=== PATIENT | female | born 1975 | race Caucasian/White ===

== ENCOUNTER → 2016-10-05 | Outpatient (CLI) | payer OTHER ==
--- NOTE | 2016-10-06 06:40 | REP ---
MRI LUMBAR SPINE WITHOUT CONTRAST: HISTORY: Back pain. COMPARISON: 10/02/2015. Decreased signal intensity on T2-weighted images is present in the L2-3 through L5-S1 intervertebral discs. The L3-4 and L4-5 intervertebral discs are decreased in height. These findings are consistent with disc degeneration. There is no disc bulge or herniation at the L1-2 and L2-3 levels. The nerves exit the neural foramina without compression. A diffuse disc bulge is present at the L3-4 level. There is minimal compression of the thecal sac. The L3 nerves exit the neural foramina without compression. A diffuse disc bulge is present at the L4-5 level. There is minimal compression of the thecal sac. The L4 nerves exit the neural foramina without compression. A diffuse disc bulge and small right paracentral and intraforaminal disc protrusion are present at the L5-S1 level. There is minimal compression of the thecal sac and right S1 nerve as it exits the thecal sac. The left S1 nerve is normal. The L5 nerves exit the neural foramina without compression. The conus medullaris is normal in appearance terminating at the level of the T12 vertebral body. A hemangioma is present in the L2 vertebral body. Increased signal intensity on T2-weighted images is present in the endplates of the L2, L4 and L5 vertebral bodies. This represents degenerative change. IMPRESSION: 1. Diffuse disc bulges at the L3-4 and L4-5 levels with minimal thecal sac compression. 2. Diffuse disc bulge and small right paracentral and intraforaminal disc protrusion at the L5-S1 level with minimal compression of the thecal sac and right S1 nerve as it exits the thecal sac. There is no significant change compared to the previous study. Signed by Moshe Dean MD 10/06/2016 08:22 A
== END ==
LOC: M RAD 17:48
PROVIDERS: ATTEND Physician Assistant Medical
DX: M51.26 Other intervertebral disc displacement, lumbar region (principal); M51.27 Other intervertebral disc displacement, lumbosacral region

== ENCOUNTER → 2017-03-21 | Outpatient (CLI) | payer OTHER ==
--- NOTE | 2017-03-21 18:41 | REP ---
LEFT FOOT SERIES: AP and lateral views of the left foot are performed. I see no acute fracture or dislocation. There is mild inferior calcaneal spurring. There is a tiny dorsal navicular spur. There is mild spurring of the head of the 3rd metatarsal. There is slight narrowing at the first metatarsal phalangeal joint as well as the interphalangeal joints diffusely. IMPRESSION: Mild degenerative changes as discussed in detail above. Signed by Elver Hernandez MD 03/22/2017 04:37 P
== END ==
LOC: M RAD 15:45
PROVIDERS: ATTEND Physician Assistant Medical
DX: M77.32 Calcaneal spur, left foot (principal)

== ENCOUNTER → 2017-05-16 | Outpatient (REF) | payer OTHER ==
[~2017-05-16] MED LIST: FENO160T10; HYDR-3716; LEVO25TA5; LORA10TA2; MINO100C4; MONT10TA2; PANT40TA2; TIZA4CAP3; VENL150C43; VITA1CAP40; ZOLP5TAB
== END ==
LOC: M SFHCWAGY 13:52
PROVIDERS: ATTEND Nurse Practitioner Family
DX: Z12.4 Encounter for screening for malignant neoplasm of cervix (principal); Z12.31 Encounter for screening mammogram for malignant neoplasm of breast

== ENCOUNTER → 2017-05-16 | Outpatient (CLI) | payer OTHER ==
--- NOTE | 2017-05-16 14:40 | REPMRS ---
Patient History The patient states she had a clinical breast exam in 04/2017. Patient had first child at age 35. Family history of breast cancer in mother at age 64. Digital Woman Screen Mammo: May 16, 2017 - Exam #: [id number] Bilateral CC and MLO view(s) were taken. Technologist: Fouzia Juarez, Technologist FINDINGS: There are scattered fibroglandular densities. There is no evidence of cancer on this mammogram. ASSESSMENT: BI-RADS/ACR category 2 mammogram. Benign finding(s). Recommendation Routine screening mammogram of both breasts in 1 year (for women over age 40). This mammogram was interpreted with the aid of an FDA-approved computer-aided dectection system. Electronically Signed By: Elver Hernandez MD 05/16/17 9750
== END ==
LOC: M WHC 13:21
PROVIDERS: ATTEND Nurse Practitioner Family
DX: Z12.31 Encounter for screening mammogram for malignant neoplasm of breast (principal)

== ENCOUNTER 2017-06-09 17:32 | Emergency (ER) | payer OTHER ==
[~2017-06-09] VITALS: Ht 172.7 cm; Wt 123.6 kg
[2017-06-09] MEDS ORDERED: HYDR-3716 (17:50)
[2017-06-09] MEDS ORDERED: LORA10TA2 (17:50)
[2017-06-09] MEDS ORDERED: MINO100C4 (17:50)
[2017-06-09] MEDS ORDERED: TIZA4CAP3 (17:50)
[2017-06-09] MEDS ORDERED: MONT10TA2 (17:50)
[2017-06-09] MEDS ORDERED: PANT40TA2 (17:50)
[2017-06-09] MEDS ORDERED: ZOLP5TAB (17:50)
[2017-06-09] MEDS ORDERED: FENO160T10 (17:50)
[2017-06-09] MEDS ORDERED: VENL150C43 (17:50)
[2017-06-09] MEDS ORDERED: VITA1CAP40 (17:50)
[2017-06-09] MEDS ORDERED: LEVO25TA5 (17:50)
[2017-06-09] MEDS ORDERED: ASPIRIN 81 MG CHEW TABLET PO ONE (18:15)
[2017-06-09] MEDS ORDERED: ONDANSETRON 4MG/2ML VIAL (J2405) IV ONE (18:15)
[2017-06-09] MEDS ORDERED: MORPHINE 2 MG/ML 1ML SYRINGE IV ONE ×2 (18:15→21:30)
[2017-06-09 18:21] LABS: BASO % 0.4 % (0.0-1.0); IMMATURE GRANULOCYTE % 0.4 % (0-0); LYMPH # 1.9 10^3/uL (1.5-4.5); LYMPH % 35.9 % (24.0-44.0); MEAN CORPUSCULAR HEMOGLOBIN 29.6 pg (27.0-33.0); MEAN CORPUSCULAR HGB CONC 32.9 g/dl (32.0-36.5); MEAN CORPUSCULAR VOLUME 90.1 fl (80.0-96.0); MONO # 0.4 10^3/uL (0.0-0.8); MONO % 8.3 % (0.0-5.0); NEUTROPHILS # 2.9 10^3/uL (1.8-7.7); PLATELET COUNT, AUTOMATED 301 10^3/uL (150-450); RED CELL DISTRIBUTION WIDTH 13.1 % (11.5-14.5); WHITE BLOOD COUNT 5.3 10^3/uL (4.0-10.0)
[2017-06-09 18:25] LABS: CONTROL LINE HCG INT CTR LINE PRESENT
[2017-06-09 18:36] LABS: ALBUMIN 3.6 GM/DL (3.2-5.2); ALBUMIN/GLOBULIN RATIO 1.24 (1.00-1.93); ALKALINE PHOSPHATASE 49 U/L (45-117); ANION GAP 8 MEQ/L (8-16); AST/SGOT 14 U/L (7-37); BILIRUBIN,DIRECT 0.1 MG/DL (0.0-0.2); BILIRUBIN,TOTAL 0.2 MG/DL (0.2-1.0); BLOOD UREA NITROGEN 13 MG/DL (7-18); CALCIUM LEVEL 8.8 MG/DL (8.5-10.1); CARBON DIOXIDE LEVEL 27 MEQ/L (21-32); CHLORIDE LEVEL 108 MEQ/L (98-107); CREATININE FOR GFR 0.87 MG/DL (0.55-1.02); FREE T4 1.13 NG/DL (0.76-1.46); GLOMERULAR FILTRATION RATE > 60.0 (>58); GLUCOSE, FASTING 98 MG/DL (70-105); POTASSIUM SERUM 4.1 MEQ/L (3.5-5.1); SODIUM LEVEL 143 MEQ/L (136-145); TOTAL PROTEIN 6.5 GM/DL (6.4-8.2)
[2017-06-09 18:41] LABS: ALT/SGPT 27 U/L (12-78)
[2017-06-09] MEDS ORDERED: LOSARTAN 50 MG TAB PO ONE (18:45)
[2017-06-09] MEDS ORDERED: CHLORTHALIDONE 25 MG TAB PO ONE (18:45)
[2017-06-09 18:54] VITALS: BP 166/96
[2017-06-09] MEDS ORDERED: GI COCKTAIL 50ML BTL(HYOSCYAMINE/MAALOX/LIDOCAINE VISCOUS)(1:3:1) PO ONE (19:15)
--- NOTE | 2017-06-09 19:15 | REP ---
Chest one-view HISTORY: Chest pain Comparison: 12/24/2015 The lungs are clear. The heart is normal in size. The pulmonary vasculature is normal in appearance. Impression: No acute disease. Signed by Moshe Dean MD 06/09/2017 07:07 P
[2017-06-09] MEDS ORDERED: ISOVUE-370 76% 100ML VIAL (Q9967) As Ordered ONE (19:51)
--- NOTE | 2017-06-09 20:20 | REPUSA ---
Clinical history: Right upper quadrant pain. Findings: The study is severely limited because of the patient's body habitus. The visualized portion s of the liver and gallbladder are within normal limits. The biliary ducts are not well visualized. T he right kidney measures 11 cm in length and is unremarkable. There is no ascites. Impression: No acute findings.
[2017-06-09] MEDS ORDERED: ONDANSETRON 4 MG ORAL DISINTEGRATING TAB (S0181) PO ONE (20:30)
--- NOTE | 2017-06-09 20:30 | REPUSA ---
CT angiogram of the chest Clinical statement: Chest pain and shortness of breath. Technique: Multiple axial CT images were obtained from the thoracic inlet through the upper abdomen a fter a bolus administration of nonionic intravenous contrast. Coronal and sagittal reconstructions we re also obtained. No comparison is available. Findings: The pulmonary arteries are well-opacified with contrast, with no intraluminal filling defec ts to suggest embolism. The thoracic aorta is unremarkable. Thyroid gland is within normal limits. Th ere is no thoracic lymphadenopathy. There are no pericardial or pleural effusions. The lungs are aftab r. Limited imaging of the upper abdomen demonstrates a small gallstone in the next the gallbladder. T here are no suspicious osseous lesions. Impression: 1. No evidence of pulmonary embolism. 2. No acute intrapulmonary disease. 3. Cholelithiasis.
[2017-06-09] MEDS ORDERED: MORPHINE 4 MG/ML 1ML SYRINGE IV ONE (22:45)
[2017-06-09 23:14] VITALS: BP 147/84
[2017-06-09] MEDS ORDERED: NORCO 5/325MG TABLET (BULK FOR ED) PO ONE (23:15)
--- NOTE | 2017-06-10 07:20 | ECGEPIP ---
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
--- NOTE | 2017-06-10 07:21 | ECGEPIP ---
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
--- NOTE | 2017-06-10 07:23 | ECGEPIP ---
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
--- NOTE | 2017-06-10 07:30 | REP ---
Portable chest, two views, end inspiration and and expiration: Comparison is 06/09/2017. Lung yanes are clear. Cardiac size is enlarged, however there has magnification from portable positioning. The catrachita, mediastinum, and bony thorax are unremarkable. There is no pneumothorax. The pleural effusion. Impression: Cardiomegaly. No pneumothorax or pleural effusion. Signed by Elver Vazquez MD 06/10/2017 07:22 A
== END 2017-06-09 23:30 | disposition home or self-care (01) ==
LOC: M ED 17:32
DX: K80.20 Calculus of gallbladder without cholecystitis without obstruction (principal); R94.31 Abnormal electrocardiogram [ECG] [EKG]; E66.9 Obesity, unspecified; G89.29 Other chronic pain; M54.9 Dorsalgia, unspecified; F32.9 Major depressive disorder, single episode, unspecified; Z79.899 Other long term (current) drug therapy
CPT/HCPCS: 71010; 71020; 71275; 76705; 80048; 80076; 82550; 82553; 83690; 84439; 84443; 84703; 85025; 93000; 93041; 94760; 96374; 96375; 96376; 99285; J2405; Q9967

== ENCOUNTER 2017-06-10 17:16 | Emergency (ER) | payer OTHER ==
[~2017-06-10] VITALS: Ht 172.7 cm; Wt 122.7 kg
[2017-06-10] MEDS ORDERED: ONDANSETRON 4MG/2ML VIAL (J2405) IV ONE (17:45)
[2017-06-10] MEDS ORDERED: KETOROLAC 30 MG/ML VIAL (J1885) IV ONE (17:45)
[2017-06-10] MEDS ORDERED: MORPHINE 2 MG/ML 1ML SYRINGE IV PRN (17:45)
[2017-06-10] MEDS ORDERED: NS 1,000 ML IV ONE (17:45)
[2017-06-10 18:01] LABS: BASO % 0.4 % (0.0-1.0); EOS % 0.2 % (0.0-3.0); IMMATURE GRANULOCYTE % 0.2 % (0-0); LYMPH # 1.4 10^3/uL (1.5-4.5); LYMPH % 25.4 % (24.0-44.0); MEAN CORPUSCULAR HEMOGLOBIN 29.2 pg (27.0-33.0); MEAN CORPUSCULAR HGB CONC 32.2 g/dl (32.0-36.5); MEAN CORPUSCULAR VOLUME 90.6 fl (80.0-96.0); MONO # 0.5 10^3/uL (0.0-0.8); MONO % 8.1 % (0.0-5.0); NEUTROPHILS # 3.7 10^3/uL (1.8-7.7); NEUTROPHILS % 65.7 % (36.0-66.0); PLATELET COUNT, AUTOMATED 282 10^3/uL (150-450); RED CELL DISTRIBUTION WIDTH 13.1 % (11.5-14.5); WHITE BLOOD COUNT 5.7 10^3/uL (4.0-10.0)
[2017-06-10 18:16] LABS: INR 0.92
[2017-06-10 18:27] LABS: ALBUMIN 3.4 GM/DL (3.2-5.2); ALBUMIN/GLOBULIN RATIO 1.03 (1.00-1.93); ALKALINE PHOSPHATASE 45 U/L (45-117); ALT/SGPT 26 U/L (12-78); AMYLASE 57 U/L (25-115); ANION GAP 6 MEQ/L (8-16); AST/SGOT 17 U/L (7-37); BILIRUBIN,DIRECT < 0.1 MG/DL (0.0-0.2); BILIRUBIN,TOTAL 0.3 MG/DL (0.2-1.0); BLOOD UREA NITROGEN 13 MG/DL (7-18); CALCIUM LEVEL 8.7 MG/DL (8.5-10.1); CARBON DIOXIDE LEVEL 31 MEQ/L (21-32); CHLORIDE LEVEL 106 MEQ/L (98-107); CREATININE FOR GFR 0.97 MG/DL (0.55-1.02); GLOMERULAR FILTRATION RATE > 60.0 (>58); GLUCOSE, FASTING 94 MG/DL (70-105); POTASSIUM SERUM 4.1 MEQ/L (3.5-5.1); SODIUM LEVEL 143 MEQ/L (136-145); TOTAL PROTEIN 6.7 GM/DL (6.4-8.2)
[2017-06-10 18:56] VITALS: BP 110/56
[2017-06-10] MEDS ORDERED: ONDANSETRON 4 MG ORAL DISINTEGRATING TAB (S0181) PO ONE (19:30)
== END 2017-06-10 19:31 | disposition home or self-care (01) ==
LOC: EDBD 17:16 → M ED 17:16
DX: R10.9 Unspecified abdominal pain (principal); Z79.899 Other long term (current) drug therapy
CPT/HCPCS: 80048; 80076; 82150; 83690; 85025; 85610; 96361; 96374; 96375; 99284; J1885; J2405

== ENCOUNTER → 2017-07-11 | Outpatient (CLI) | payer OTHER ==
[~2017-07-11] MED LIST changes: +ASPI81TA85 PO; -FENO160T10; +FENO160T10 PO; -HYDR-3716; +HYDR-3716 PO; -LEVO25TA5; +LEVO25TA5 PO; -LORA10TA2; +LORA10TA2 PO; -MINO100C4; +MINO100C4 PO; -MONT10TA2; +MONT10TA2 PO; -PANT40TA2; +PANT40TA2 PO; -TIZA4CAP3; +TIZA4CAP3 PO; -VENL150C43; +VENL150C43 PO; -VITA1CAP40; +VITA1CAP40 PO
--- NOTE | 2017-07-11 14:38 | REP ---
Pelvic sonography: History: Left lower quadrant pain. Comparison pelvic sonography March 03, 2015. Findings: Transabdominal and transvaginal scanning are included. Uterine dimensions of 10.0 x 4.0 x 5.8 cm. Endometrial echo is 0.7 cm thick. There is a right posterior fibroid measuring 1.9 x 1.5 x 1.5 cm. Visualized bladder gilbert are smooth. No free fluid is seen. A 1.7 cm follicle is seen in the left ovary. Left ovary measures 2.9 x 2.2 x 3.0 cm. Right ovary dimensions are 1.7 x 1.1 x 2.3 cm. Doppler flow is normal in both ovaries. Resistive indices are recorded at 0.57 on the right and 0.58 on the left. Impression: 1.9 cm right posterior uterine fibroid. Otherwise negative pelvic sonography.
== END ==
LOC: M WHC 08:56
PROVIDERS: ATTEND Nurse Practitioner Family
DX: R10.32 Left lower quadrant pain (principal); D25.9 Leiomyoma of uterus, unspecified

== ENCOUNTER → 2017-07-20 | Day surgery (SDC) | payer OTHER ==
[~2017-07-20] VITALS: Ht 172.7 cm; Wt 123.4 kg
[~2017-07-20] MED LIST changes: +LIDOCAINE 2% INJ 100 MG/5 ML SDV (FOR ANES.) As Ordered ONE; +NS 1,000 ML IV ONE; +PROPOFOL 200 MG/20 ML VIAL As Ordered ONE; +fentaNYL 100 MCG/2 ML INJECTION (J3010) As Ordered ONE
--- NOTE | 2017-07-20 12:05 | ROOR ---
Patient Name: Swati Buckley Procedure Date: 07/20/2017 11:46 AM Date of : 1975 Age: 42 Room: [facility] Gender: Female Note Status: Finalized Procedure: Upper GI endoscopy Indications: Epigastric abdominal pain Providers: Chris Pereyra Jr, MD Referring MD: CARLOS ALBERTO BELLE Requesting Provider: Medicines: Propofol per Anesthesia Complications: No immediate complications. Procedure: Pre-Anesthesia Assessment: - Prior to the procedure, a History and Physical was performed, and patient medications and allergies were reviewed. The patient is competent. The risks and benefits of the procedure and the sedation options and risks were discussed with the patient. All questions were answered and informed consent was obtained. Patient identification and proposed procedure were verified by the physician and the nurse in the pre-procedure area and in the procedure room. Mental Status Examination: alert and oriented. Airway Examination: normal oropharyngeal airway and neck mobility. Respiratory Examination: clear to auscultation. CV Examination: normal. ASA Grade Assessment: II - A patient with mild systemic disease. After reviewing the risks and benefits, the patient was deemed in satisfactory condition to undergo the procedure. The anesthesia plan was to use moderate sedation / analgesia (conscious sedation). Immediately prior to administration of medications, the patient was re-assessed for adequacy to receive sedatives. The heart rate, respiratory rate, oxygen saturations, blood pressure, adequacy of pulmonary ventilation, and response to care were monitored throughout the procedure. The physical status of the patient was re-assessed after the procedure. The Endoscope was introduced through the mouth, and advanced to the second part of duodenum. The upper GI endoscopy was accomplished without difficulty. The patient tolerated the procedure well. Findings: The upper third of the esophagus, middle third of the esophagus and lower third of the esophagus were normal. The cardia, gastric fundus, gastric body, gastric antrum, prepyloric region of the stomach and pylorus were normal. The duodenal bulb, first portion of the duodenum and second portion of the duodenum were normal. Impression: - Normal upper third of esophagus, middle third of esophagus and lower third of esophagus. - Normal cardia, gastric fundus, gastric body, antrum, prepyloric region of the stomach and pylorus. - Normal duodenal bulb, first portion of the duodenum and second portion of the duodenum. - No specimens collected. Recommendation: - Discharge patient to home (ambulatory). - Return to my office in 6 weeks. Chris Pereyra MD Chris Pereyra Jr, MD 07/20/2017 12:04:41 PM This report has been signed electronically. Number of Addenda: 0 Note Initiated On: 07/20/2017 11:46 AM Estimated Blood Loss: Estimated blood loss: none.
[2017-07-20 12:31] VITALS: BP 156/100
== END | disposition home or self-care (01) ==
LOC: M OPP 10:30
PROVIDERS: ATTEND Surgery
DX: R10.13 Epigastric pain (principal); E03.9 Hypothyroidism, unspecified; K21.9 Gastro-esophageal reflux disease without esophagitis; E78.5 Hyperlipidemia, unspecified; F41.9 Anxiety disorder, unspecified; F32.9 Major depressive disorder, single episode, unspecified; R06.83 Snoring; M54.9 Dorsalgia, unspecified; K80.20 Calculus of gallbladder without cholecystitis without obstruction; Z87.891 Personal history of nicotine dependence; Z79.82 Long term (current) use of aspirin; Z79.899 Other long term (current) drug therapy; Z80.9 Family history of malignant neoplasm, unspecified
CPT/HCPCS: 43235; J3010

== ENCOUNTER → 2017-08-25 | Outpatient (CLI) | payer OTHER ==
[2017-08-25 19:26] LABS: APPEARANCE, URINE HAZY (CLEAR); BACTERIA, URINE AUTO NEGATIVE (NEGATIVE); BILIRUBIN, URINE AUTO NEGATIVE (NEGATIVE); BLOOD, URINE BLOOD NEGATIVE (NEGATIVE); COLOR, URINE YELLOW (YELLOW); GLUCOSE, URINE (UA) AUTO NEGATIVE (NEGATIVE); KETONE, URINE AUTO NEGATIVE (NEGATIVE); LEUKOCYTE ESTERASE, URINE AUTO NEGATIVE (NEGATIVE); MUCUS, URINE SMALL (NEGATIVE); NITRITE, URINE AUTO NEGATIVE (NEGATIVE); PROTEIN, URINE AUTO NEGATIVE (NEGATIVE); RBC, URINE AUTO 0 /HPF (0-3); SPECIFIC GRAVITY URINE AUTO 1.017 (1.002-1.035); SQUAMOUS EPITHELIAL CELL UR AU 1 /HPF (0-6); UROBILINOGEN, URINE AUTO 0.2 mg/dL (0.0-2.0); WBC, URINE AUTO 0 /HPF (0-3)
[2017-08-25 19:27] LABS: ALBUMIN/GLOBULIN RATIO 1.18 (1.00-1.93); ALKALINE PHOSPHATASE 56 U/L (45-117); ALT/SGPT 23 U/L (12-78); AST/SGOT 16 U/L (7-37); BASO % 0.4 % (0.0-1.0); BILIRUBIN,DIRECT 0.1 MG/DL (0.0-0.2); BILIRUBIN,TOTAL 0.3 MG/DL (0.2-1.0); EOS % 0.1 % (0.0-3.0); HEMATOCRIT 37.7 % (36.0-47.0); HEMOGLOBIN 12.3 g/dl (12.0-16.0); IMMATURE GRANULOCYTE % 0.3 % (0-0); LYMPH % 28.3 % (24.0-44.0); MEAN CORPUSCULAR HEMOGLOBIN 29.1 pg (27.0-33.0); MEAN CORPUSCULAR HGB CONC 32.6 g/dl (32.0-36.5); MEAN CORPUSCULAR VOLUME 89.1 fl (80.0-96.0); MONO # 0.6 10^3/uL (0.0-0.8); MONO % 8.3 % (0.0-5.0); NEUTROPHILS # 4.4 10^3/uL (1.8-7.7); NEUTROPHILS % 62.6 % (36.0-66.0); PLATELET COUNT, AUTOMATED 348 10^3/uL (150-450); RED BLOOD COUNT 4.23 10^6/uL (4.00-5.40); TOTAL PROTEIN 7.4 GM/DL (6.4-8.2)
== END ==
LOC: M LAB 17:21
DX: R10.11 Right upper quadrant pain (principal); R30.0 Dysuria
CPT/HCPCS: 80076

== ENCOUNTER → 2017-09-08 | Outpatient (CLI) | payer OTHER | LOC: M RAD 08:35 | DX: R10.9 Unspecified abdominal pain (principal) | CPT/HCPCS: J2805 ==

== ENCOUNTER → 2017-09-13 | Outpatient (CLI) | payer OTHER ==
[~2017-09-13] MED LIST changes: -ASPI81TA85 PO; -FENO160T10 PO; +GASTROGRAFIN SOLUTION 30ML (Q9963) As Ordered; -HYDR-3716 PO; +ISOVUE-370 76% 100ML VIAL (Q9967) As Ordered; -LEVO25TA5 PO; -LIDOCAINE 2% INJ 100 MG/5 ML SDV (FOR ANES.) As Ordered ONE; -LORA10TA2 PO; -MINO100C4 PO; -MONT10TA2 PO; -NS 1,000 ML IV ONE; -PANT40TA2 PO; -PROPOFOL 200 MG/20 ML VIAL As Ordered ONE; -TIZA4CAP3 PO; -VENL150C43 PO; -VITA1CAP40 PO; -ZOLP5TAB; -fentaNYL 100 MCG/2 ML INJECTION (J3010) As Ordered ONE
== END ==
LOC: M RAD 11:54
DX: R10.9 Unspecified abdominal pain (principal)
CPT/HCPCS: Q9963

== ENCOUNTER 2017-11-16 09:37 | Day surgery (SDC) | payer OTHER ==
[~2017-11-16 09:37] MED LIST changes: -GASTROGRAFIN SOLUTION 30ML (Q9963) As Ordered; -ISOVUE-370 76% 100ML VIAL (Q9967) As Ordered; +LIDOCAINE 2% MDV 20 ML VIAL As Ordered; +PROPOFOL 200 MG/20 ML VIAL As Ordered
== END 2017-11-16 12:01 | disposition home or self-care (01) ==
LOC: M OPP 09:37
DX: R10.84 Generalized abdominal pain (principal); K59.00 Constipation, unspecified; K62.89 Other specified diseases of anus and rectum; K64.8 Other hemorrhoids; E03.9 Hypothyroidism, unspecified; E78.5 Hyperlipidemia, unspecified; K21.9 Gastro-esophageal reflux disease without esophagitis; D68.9 Coagulation defect, unspecified; F32.9 Major depressive disorder, single episode, unspecified; F41.9 Anxiety disorder, unspecified; R06.83 Snoring; E66.9 Obesity, unspecified; Z87.891 Personal history of nicotine dependence; Z79.82 Long term (current) use of aspirin; Z79.899 Other long term (current) drug therapy
CPT/HCPCS: 45378

== ENCOUNTER → 2018-03-13 | Outpatient (REF) | payer OTHER ==
[2018-03-13 17:23] LABS: INR 0.98; PROTHROMBIN TIME 13.1 SECONDS (12.1-14.4)
== END ==
LOC: M LAB REF 16:42
DX: D68.59 Other primary thrombophilia (principal)

== ENCOUNTER → 2018-05-22 | Outpatient (CLI) | payer OTHER | LOC: M RAD 14:55 | DX: R22.1 Localized swelling, mass and lump, neck (principal); R22.2 Localized swelling, mass and lump, trunk | CPT/HCPCS: 76536 ==

== ENCOUNTER 2018-05-24 20:07 | Emergency (ER) | payer OTHER | END 2018-05-24 21:26 | disposition left against medical advice (07) | LOC: M ED 20:07 | DX: Z53.29 Procedure and treatment not carried out because of patient's decision for other reasons (principal) ==

== ENCOUNTER 2018-06-29 14:16 | Day surgery (SDC) | payer OTHER ==
[2018-06-29] MEDS ORDERED: ROCURONIUM BROMIDE 50 MG/5 ML VIAL As Ordered (14:29)
[2018-06-29] MEDS ORDERED: dexameTHASONE 4 MG/ML 1ML VIAL (J1100) As Ordered (14:29)
[2018-06-29] MEDS ORDERED: ONDANSETRON 4MG/2ML VIAL (J2405) As Ordered (14:29)
[2018-06-29] MEDS ORDERED: LIDOCAINE 2% INJ 100 MG/5 ML SDV (FOR ANES.) As Ordered (14:29)
[2018-06-29] MEDS ORDERED: PROPOFOL 200 MG/20 ML VIAL As Ordered ×2 (14:29→16:22)
[2018-06-29] MEDS: LR 1,000 ML IV (14:30)
[2018-06-29] MEDS ORDERED: fentaNYL 100 MCG/2 ML INJECTION (J3010) As Ordered (14:31)
[2018-06-29] MEDS ORDERED: MIDAZOLAM INJ 2 MG/2 ML VIAL (J2250) As Ordered (14:31)
[2018-06-29 15:03] LABS: CONTROL LINE UCG INT CTR LINE PRESENT; URINE PREG TEST NEGATIVE (NEGATIVE)
[2018-06-29] MEDS ORDERED: BUPIVACAINE/EPIN 0.25% 30 ML VIAL As Ordered (15:40)
[2018-06-29] MEDS: NORCO, ANEXSIA 5/325MG TABLET (HYDROcodone/ACETAMINOPHEN) PO (17:00)
[2018-06-29] MEDS ORDERED: LR 1,000 ML IV (17:00)
== END 2018-06-29 17:20 | disposition home or self-care (01) ==
LOC: M SDC 14:16
DX: D17.1 Benign lipomatous neoplasm of skin and subcutaneous tissue of trunk (principal)
CPT/HCPCS: 11406

== ENCOUNTER → 2018-09-19 | Outpatient (REF) | payer OTHER ==
[~2018-09-19] MED LIST changes: +ABIL1TAB11 PO; +AMLO10TA5 PO; +AMLO2.5T3 PO; +ARIP10TAB PO; +ASPI81TA85 PO; +B121000T SL; +FENO160T10 PO; +FOLI1TAB11 PO; +FOLI800C PO; +FOLTTAB9 PO; +HYDR-3716 PO; +LEVO25TA5 PO; -LIDOCAINE 2% MDV 20 ML VIAL As Ordered; +LINZ290C PO; +LORA-243 PO; +MINO100C4 PO; +MONT10TA2 PO; +PANT40TA3 PO; -PROPOFOL 200 MG/20 ML VIAL As Ordered; +PYRI100T2 PO; +PYRI25TA4 PO; +TIZA4CAP PO; +TRUL3TAB PO; +VENL150C43 PO; +VENL75TA2 PO; +VITA50005 PO; +ZOLP5TAB; +ZYRT10CA PO
[2018-09-19 19:04] LABS: BLOOD UREA NITROGEN 15 MG/DL (7-18); CALCIUM LEVEL 8.6 MG/DL (8.5-10.1); CARBON DIOXIDE LEVEL 26 MEQ/L (21-32); CHLORIDE LEVEL 108 MEQ/L (98-107); CREATININE FOR GFR 0.83 MG/DL (0.55-1.30); GLOMERULAR FILTRATION RATE > 60.0 (>58); GLUCOSE, FASTING 97 MG/DL (70-100); POTASSIUM SERUM 4.2 MEQ/L (3.5-5.1); SODIUM LEVEL 140 MEQ/L (136-145)
== END ==
LOC: M LAB REF 17:11
PROVIDERS: ATTEND Podiatrist Foot & Ankle Surgery
DX: Z01.818 Encounter for other preprocedural examination (principal)

== ENCOUNTER 2018-09-25 12:15 | Day surgery (SDC) | payer OTHER ==
[~2018-09-25] VITALS: Ht 172.7 cm; Wt 124.7 kg
[~2018-09-25 12:15] MED LIST changes: +NS 1,000 ML IV ONE
[2018-09-25] MEDS ORDERED: fentaNYL 100 MCG/2 ML INJECTION (J3010) As Ordered ONE (12:24)
[2018-09-25] MEDS ORDERED: PROPOFOL 200 MG/20 ML VIAL As Ordered ONE ×2 (12:24→13:46)
[2018-09-25] MEDS ORDERED: LIDOCAINE 2% INJ 100 MG/5 ML SDV (FOR ANES.) As Ordered ONE (12:24)
--- NOTE | 2018-09-25 13:40 | ROOR ---
Patient Name: Swati Buckley Procedure Date: 09/25/2018 1:23 PM Date of : 1975 Age: 43 Room: [facility] Gender: Female Note Status: Finalized Procedure: Upper GI endoscopy Indications: Iron deficiency anemia Providers: Timothy LOGAN MD Referring MD: Fabrice HOLLEY MD, Arleen Munson Md Requesting Provider: Medicines: Monitored Anesthesia Care Complications: No immediate complications. Procedure: Pre-Anesthesia Assessment: - The heart rate, respiratory rate, oxygen saturations, blood pressure, adequacy of pulmonary ventilation, and response to care were monitored throughout the procedure. The Endoscope was introduced through the mouth, and advanced to the third part of duodenum. The upper GI endoscopy was accomplished without difficulty. The patient tolerated the procedure well. Findings: The esophagus was normal. The stomach was normal. (large volume, compliant stomach sometimes seen in gastroparesis) The examined duodenum was normal. Biopsies for histology were taken with a cold forceps in the second portion of the duodenum and in the third portion of the duodenum for evaluation of celiac disease. Impression: - Normal esophagus. - Normal stomach. - Normal examined duodenum. - Biopsies were taken with a cold forceps for evaluation of celiac disease. Recommendation: - Telephone endoscopist for pathology results in 2 weeks. Timothy Logan MD Timothy LOGAN MD 09/25/2018 1:39:35 PM This report has been signed electronically. Number of Addenda: 0 Note Initiated On: 09/25/2018 1:23 PM Estimated Blood Loss: Estimated blood loss: none.
--- NOTE | 2018-09-25 14:01 | ROOR ---
Patient Name: Swati Buckley Procedure Date: 09/25/2018 1:25 PM Date of : 1975 Age: 43 Room: OS[facility]02 Gender: Female Note Status: Finalized Procedure: Colonoscopy Indications: Last colonoscopy: October 2017, Iron deficiency anemia Providers: Timothy LOGAN MD Referring MD: Fabrice HOLLEY MD, Arleen Munson Md Requesting Provider: Medicines: Monitored Anesthesia Care Complications: No immediate complications. Procedure: Pre-Anesthesia Assessment: - The heart rate, respiratory rate, oxygen saturations, blood pressure, adequacy of pulmonary ventilation, and response to care were monitored throughout the procedure. The Colonoscope was introduced through the anus and advanced to 6 cm into the ileum. The colonoscopy was performed without difficulty. The patient tolerated the procedure well. The quality of the bowel preparation was adequate and fair. Findings: The perianal and digital rectal examinations were normal. Small Internal Hemorrhoids. The entire examined colon appeared normal on direct and retroflexion views. Impression: - Preparation of the colon was fair/adequate after lavage. - Small Internal Hemorrhoids. - The entire colon is normal on direct and retroflexion views. - No specimens collected. Recommendation: - Continue present medications. Timothy Logan MD Timothy LOGAN MD 09/25/2018 2:00:18 PM This report has been signed electronically. Number of Addenda: 0 Note Initiated On: 09/25/2018 1:25 PM Estimated Blood Loss: Estimated blood loss: none.
[2018-09-25 14:20] VITALS: BP 156/78
== END 2018-09-25 14:40 | disposition home or self-care (01) ==
LOC: M OPP 12:15
PROVIDERS: ATTEND Internal Medicine Gastroenterology
DX: D50.9 Iron deficiency anemia, unspecified (principal); K64.8 Other hemorrhoids; K21.9 Gastro-esophageal reflux disease without esophagitis; D68.2 Hereditary deficiency of other clotting factors; Z79.82 Long term (current) use of aspirin; Z79.899 Other long term (current) drug therapy; Z80.3 Family history of malignant neoplasm of breast
CPT/HCPCS: 43239; 45378; 88305; J3010

== ENCOUNTER → 2018-10-22 | Outpatient (CLI) | payer OTHER ==
[~2018-10-22] MED LIST changes: +IBUP-1114 PO; -NS 1,000 ML IV ONE; +SUCR1TAB56 PO
--- NOTE | 2018-10-22 16:02 | REPMRS ---
Patient History The patient states she had a clinical breast exam in 09/2018. Patient had first child at age 35. Family history of breast cancer at age 64 in mother. No Hormone Replacement Therapy 3D TOMOSYNTHESIS WAS PERFORMED. Digital Woman Screen Mammo: October 22, 2018 - Exam #: [id number] Bilateral CC and MLO view(s) were taken. Technologist: Fouzia Juarez, Technologist Prior study comparison: May 16, 2017, digital woman screen mammo performed at [facility]. FINDINGS: The breast tissue is heterogeneously dense. This may lower the sensitivity of mammography. There has been no change in the appearance of the mammogram from the prior studies. There is a moderate amount of residual fibroglandular tissue which is fairly symmetric. There is no interval development of dominant mass, areas of architectural distortion, or clustered microcalcification typical of malignancy. Assessment: BI-RADS/ACR category 1 mammogram. Negative Mammogram. Recommendation Routine screening mammogram in 1 year (for women over age 40). This mammogram was interpreted with the aid of an FDA-approved computer-aided dectection system. THE LIFETIME RISK OF BREAST CANCER IS 26%, THEREFORE SUPPLEMENTAL SCREENING MRI OF THE BREASTS IS RECOMMENDED. Electronically Signed By: Elver Hernandez MD 10/22/18 1621
== END ==
LOC: M WHC 14:32
PROVIDERS: ATTEND Nurse Practitioner Family
DX: Z12.31 Encounter for screening mammogram for malignant neoplasm of breast (principal); Z80.3 Family history of malignant neoplasm of breast

== ENCOUNTER → 2018-10-22 | Outpatient (REF) | payer OTHER ==
[~2018-10-22] MED LIST changes: -IBUP-1114 PO; -SUCR1TAB56 PO
[2018-10-24 14:12] LABS: HPV HYBRID CAPTURE II Negative (Negative)
== END ==
LOC: M SFHCWAGY 15:04
PROVIDERS: ATTEND Nurse Practitioner Family
DX: Z12.4 Encounter for screening for malignant neoplasm of cervix (principal)

== ENCOUNTER 2018-10-29 11:23 | Emergency (ER) | payer OTHER ==
[~2018-10-29] VITALS: Ht 172.7 cm; Wt 125.0 kg
[~2018-10-29 11:23] MED LIST changes: -ARIP10TAB PO; +ARIP1TAB PO; -IBUP-1114 PO; -SUCR1TAB56 PO
[2018-10-29 12:20] LABS: BASO % 0.4 % (0.0-1.0); EOS # 0.1 10^3/uL (0.0-0.50); EOS % 1.9 % (0.0-3.0); HEMATOCRIT 35.6 % (36.0-47.0); HEMOGLOBIN 11.9 g/dl (12.0-15.5); LYMPH # 1.2 10^3/uL (1.5-4.5); LYMPH % 22.4 % (24.0-44.0); MEAN CORPUSCULAR HEMOGLOBIN 31.1 pg (27.0-33.0); MEAN CORPUSCULAR HGB CONC 33.4 g/dl (32.0-36.5); MONO # 0.4 10^3/uL (0.0-0.8); MONO % 7.8 % (0.0-5.0); NEUTROPHILS # 3.5 10^3/uL (1.8-7.7); NEUTROPHILS % 67.1 % (36.0-66.0); PLATELET COUNT, AUTOMATED 317 10^3/uL (150-450); RED BLOOD COUNT 3.83 10^6/uL (4.00-5.40); WHITE BLOOD COUNT 5.3 10^3/uL (4.0-10.0)
--- NOTE | 2018-10-29 12:35 | REP ---
CHEST, SINGLE VIEW: There is no evidence of acute infiltrate. No pleural effusion is seen. The heart is normal in size. The mediastinal silhouette is unremarkable. The visualized osseous structures are intact. IMPRESSION: No acute pulmonary disease. Electronically Signed by Elver Hernandez MD 10/29/2018 12:48 P
[2018-10-29] MEDS ORDERED: GI COCKTAIL 50ML BTL(HYOSCYAMINE/MAALOX/LIDOCAINE VISCOUS)(1:3:1) PO ONE (12:45)
[2018-10-29 12:52] LABS: ALBUMIN 3.7 GM/DL (3.2-5.2); ALT/SGPT 40 U/L (12-78); BILIRUBIN,DIRECT < 0.1 MG/DL (0.0-0.2); BILIRUBIN,TOTAL 0.2 MG/DL (0.2-1.0); BLOOD UREA NITROGEN 8 MG/DL (7-18); CALCIUM LEVEL 8.1 MG/DL (8.5-10.1); CARBON DIOXIDE LEVEL 22 MEQ/L (21-32); CHLORIDE LEVEL 112 MEQ/L (98-107); CPK CREATINE PHOSPHOKINASE 78 U/L (26-192); CREATININE FOR GFR 0.72 MG/DL (0.55-1.30); GLOMERULAR FILTRATION RATE > 60.0 (>58); GLUCOSE, FASTING 106 MG/DL (70-100); MB/CK RELATIVE INDEX 1.54 (< OR =4); NT-PRO BNP 40 PG/ML (<125); POTASSIUM SERUM 3.8 MEQ/L (3.5-5.1); SODIUM LEVEL 141 MEQ/L (136-145); TOTAL PROTEIN 7.1 GM/DL (6.4-8.2); TROPONIN I < 0.02 NG/ML (< 0.10)
[2018-10-29] MEDS ORDERED: KETOROLAC 30 MG/ML VIAL (J1885) IV ONE (14:30)
[2018-10-29 14:46] LABS: INFLUENZA A AMPLIFICATION NEGATIVE (NEGATIVE); INFLUENZA B AMPLIFICATION NEGATIVE (NEGATIVE)
[2018-10-29] MEDS ORDERED: ISOVUE-370 76% 100ML VIAL (Q9967) As Ordered ONE (16:11)
[2018-10-29] MEDS ORDERED: MORPHINE 2 MG/ML 1ML SYRINGE (J2270) IV ONE (16:15)
--- NOTE | 2018-10-29 16:52 | REP ---
Clinical: Acute chest pain. Comparison: 06/09/2017 Technique: Axial contrast enhanced images from the thoracic inlet to the upper abdomen using 100 ml Isovue 370 intravenous contrast material with coronal and sagittal re-formations. Findings: Satisfactory enhancement of the pulmonary vasculature is achieved and no filling defects are identified to suggest pulmonary embolus. Thoracic aorta is normal caliber without aneurysm or dissection. Heart and pericardium are normal. Bilateral lung yanes are well aerated and clear without acute pulmonary parenchymal consolidation or atelectasis. No nodule or mass lesion. No pleural effusion/reaction. No pneumothorax. No adenopathy. Impression: No evidence for pulmonary embolus. No acute pleuroparenchymal or mediastinal process. Electronically Signed by iJm Dumont MD 10/29/2018 04:43 P
[2018-10-29 18:34] LABS: CK-MB VALUE MASS < 1.0 NG/ML (<3.6); CPK CREATINE PHOSPHOKINASE 64 U/L (26-192); MB/CK RELATIVE INDEX 1.56 (< OR =4); TROPONIN I < 0.02 NG/ML (< 0.10)
[2018-10-29] MEDS ORDERED: IBUP-1114 PO (19:12)
[2018-10-29] MEDS ORDERED: SUCR1TAB56 PO (19:12)
[2018-10-29 19:46] VITALS: BP 124/73
--- NOTE | 2018-10-30 21:46 | ECGEPIP ---
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
--- NOTE | 2018-10-30 21:57 | ECGEPIP ---
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
== END 2018-10-29 19:50 | disposition home or self-care (01) ==
LOC: M ED 11:23
DX: R07.89 Other chest pain (principal); R94.31 Abnormal electrocardiogram [ECG] [EKG]; E61.1 Iron deficiency; I10 Essential (primary) hypertension; E78.00 Pure hypercholesterolemia, unspecified; F33.9 Major depressive disorder, recurrent, unspecified; Z79.899 Other long term (current) drug therapy; Z87.891 Personal history of nicotine dependence; Z82.0 Family history of epilepsy and other diseases of the nervous system
CPT/HCPCS: 71045; 71275; 80048; 80076; 82550; 82553; 83880; 84443; 85025; 87502; 93005; 93041; 94760; 96374; 96375; 99285; J1885; J2270; Q9967

== ENCOUNTER → 2018-10-29 | Outpatient (REF) | payer OTHER ==
[~2018-10-29] MED LIST changes: +IBUP-1114 PO; +SUCR1TAB56 PO
[2018-10-31 16:09] LABS: PERCENT SATURATION 11.1 % (13.2-45.0)
== END ==
LOC: M LAB REF 15:36
PROVIDERS: ATTEND Internal Medicine Hematology & Oncology
DX: D50.9 Iron deficiency anemia, unspecified (principal)

== ENCOUNTER → 2018-11-23 | Outpatient (CLI) | payer OTHER ==
[~2018-11-23] MED LIST changes: +IBUP-1114 PO; +SUCR1TAB56 PO
--- NOTE | 2018-11-23 12:49 | REP ---
PELVIC ULTRASOUND: Real-time sonographic evaluation of the pelvis performed utilizing transabdominal and endovaginal technique. The bladder measures 7.9 x 6.0 x 8.3 cm. The uterus measures 11.2 x 4.3 x 5.5 cm. Endometrial thickness is 10 mm. No endometrial fluid collection is seen. Right ovary measures 2.5 x 2.0 x 2.1 cm. There is a dominant follicle in the right ovary 1.3 cm in diameter. Left ovary could not be visualized. No definite adnexal mass or free fluid is seen. The study is limited due to patient body habitus. IMPRESSION: Limited exam due to patient body habitus. Endometrial thickness is 10 mm with no endometrial fluid collection. Dominant follicle right ovary. Left ovary could not be visualized. No adnexal mass or free fluid. Electronically Signed by Elver Hernandez MD 11/26/2018 01:34 P
== END ==
LOC: M RAD 11:32
PROVIDERS: ATTEND Obstetrics & Gynecology
DX: N92.0 Excessive and frequent menstruation with regular cycle (principal)

== ENCOUNTER → 2018-11-27 | Outpatient (REF) | payer OTHER | LOC: M LAB REF 18:42 | PROVIDERS: ATTEND Obstetrics & Gynecology | DX: N93.9 Abnormal uterine and vaginal bleeding, unspecified (principal) ==

== ENCOUNTER 2018-12-21 05:43 | Day surgery (SDC) | payer OTHER ==
[~2018-12-21] VITALS: Ht 172.7 cm; Wt 127.8 kg
[~2018-12-21 05:43] MED LIST changes: +OXYC1TAB23 PO; +ZYRTTAB8 PO
[2018-12-21] MEDS ORDERED: LR 1,000 ML IV ONE (06:00)
[2018-12-21 06:19] LABS: HEMATOCRIT 37.8 % (36.0-47.0); HEMOGLOBIN 12.4 g/dl (12.0-15.5); MEAN CORPUSCULAR HEMOGLOBIN 29.5 pg (27.0-33.0); MEAN CORPUSCULAR HGB CONC 32.8 g/dl (32.0-36.5); PLATELET COUNT, AUTOMATED 321 10^3/uL (150-450); WHITE BLOOD COUNT 5.6 10^3/uL (4.0-10.0)
[2018-12-21] MEDS ORDERED: MAGN1.743 (06:39)
[2018-12-21 07:04] LABS: URINE PREG TEST NEGATIVE (NEGATIVE)
[2018-12-21] MEDS ORDERED: BUPIVACAINE HCL 0.25% 30 ML VIAL As Ordered ONE (07:17)
[2018-12-21] MEDS ORDERED: METHYLENE BLUE 0.5% (5MG/ML) 10 ML AMP (PROVAYBLUE)(Q9968 PER 1MG) As Ordered ONE (07:17)
[2018-12-21] MEDS ORDERED: ROCURONIUM BROMIDE 50 MG/5 ML VIAL As Ordered ONE ×2 (07:58→08:15)
[2018-12-21] MEDS ORDERED: SUGAMMADEX SODIUM 500 MG/5 ML VIAL (BRIDION) As Ordered ONE (07:58)
[2018-12-21] MEDS ORDERED: LIDOCAINE 2% INJ 100 MG/5 ML SDV (FOR ANES.) As Ordered ONE (07:58)
[2018-12-21] MEDS ORDERED: MIDAZOLAM INJ 2 MG/2 ML VIAL (J2250) As Ordered ONE (07:58)
[2018-12-21] MEDS ORDERED: PROPOFOL 200 MG/20 ML VIAL As Ordered ONE (07:58)
[2018-12-21] MEDS ORDERED: METOCLOPRAMIDE INJ 10MG/2ML VIAL (J2765) As Ordered ONE (07:58)
[2018-12-21] MEDS ORDERED: ONDANSETRON 4MG/2ML VIAL (J2405) As Ordered ONE (07:58)
[2018-12-21] MEDS ORDERED: KETOROLAC 60 MG/2 ML VIAL (J1885) As Ordered ONE (07:58)
[2018-12-21] MEDS ORDERED: dexameTHASONE 4 MG/ML 1ML VIAL (J1100) As Ordered ONE (07:58)
[2018-12-21] MEDS ORDERED: fentaNYL 250 MCG/5 ML INJECTION (J3010) As Ordered ONE (07:58)
[2018-12-21] MEDS ORDERED: ACETAMINOPHEN 1000MG 100ML IV BTL (OFIRMEV) (J0131 PER 10MG) As Ordered ONE (08:16)
[2018-12-21] MEDS ORDERED: HYDROmorphone HCL 2 MG/ML 1ML VIAL (J1170) As Ordered ONE (08:31)
[2018-12-21] MEDS ORDERED: DESFLURANE 240 ML INHALANT As Ordered ONE (09:33)
[2018-12-21] MEDS ORDERED: PERCOCET 5MG/325MG TAB As Ordered ONE (10:39)
[2018-12-21] MEDS ORDERED: PERCOCET 5MG/325MG TAB PO PRN ×2 (10:45→13:45)
[2018-12-21] MEDS ORDERED: ONDANSETRON 4MG/2ML VIAL (J2405) IV PRN (10:45)
[2018-12-21] MEDS ORDERED: MEPERIDINE INJ 25 MG/ML VIAL (J2175) IV PRN (10:45)
[2018-12-21] MEDS ORDERED: LR 1,000 ML IV SCH (10:45)
[2018-12-21] MEDS ORDERED: KETOROLAC 30 MG/ML VIAL (J1885) IV PRN (10:45)
[2018-12-21] MEDS ORDERED: fentaNYL 100 MCG/2 ML INJECTION (J3010) IV PRN (10:45)
[2018-12-21] MEDS ORDERED: PROMETHAZINE INJ 25 MG/ML VIAL (J2550) IV PRN (11:00)
[2018-12-21 11:25] VITALS: BP 133/81
[2018-12-21 11:55] VITALS: BP 130/85
--- NOTE | 2018-12-21 12:46 | RO ---
DATE OF PROCEDURE: 12/21/2018 PREOPERATIVE DIAGNOSIS: 1. Abnormal uterine bleeding. POSTOPERATIVE DIAGNOSIS: 1. Abnormal uterine bleeding. 2. Ventral hernia. PROCEDURES PERFORMED: 1. Robotic-assisted laparoscopic hysterectomy. 2. Bilateral salpingectomy. 3. Lysis of adhesions. 4. Cystoscopy. SURGEON: Tessa Reynoso MD ORAL SURGERY ASSISTANT: Natty Willingham NP ANESTHESIA: General endotracheal anesthesia. ESTIMATED BLOOD LOSS: 100 mL. IV FLUIDS: 1200 mL of lactated Ringer's solution. URINE OUTPUT: 250 mL. PREOPERATIVE ANTIBIOTICS: 2 grams of Ancef. SPECIMENS: Cervix, uterus, bilateral fallopian tube. OPERATIVE FINDINGS: Omental adhesions to anterior abdominal wall as well as to the lower uterine segment. There is approximately a 5 cm ventral hernia along her previous . Normal appearing uterus and bilateral adnexa. DESCRIPTION OF OPERATION: After informed consent was obtained and written consent was reviewed, the patient was brought to the operating room where she was placed under general endotracheal anesthesia. She was then placed in lithotomy position, was prepped and draped in normal sterile fashion. A time out in the operating room was then performed identifying the patient, procedure to be performed as well as drug allergies. Speculum was placed revealing the cervix, the anterior lip of the cervix as well as posterior aspects were stitched with #0 Vicryl. A small VCare uterine manipulator was then advanced through the cervical os for means to manipulate the uterus and was insufflated with 7 mL of air. Cervical cap as well as vaginal sleeve was applied down to the vagina. Armando catheter was placed set to gravity. Gloves were changed. Attention was then turned to the patient's abdomen where Veress needle was placed in the umbilicus and pneumoperitoneum was obtained with CO2 gas. Supraumbilical area was then infused with 0.25% Marcaine. An incision was made in this area and an 8 mm trocar sleeve was then advanced through this incision. A laparoscope was then replaced revealing intra-abdominal placement. Additional three ports were placed, one was to the patient's right side parallel to the umbilicus. The other two were placed to the left side, one was parallel to the umbilicus, the other slightly above. Each one of these areas were infused with 0.25% Marcaine. An incision was made in each one of these areas. An 8 mm trocar with sleeve was advanced through each one of these incisions under direct visualization. Next da Moraima was then docked utilizing the camera arm, two operative arms. Using a vessel sealer, lysis of adhesions was then performed releasing the omentum from the anterior abdominal wall as well as adhesions from the anterior abdominal wall to the lower uterine segment. Hemostasis noted along the surgical sites. Attention was then turned towards the hysterectomy. The mesosalpinx bilaterally were dissected along the fallopian tube using a vessel sealer. The utero-ovarian ligaments bilaterally were then cauterized and ligated with good hemostasis noted. The round ligaments were then cauterized and ligated with good hemostasis noted. The broad ligaments were then into the anterior posterior leaf. The anterior leaf of the broad ligament was then dissected along the bladder creating a bladder flap. The remainder of the broad cardinal ligaments were cauterized and ligated with good hemostasis noted. The uterine vessels were then skeletonized bilaterally and were cauterized and ligated with good hemostasis noted. Using monopolar scissors, anterior and posterior colpotomies were made and the uterus was removed vaginally. Surgical sites were inspected and noted to be hemostatic. The vaginal cuff was then closed using #0 V-Loc in a running nonlocking fashion. Surgical sites were then irrigated and then suctioned. Jessica was applied over the surgical yanes. The surgical sites once again noted to be hemostatic. Instruments were then removed from the patient's abdomen and pneumoperitoneum was then released. Attention was then turned to the patient for cystoscopy. Armando catheter was removed. The cystoscope was then inserted transurethrally through the urethra and the bladder was inspected showing normal bladder mucosa. No foreign objects. Bilateral uterine jets were observed. The cystoscope was then removed. The bladder was drained. Gloves changed and attention was turned to the patient's abdomen where all four port sites were closed with #4-0 Monocryl and was dressed with Dermabond. The patient was then taken out of lithotomy position and was awakened from general anesthesia and taken to recovery in stable condition. Natty Willingham, my surgical supplies sterilizer played an essential role during surgery. She assisted with port placement, tissue identification, retraction, as well as removal of the specimen and port closure.
[2018-12-21] MEDS ORDERED: KETOROLAC 30 MG/ML VIAL (J1885) IV SCH (16:00)
== END 2018-12-21 14:08 | disposition home or self-care (01) ==
LOC: M SDC 05:43 → M PED 11:50 → M SDC 14:08
PROVIDERS: ATTEND Obstetrics & Gynecology
DX: N92.6 Irregular menstruation, unspecified (principal); N73.6 Female pelvic peritoneal adhesions (postinfective); D25.1 Intramural leiomyoma of uterus; I10 Essential (primary) hypertension; E78.5 Hyperlipidemia, unspecified; E03.9 Hypothyroidism, unspecified; F41.9 Anxiety disorder, unspecified; D64.9 Anemia, unspecified; Z79.82 Long term (current) use of aspirin; Z79.899 Other long term (current) drug therapy
CPT/HCPCS: 36415; 58571; 84703; 85027; 86850; 86900; 86901; 88307; J0131; J0690; J1100; J1170; J1885; J2250; J2405; J2765; J3010

== ENCOUNTER 2019-08-26 10:49 | Inpatient (IN) | payer OTHER ==
[~2019-08-26] VITALS: Ht 172.7 cm; Wt 125.0 kg
[~2019-08-26 10:49] MED LIST changes: +MAGN1.743; -PYRI100T2 PO; +VITA100T82 PO
[2019-08-26 11:33] LABS: BASO % 0.6 % (0.0-1.0); EOS # 0.2 10^3/uL (0.0-0.5); EOS % 3.3 % (0.0-3.0); HEMATOCRIT 39.2 % (36.0-47.0); HEMOGLOBIN 12.7 g/dl (12.0-15.5); LYMPH # 1.5 10^3/uL (1.5-5.0); LYMPH % 29.6 % (24.0-44.0); MEAN CORPUSCULAR HEMOGLOBIN 29.6 pg (27.0-33.0); MEAN CORPUSCULAR HGB CONC 32.4 g/dl (32.0-36.5); MEAN CORPUSCULAR VOLUME 91.4 fl (80.0-96.0); MONO # 0.4 10^3/uL (0.0-0.8); MONO % 7.2 % (0.0-5.0); NEUTROPHILS % 59.1 % (36.0-66.0); PLATELET COUNT, AUTOMATED 294 10^3/uL (150-450); RED BLOOD COUNT 4.29 10^6/uL (4.00-5.40); WHITE BLOOD COUNT 5.1 10^3/uL (4.0-10.0)
--- NOTE | 2019-08-26 11:33 | REP ---
CHEST, SINGLE VIEW: There is no evidence of acute infiltrate. No pleural effusion is seen. The heart is normal in size. The mediastinal silhouette is unremarkable. The visualized osseous structures are intact. IMPRESSION: No acute pulmonary disease. Electronically Signed by Elver Hernandez MD 08/28/2019 11:40 A
[2019-08-26] MEDS ORDERED: ESCI20TA PO (11:46)
[2019-08-26] MEDS ORDERED: HYDR-3719 PO (11:48)
[2019-08-26] MEDS ORDERED: NS 1,000 ML IV ONE (12:00)
[2019-08-26] MEDS ORDERED: GI COCKTAIL 50ML BTL(HYOSCYAMINE/MAALOX/LIDOCAINE VISCOUS)(1:3:1) PO ONE (12:00)
[2019-08-26] MEDS ORDERED: KETOROLAC 30 MG/ML VIAL (J1885) IV ONE (12:00)
[2019-08-26 12:06] LABS: BLOOD UREA NITROGEN 9 MG/DL (7-18); CARBON DIOXIDE LEVEL 24 MEQ/L (21-32); CHLORIDE LEVEL 109 MEQ/L (98-107); CK-MB VALUE MASS 1.4 NG/ML (<3.6); CPK CREATINE PHOSPHOKINASE 93 U/L (26-192); CREATININE FOR GFR 0.96 MG/DL (0.55-1.30); GLOMERULAR FILTRATION RATE > 60.0 (>58); GLUCOSE, FASTING 133 MG/DL (70-100); MB/CK RELATIVE INDEX 1.51 (< OR =4); POTASSIUM SERUM 3.6 MEQ/L (3.5-5.1); SODIUM LEVEL 140 MEQ/L (136-145); TROPONIN I < 0.02 NG/ML (< 0.10)
[2019-08-26 12:30] LABS: C REACTIVE PROTEIN QUANTITATIV 0.48 MG/DL (0.00-0.30)
[2019-08-26 12:39] LABS: INR 1.08; PARTIAL THROMBOPLASTIN TIME 26.9 SECONDS (25.0-38.4); PROTHROMBIN TIME 13.7 SECONDS (11.8-14.0)
[2019-08-26 13:01] LABS: ERYTHROCYTE SEDIMENTATION RATE 25 mm/hr (0-20)
[2019-08-26] MEDS ORDERED: ONDANSETRON 4MG/2ML VIAL (J2405) IV ONE (13:30)
[2019-08-26] MEDS ORDERED: ISOVUE-370 76% 100ML VIAL (Q9967) As Ordered ONE (13:38)
[2019-08-26] MEDS: MORPHINE 2 MG/ML 1ML VIAL (J2270) IV PRN ×2 (13:50→16:15)
--- NOTE | 2019-08-26 14:30 | REP ---
CT of the abdomen and pelvis with IV contrast, without bowel contrast: There is a calculus in the gallbladder near the neck, similar to the prior study. There is no biliary duct dilatation. There is no gallbladder distension. The pancreas and spleen are normal size and unremarkable. The adrenals are unremarkable. The kidneys are unremarkable. The abdominal aorta is unremarkable. There is no periaortic adenopathy or mass. There is no bowel distension or obstruction. The mesentery is unremarkable. There is wall thickening of the descending colon and sigmoid colon, nonspecific, but could represent colitis in the appropriate clinical setting. Pelvis: The appendix is unremarkable. There is an enlarged right femoral node measuring 1.7 cm transversely by 1.8 cm AP by 5.0 cm craniocaudad. Previously this node measured 2.1 cm transversely by 2.2 cm AP by 5.5 centimeters cranial caudad. Impression: Gallbladder calculus without evidence of gallbladder distension, gallbladder wall thickening or biliary duct dilatation. This is a change. Wall thickening of the descending colon and sigmoid colon compatible with colitis as an interval change. Enlarged right femoral node that has decreased in size. There is a small fat-containing umbilical hernia, unchanged. Electronically Signed by Elver Vazquez MD 08/26/2019 02:20 P
[2019-08-26 14:56] LABS: ALBUMIN 3.7 GM/DL (3.2-5.2); ALT/SGPT 30 U/L (12-78); BILIRUBIN,DIRECT 0.1 MG/DL (0.0-0.2); BILIRUBIN,TOTAL 0.4 MG/DL (0.2-1.0); LIPASE 114 U/L (73-393)
--- NOTE | 2019-08-26 15:54 | REP ---
CT of the chest with IV contrast, CT pulmonary angiography: Comparison is 10/29/2018. The there are no emboli in the pulmonary trunk or central pulmonary arteries. There are no emboli in the pulmonary lobe or segment branches. There are no infiltrates or pleural effusions. There are no masses or nodules. There is no mediastinal, hilar or axillary lymphadenopathy. The thoracic aorta is unremarkable. Cardiac size is normal. There is no pericardial effusion. The visualized upper abdomen there is a 1.5 cm calculus in the gallbladder near the neck. There is no biliary duct dilatation. Impression: Gallbladder calculus. No pulmonary emboli. No infiltrates, effusions, masses, or adenopathy. Electronically Signed by Elver Vazquez MD 08/26/2019 02:08 P
[2019-08-26] MEDS ORDERED: ONDANSETRON 4 MG ORAL DISINTEGRATING TAB (Q0162 PER 1MG) PO ONE (16:15)
[2019-08-26] MEDS ORDERED: CIPROFLOXACIN 500 MG TAB PO ONE (16:15)
[2019-08-26] MEDS ORDERED: metroNIDAZOLE (FLAGYL) 500 MG TAB PO ONE (16:15)
[2019-08-26 16:53] LABS: CK-MB VALUE MASS 1.4 NG/ML (<3.6); CPK CREATINE PHOSPHOKINASE 89 U/L (26-192); MB/CK RELATIVE INDEX 1.57 (< OR =4); TROPONIN I < 0.02 NG/ML (< 0.10)
[2019-08-26] MEDS ORDERED: TRUL3TAB PO (17:35)
[2019-08-26] MEDS ORDERED: TIZA4TAB4 PO ×2 (17:35)
[2019-08-26] MEDS ORDERED: CETI-14 PO (17:35)
[2019-08-26] MEDS ORDERED: BENA25CA4 PO (17:35)
[2019-08-26] MEDS ORDERED: ACETAMINOPHEN TAB 650MG DOSE (2X325MG) PO PRN (17:45)
[2019-08-26] MEDS: NS 1,000 ML IV SCH (17:45)
--- NOTE | 2019-08-26 17:56 | HPEPDOC ---
General Date of Admission 08/26/19 Date of Service: Aug 26, 2019 Chief Complaint The patient is a 44-year-old female admitted with a reason for visit of Chest Tightness. Source: Patient Exam Limitations: No limitations Timing/Duration: Other (since this morning) Severity: Moderate Associated Symptoms: Chest Pain, Nausea, Vomiting, Other (, abdominal pain) History of Present Illness This is a 44 years old, obese, white female with past medical history of hypertension, hysterectomy secondary to abnormal uterine bleed, hypothyroidism, GERD, hyperlipidemia, depression, presented with chief complaints of left-sided chest pain which is sharp in nature, persistent, radiating to her left arm and back associated with nausea, vomiting and abdominal pain and headache. Patient not resolving with any medication and not exacerbated by any position are our intake of food . According to patient. Epigastric pain. This also sharp but localized, nonradiating, associated with nausea, vomiting, not associated with food, not relieved with any medication and also complaining of a left lower laron drant pain on palpation. The diarrhea, fever, shortness of breath or syncope. Home Medications Scheduled Amlodipine Besylate (Amlodipine Besylate) 10 Mg Tab, 10 MG PO DAILY, (Reported) Aspirin (Aspir 81) 81 Mg Tab, 81 MG PO DAILY, (Reported) Cetirizine HCl (Cetirizine HCl) 10 Mg Tablet, 10 MG PO DAILY, (Reported) Cyanocobalamin (Vitamin B-12) (Vitamin B-12) 1,000 Mcg Tab, 500 MCG SL DAILY Diphenhydramine HCl (Benadryl) 25 Mg Capsule, 25 MG PO QHS, (Reported) Escitalopram Oxalate (Escitalopram Oxalate) 20 Mg Tablet, 20 MG PO DAILY, (Reported) Fenofibrate (Fenofibrate) 160 Mg Tab, 160 MG PO DAILY, (Reported) Folic Acid (Folic Acid) 1 Mg Tab, 1 MG PO DAILY, (Reported) Levothyroxine Sodium (Levothyroxine Sodium) 25 Mcg Tab, 25 MG PO DAILY, (Reported) Pantoprazole Sodium (Pantoprazole Sodium) 40 Mg Tab, 40 MG PO DAILY, (Reported) Pyridoxine HCl (Vitamin B6) (Vitamin B-6) 100 Mg Tab, 500 MG PO DAILY, (Reported) Tizanidine HCl (Tizanidine HCl) 4 Mg Tablet, 4 MG PO QHS, (Reported) Venlafaxine HCl (Venlafaxine HCl ER) 150 Mg Cap, 150 MG PO DAILY, (Reported) Scheduled PRN Hydrocodone/Acetaminophen (Hydrocodone-Acetamin 10-325 mg) 1 Each Tablet, 1 TAB PO BID PRN for PAIN, (Reported) Plecanatide (Trulance) 3 Mg Tablet, 3 MG PO DAILY PRN for CONSTIPATION, (Reported) Tizanidine HCl (Tizanidine HCl) 4 Mg Tablet, 4 MG PO BID PRN for MUSCLE SPASMS, (Reported) Allergies Coded Allergies: No Known Allergies (Unverified , 07/11/17) Past Medical History Medical History hypertension, hysterectomy secondary to abnormal uterine bleed, hypothyroidism, GERD, hyperlipidemia, depression, Surgical History Hysterectomy,c_section,left foot sx Family History Significant Family History: No pertinent family hx Social History * Smoker: Denies Alcohol: Denies Drugs: denies A-FIB/CHADSVASC A-FIB History Current/History of A-Fib/PAF?: No Review of Systems Constitutional: Denies: Chills, Fever, Malaise, Night Sweats, Weakness, Fatigue, Weight Loss, Lethargy, Other Eyes: Denies: Pain, Vision change, Conjunctivae inflammation, Eyelid inflammation, Redness, Other ENT: Denies: Head Aches, Ear Pain, Dysphagia, Sinus Congestion, Post Nasal Drip, Sore Throat, Epistaxis, Other Symptoms Skin: Denies: Rash, Lesions, Jaundice, Bruising, Itching, Dry, Breakdown, Nail Changes, Other Cardiovascular: Reports: Chest Pain Gastrointestinal: Reports: Nausea, Vomiting, Abdominal Pain Hematologic: Denies: Bruising, Bleeding Excessively, Petecchia, Purpura, E nlarged Lymph Nodes, Other Hematologic Endocrine: Denies: Polydipsia, Polyphagia, Polyuria, Heat Intolerance, Cold Intolerance, Other Endocrine Sx Musculoskeletal: Denies: Neck Pain, Back Pain, Shoulder Pain, Arm Pain, Hand Pain, Leg Pain, Foot Pain, Joint Pain, Muscle Pain, Spasms, Other Symptoms Neurological: Denies: Weakness, Numbness, Incoordination, Change in speech, Confusion, Seizures, Other Symptoms Physical Examination General Exam: Positive: Alert, Cooperative Eye Exam: Positive: PERRLA, Conjunctiva & lids normal ENT Exam: Positive: Atraumatic, Mucous membr. moist/pink Neck Exam: Positive: Supple Chest Exam: Positive: Clear to auscultation, Normal air movement Heart Exam: Positive: Rate Normal, Normal S1, Normal S2 Abdomen Exam: Positive: Normal bowel sounds, Tenderness (. Positive tenderness at the epigastric area on deep palpation. No rebound tenderness. Also tenderness positive in left lower quadrant on deep palpation. Again, no rebound tenderness, no organomegaly) Extremity Exam: Positive: Normal pulses Skin Exam: Positive: Nl turgor and temperature Neuro Exam: Positive: Sensation Intact, Cranial Nerves 3-12 NL Psych Exam: Positive: Mental status NL, Mood NL, Oriented x 3 Vital Signs Vital Signs Date Time Temp Pulse Resp B/P (MAP) Pulse Ox O2 Delivery O2 Flow Rate FiO2 08/26/19 16:15 18 08/26/19 14:49 73 97 08/26/19 13:32 139/92 (108) 08/26/19 11:45 Room Air 08/26/19 10:50 98.5 Laboratory Data Labs 24H Laboratory Tests 2 08/26/19 11:10: Prothrombin Time 13.7, Prothromb Time International Ratio 1.08, Activated Partial Thromboplast Time 26.9 08/26/19 11:20: Immature Granulocyte % (Auto) 0.2, Neutrophils (%) (Auto) 59.1, Lymphocytes (%) (Auto) 29.6, Monocytes (%) (Auto) 7.2H, Eosinophils (%) (Auto) 3.3H, Basophils (%) (Auto) 0.6, Neutrophils # (Auto) 3.0, Lymphocytes # (Auto) 1.5, Monocytes # (Auto) 0.4, Eosinophils # (Auto) 0.2, Basophils # (Auto) 0.0, Nucleated Red Bloo d Cells % (auto) 0.0, Erythrocyte Sedimentation Rate 25H, Anion Gap 7L, Glomerular Filtration Rate > 60.0, Calcium Level 9.0, Total Bilirubin 0.4, Direct Bilirubin 0.1, Aspartate Amino Transf (AST/SGOT) 19, Alanine Aminotransferase (ALT/SGPT) 30, Alkaline Phosphatase 54, Total Creatine Kinase 93, Creatine Kinase MB 1.4, Creatine Kinase MB Relative Index 1.51, Troponin I < 0.02, C-Reactive Protein, Quantitative 0.48H, Total Protein 7.0, Albumin 3.7, Albumin/Globulin Ratio 1.12, Lipase 114 08/26/19 16:02: Total Creatine Kinase 89, Creatine Kinase MB 1.4, Creatine Kinase MB Relative Index 1.57, Troponin I < 0.02 CBC/BMP Laboratory Tests 08/26/19 11:20 Problems (1) Atypical chest pain Status: Acute Problem Text: Patient chest pain, most likely is atypical in nature. EKG shows no acute ST-T elevations first 2 troponins are negative and chest x-rays in ED Patient also had a previous multiple at ER visit for atypical chest pain in the past but will repeat one more troponin to complete the series. Continue all home medications Admit to medical floor with telemetry Activity as tolerated Diet clear liquid diet Continue home meds No further cardiac workup is needed at this point (2) Intractable vomiting Status: Acute Problem Text: Intractable nausea, vomiting, etiology unknown but patient does have a history in the past , Most likely could be secondary to acute gastritis as patient doesn't have a tenderness on epigastric area on palpation Patient had seen Dr. Jean Baptiste in the past and had a colonoscopy. The knee EGD done and both were essentially normal Will request a consult with again for his recommendations Zofran 4 mg IV every 4 hours when necessary IV fluids normal saline 100cc/hr A.m. labs (3) Acute gastritis Status: Acute Problem Text: Possible acute gastritis on the basis of clinical exam Patient does take aspirin along with her other home meds Will start Protonix 40 mg IV every 12 hours Zofran and 4 mg IV every 4 hours when necessary Morphine sulfate 4 mg IV every 4 hours when necessary Clear liquid diet A.m. labs (4) Colitis Status: Acute Problem Text: Patient does have a tenderness in left lower quadrant. CT of the abdomen and pelvis consistent with possible colitis of the ascending and sigmoid colon but patient is afebrile. CBC count is within normal range, most likely inflammatory in nature, not infectious. clinically monitor patient and call GI consult for further recommendations. (5) HTN (hypertension) Status: Chronic Problem Text: Continue home meds Plan / VTE VTE Prophylaxis Ordered?: Yes LISSETH SOTO MD Aug 26, 2019 17:55
--- NOTE | 2019-08-26 18:53 | ECGEPIP ---
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
[2019-08-26] MEDS: MORPHINE 4 MG/ML 1ML VIAL/SYRINGE (J2270) IV PRN ×2 (19:00→23:12)
[2019-08-26] MEDS: ONDANSETRON 4MG/2ML VIAL (J2405) IV PRN ×2 (19:05→23:12)
[2019-08-26 19:19] LABS: APPEARANCE, URINE HAZY (CLEAR); BACTERIA, URINE AUTO NEGATIVE (NEGATIVE); BILIRUBIN, URINE AUTO NEGATIVE (NEGATIVE); BLOOD, URINE BLOOD NEGATIVE (NEGATIVE); COLOR, URINE YELLOW (YELLOW); GLUCOSE, URINE (UA) AUTO NEGATIVE (NEGATIVE); KETONE, URINE AUTO NEGATIVE (NEGATIVE); LEUKOCYTE ESTERASE, URINE AUTO NEGATIVE (NEGATIVE); NITRITE, URINE AUTO NEGATIVE (NEGATIVE); PROTEIN, URINE AUTO NEGATIVE (NEGATIVE); RBC, URINE AUTO 0 /HPF (0-3); SPECIFIC GRAVITY URINE AUTO 1.005 (1.002-1.035); SQUAMOUS EPITHELIAL CELL UR AU 1 /HPF (0-6); UROBILINOGEN, URINE AUTO 0.2 mg/dL (0.0-2.0); WBC, URINE AUTO 0 /HPF (0-3)
[2019-08-26 19:38] LABS: AMPHETAMINES LEVEL URINE NEGATIVE (NEGATIVE); BARBITURATES URINE NEGATIVE (NEGATIVE); BENZODIAZEPINES URINE NEGATIVE (NEGATIVE); CANNABINOIDS URINE POSITIVE (NEGATIVE); COCAINE METABOLITE URINE NEGATIVE (NEGATIVE); METHADONE URINE NEGATIVE (NEGATIVE); OPIATES URINE NEGATIVE (NEGATIVE); PHENCYCLIDINE URINE NEGATIVE (NEGATIVE)
[2019-08-26 22:06] VITALS: BP 131/73
[2019-08-26] MEDS: HEPARIN SOD (PORCINE) 5000 UNITS/ML VIAL (J1644 PER 1000UNITS) SC SCH (22:56)
[2019-08-26] MEDS: PANTOPRAZOLE 40MG INJ (PROTONIX) (C9113) IV SCH (22:57)
[2019-08-27] MEDS ORDERED: diphenhydrAMINE 25 MG CAP PO ONE (02:00)
[2019-08-27] MEDS: MORPHINE 4 MG/ML 1ML VIAL/SYRINGE (J2270) IV PRN ×2 (03:23→10:00)
[2019-08-27] MEDS: ONDANSETRON 4MG/2ML VIAL (J2405) IV PRN ×4 (03:23→22:54)
[2019-08-27] MEDS: NS 1,000 ML IV SCH ×3 (05:20→17:15)
[2019-08-27 06:00] VITALS: BP 119/64
[2019-08-27 06:06] LABS: HEMATOCRIT 40.2 % (36.0-47.0); HEMOGLOBIN 12.4 g/dl (12.0-15.5); MEAN CORPUSCULAR HEMOGLOBIN 29.2 pg (27.0-33.0); MEAN CORPUSCULAR HGB CONC 30.8 g/dl (32.0-36.5); MEAN CORPUSCULAR VOLUME 94.8 fl (80.0-96.0); PLATELET COUNT, AUTOMATED 318 10^3/uL (150-450); RED BLOOD COUNT 4.24 10^6/uL (4.00-5.40); WHITE BLOOD COUNT 7.9 10^3/uL (4.0-10.0)
[2019-08-27 06:27] LABS: ALBUMIN 3.7 GM/DL (3.2-5.2); ALT/SGPT 29 U/L (12-78); BILIRUBIN,TOTAL 0.4 MG/DL (0.2-1.0); BLOOD UREA NITROGEN 5 MG/DL (7-18); CALCIUM LEVEL 7.7 MG/DL (8.5-10.1); CARBON DIOXIDE LEVEL 32 MEQ/L (21-32); CHLORIDE LEVEL 107 MEQ/L (98-107); GLOMERULAR FILTRATION RATE > 60.0 (>58); GLUCOSE, FASTING 99 MG/DL (70-100); POTASSIUM SERUM 3.3 MEQ/L (3.5-5.1); SODIUM LEVEL 141 MEQ/L (136-145); TOTAL PROTEIN 7.2 GM/DL (6.4-8.2)
--- NOTE | 2019-08-27 07:50 | ECGEPIP ---
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
[2019-08-27] MEDS ORDERED: POTASSIUM CHLORIDE 10 MEQ SR TABLET PO ONE (08:00)
[2019-08-27] MEDS: PANTOPRAZOLE 40MG INJ (PROTONIX) (C9113) IV SCH ×2 (08:32→22:54)
[2019-08-27] MEDS: KCL 10MEQ/100ML SWI (KRUN) 10 MEQ in IV 1 EA IV SCH ×2 (08:32→09:58)
[2019-08-27] MEDS: HEPARIN SOD (PORCINE) 5000 UNITS/ML VIAL (J1644 PER 1000UNITS) SC SCH ×2 (08:32→22:54)
[2019-08-27] MEDS ORDERED: PERCOCET 5MG/325MG TAB PO PRN (11:30)
--- NOTE | 2019-08-27 11:35 | IPNPDOC ---
Subjective Date Seen The patient was seen on 08/27/19. Subjective Chief Complaint/HPI Meggan is still complaining of abdominal pain. Tylenol does not help and she is still has a persistent nausea even though vomiting has somewhat resolved General: Denies: ROS Unobtainable, Chills, Night Sweats, Fatigue, Malaise, Normal Appetite, Other Symptoms Constitutional: Denies: Chills, Fever, Malaise, Night Sweats, Weakness, Fatigue, Weight Loss, Lethargy, Other Pulmonary: Denies: Dyspnea, Cough, Pleuritic Chest Pain, Other Symptoms Cardiovascular: Denies: Chest Pain, Palpitations, Orthopnea, Paroxysmal Noc. Dyspnea, Edema, Lt Headedness, Other Symptoms Gastrointestinal: Denies: Nausea, Vomiting, Abdominal Pain, Diarrhea, Constipation, Melena, Hematochezia, Other Symptoms Endocrine: Denies: Polydipsia, Polyphagia, Polyuria, Heat Intolerance, Cold Intolerance, Other Endocrine Sx Musculoskeletal: Denies: Neck Pain, Back Pain, Shoulder Pain, Arm Pain, Hand Pain, Leg Pain, Foot Pain, Joint Pain, Muscle Pain, Spasms, Other Symptoms Neurological: Denies: Weakness, Numbness, Incoordination, Change in speech, Confusion, Seizures, Other Symptoms Objective Physical Examination ENT Exam: Positive: Atraumatic, Mucous membr. moist/pink Neck Exam: Positive: Supple Chest Exam: Positive: Clear to auscultation, Normal air movement Heart Exam: Positive: Rate Normal, Normal S1, Normal S2 Abdomen Exam: Positive: Normal bowel sounds, Tenderness (. Positive tenderness at the epigastric area on deep palpation. No rebound tenderness. Also tenderness positive in left lower quadrant on deep palpation. Again, no rebound tenderness, no organomegaly) Extremity Exam: Positive: Normal pulses Skin Exam: Positive: Nl turgor and temperature Neuro Exam: Positive: Sensation Intact, Cranial Nerves 3-12 NL Assessment /Plan Problems (1) Intractable vomiting Status: Acute Problem Text: Intractable nausea, vomiting Vomiting is improved with Zofran but patient is still complaining of severe nausea and unable to tolerate oral feeding Dr. Pitts's office called and message left with denies for consultation Continue Protonix 40 mg IV every 12 hours Continue Zofran 4 mg IV every 4 hours when necessary Continue morphine sulfate 4 mg IV every 4 hours when necessary Percocet one tablet by mouth every 4 hours when necessary for [id number] pain Percocet 2 tablets by mouth every 4 hours when necessary for severe pain Patient is on clear liquid diet Will await input from a GI for further recommendations (2) Acute gastritis Status: Acute Problem Text: As above (3) HTN (hypertension) Status: Chronic Problem Text: Continue present meds (4) Acute colitis Status: Acute Problem Text: Acute colitis as per CT of the abdomen and pelvis , Most likely inflammatory in nature as there is no evidence of any infection. Patient is afebrile and WBC count is only 7.9 Further recommendations as per GI (5) Hypokalemia Status: Acute Problem Text: Potassium supplement has been added Repeat potassium in a.m. Plan/VTE VTE Prophylaxis Ordered?: Yes VS, I&O, 24H, Fishbone Vital Signs/I&O Vital Signs Date Time Temp Pulse Resp B/P (MAP) Pulse Ox O2 Delivery O2 Flow Rate FiO2 08/27/19 10:10 98.5 81 17 119/64 98 Room Air I&O- Last 24 Hours up to 6 AM 08/27/19 06:00 Intake Total 655 ml Balance 655 ml Laboratory Data 24H LABS Laboratory Tests 2 08/26/19 16:02: Total Creatine Kinase 89, Creatine Kinase MB 1.4, Creatine Kinase MB Relative Index 1.57, Troponin I < 0.02 08/26/19 18:59: Urine Color YELLOW, Urine Appearance HAZY, Urine pH 8.0, Urine Specific [place] 1.005, Urine Protein NEGATIVE, Urine Glucose (Auto)(UA) NEGATIVE, Urine Ketones (Auto) NEGATIVE, Urine Blood NEGATIVE, Urine Nitrite NEGATIVE, Urine Bilirubin NEGATIVE, Urine Urobilinogen 0.2, Urine Leukocyte Esterase (Auto) NEGATIVE, Urine WBC (Auto) 0, Urine RBC (Auto) 0, Urine Hyaline Casts (Auto) 0, Urine Bacteria (Auto) NEGATIVE, Urine Squamous Epithelial Cells 1, Urine Sperm (Auto) , Urine Opiates Screen NEGATIVE, Urine Methadone Screen NEGATIVE, Urine Barbiturates Screen NEGATIVE, Urine Phencyclidine Screen NEGATIVE, Urine Amphetamines Screen NEGATIVE, Urine Benzodiazepines Screen NEGATIVE, Urine Cocaine Metabolite Screen NEGATIVE, Urine Cannabinoids Screen POSITIVEH 08/26/19 22:17: Troponin I < 0.02 08/27/19 05:37: Nucleated Red Blood Cells % (auto) 0.0, Anion Gap 2L, Glomerular Filtration Rate > 60.0, Calcium Level 7.7L, Total Bilirubin 0.4, Aspartate Amino Transf (A ST/SGOT) 16, Alanine Aminotransferase (ALT/SGPT) 29, Alkaline Phosphatase 51, Total Protein 7.2, Albumin 3.7, Albumin/Globulin Ratio 1.06 CBC/BMP Laboratory Tests 08/27/19 05:37 LISSETH SOTO MD Aug 27, 2019 11:35
[2019-08-27 14:00] VITALS: BP 112/60
[2019-08-27] MEDS: PERCOCET 5MG/325MG TAB PO PRN ×2 (14:40→22:56)
--- NOTE | 2019-08-27 16:20 | CR ---
DATE OF CONSULTATION: 08/27/2019 STATUS OF PATIENT: Inpatient. REQUESTING PHYSICIAN: Hospitalist service. REASON FOR CONSULTATION: Intractable nausea, vomiting and chest wall pain. HISTORY OF PRESENT ILLNESS: Mrs. Buckley is a patient known to me. She is a 44-year-old female with a past medical history significant for chronic back pain, history of hypothyroidism, gastroesophageal reflux who presents to the emergency room yesterday with intractable nausea and at least 2-3 retching episodes. She has left-sided chest pain, which radiates to her axilla and her upper left side of the chest. On examination, she was tender diffusely including the upper abdomen and had CT abdomen and pelvis as well as chest CT performed. Her CT chest reveals gallstones. It was negative for pulmonary embolism. There were no infiltrates and no effusions, masses or adenopathy. Her CT abdomen and pelvis revealed gallbladder calculus without any evidence of gallbladder distension, gallbladder wall thickening or biliary ductal dilatation. The descending colon and sigmoid colon were possibly suggestive of a colitis but no other significant abnormalities were seen on the CT scans. Her lab work is unrevealing except for a sedimentation (sed) rate of 25 and a toxicology screen positive for cannabinoids. Since admission to the hospital, the patient received several doses of Zofran which appears to have improved her nausea, although not resolved. She continues to complain of left-sided chest wall and upper abdomen on the left side discomfort. She denies any diarrhea. No loose stools. No bloody stools. She does give a history of loose stools approximately 2-3 weeks ago when she mainly was complaining of loose bowel movement after meals; however, this has resolved since that time. MEDICATIONS AT HOME: Amlodipine, aspirin, vitamin B12, diphenhydramine, Lexapro, fenofibrate, folic acid, levothyroxine, Protonix with as needed dosing of hydrocodone, Trulance. ALLERGIES: No known drug allergies. PAST MEDICAL HISTORY: Hypertension. Hypothyroidism. Gastroesophageal reflux disease. Hyperlipidemia. Depression. SURGICAL HISTORY: (C) section. Esophagogastroduodenoscopy (EGD) and colonoscopy done approximately 1 year ago, unremarkable. SOCIAL HISTORY: Negative for tobacco. Negative for alcohol. Positive for cannabis on an as needed basis. REVIEW OF SYSTEMS: General: Negative for night sweats, weight loss, fevers or chills. Head, eyes, ears, nose and throat: Negative for double vision or vision changes. No sore throat, epistaxis or cough. Heart: Negative for orthopnea, paroxysmal nocturnal dyspnea (PND). Pulmonary: Negative for pleuritic-type chest pain, hemoptysis. Gastrointestinal (GI): As per history of the present illness. Genitourinary (): Negative for hematuria, dysuria. Musculoskeletal: Positive for back pain and neck pain. Temperature 98.5, pulse 81, respiratory rate 17, blood pressure 119/64, pulse oximetry (ox) 98% on room air. General: She is awake, alert, oriented times three, in no acute distress. She is nontoxic in appearance, comfortably in bed. Head, eyes, ears, nose and throat: Is grossly without abnormality. There is no oral thrush. Neck is negative for lymphadenopathy or thyromegaly. Chest is clear to auscultation bilaterally. No rhonchi or wheezes or crackles. Chest wall is tender to palpation over the sternum and chest wall bilaterally. Abdomen is soft, positive bowel sounds. Tender in the upper abdomen to light palpation. No rebound tenderness or masses. Extremities: Negative for edema. Rectal Examination: Deferred as per patient. Neurological Examination: The patient moves all extremities equally and bilaterally. No focal numbness or weakness. Able to ambulate without assistance. LABORATORY: WBC 7.9, hemoglobin 12.4, hematocrit 40.2, platelet count is 318. Sedimentation rate is 25, sodium 141, potassium 3.3, chloride 107, BUN 5, creatinine 0.8, AST 16, ALT 29, alkaline phosphatase 51, albumin 3.7, lipase 114. Toxicology screen is positive for cannabinoids. IMAGING: CT abdomen and pelvis and CT angiogram of chest as stated in history of the present illness. IMPRESSION: 1. Nausea, vomiting, epigastric pain. 2. Chest wall pain/costochondritis. 3. History of gallstones - likely asymptomatic. 4. Abnormal CT scan of abdomen and pelvis showing possible colitis versus spasm. RECOMMENDATIONS: 1. Continue [id number] anti nausea medication. 2. Plan EGD tomorrow, approximately noontime 3. At some point, colonoscopy should probably be entertained as well. However, we will likely set her up as an outpatient (the patient does not have any diarrhea symptoms, and I suspect the finding on the abnormal CT is most likely related to spasm rather than true colitis). 4. Further recommendations depending on finding and progress over the next 24 hours. MTDD
[2019-08-27 22:00] VITALS: BP 114/61
[2019-08-27] MEDS: diphenhydrAMINE 25 MG CAP PO SCH (22:54)
[2019-08-27] MEDS: tiZANidine 4 MG TAB PO SCH (22:54)
[2019-08-27 23:00] VITALS: BP 134/91
[2019-08-28] MEDS: NS 1,000 ML IV SCH ×2 (02:31→10:08)
[2019-08-28 06:00] VITALS: BP 138/87
[2019-08-28] MEDS: LEVOTHYROXINE 25MCG TABLET (0.025MG) PO SCH (06:28)
[2019-08-28 06:30] LABS: BASO % 0.4 % (0.0-1.0); EOS # 0.1 10^3/uL (0.0-0.5); EOS % 3.1 % (0.0-3.0); HEMATOCRIT 35.3 % (36.0-47.0); HEMOGLOBIN 11.3 g/dl (12.0-15.5); LYMPH # 1.7 10^3/uL (1.5-5.0); LYMPH % 37.7 % (24.0-44.0); MEAN CORPUSCULAR HEMOGLOBIN 29.8 pg (27.0-33.0); MEAN CORPUSCULAR VOLUME 93.1 fl (80.0-96.0); MONO # 0.4 10^3/uL (0.0-0.8); MONO % 8.7 % (0.0-5.0); NEUTROPHILS # 2.2 10^3/uL (1.5-8.5); NEUTROPHILS % 49.9 % (36.0-66.0); PLATELET COUNT, AUTOMATED 257 10^3/uL (150-450); RED BLOOD COUNT 3.79 10^6/uL (4.00-5.40); WHITE BLOOD COUNT 4.5 10^3/uL (4.0-10.0)
[2019-08-28 07:02] LABS: ALBUMIN 3.1 GM/DL (3.2-5.2); ALT/SGPT 25 U/L (12-78); BILIRUBIN,TOTAL 0.3 MG/DL (0.2-1.0); BLOOD UREA NITROGEN 3 MG/DL (7-18); CALCIUM LEVEL 7.8 MG/DL (8.5-10.1); CARBON DIOXIDE LEVEL 30 MEQ/L (21-32); CHLORIDE LEVEL 109 MEQ/L (98-107); CREATININE FOR GFR 0.76 MG/DL (0.55-1.30); GLOMERULAR FILTRATION RATE > 60.0 (>58); GLUCOSE, FASTING 95 MG/DL (70-100); POTASSIUM SERUM 3.4 MEQ/L (3.5-5.1); SODIUM LEVEL 140 MEQ/L (136-145); TOTAL PROTEIN 6.2 GM/DL (6.4-8.2)
[2019-08-28] MEDS: HEPARIN SOD (PORCINE) 5000 UNITS/ML VIAL (J1644 PER 1000UNITS) SC SCH ×2 (09:00→21:33)
[2019-08-28] MEDS ORDERED: POTASSIUM CHLORIDE 10 MEQ SR TABLET PO ONE (09:15)
[2019-08-28 09:30] VITALS: BP 138/87
[2019-08-28] MEDS: ONDANSETRON 4MG/2ML VIAL (J2405) IV PRN (09:48)
[2019-08-28] MEDS: PANTOPRAZOLE 40MG INJ (PROTONIX) (C9113) IV SCH ×2 (09:56→21:33)
[2019-08-28] MEDS: PERCOCET 5MG/325MG TAB PO PRN (10:00)
[2019-08-28] MEDS: ESCITALOPRAM OXALATE 10 MG TAB (LEXAPRO) PO SCH (10:01)
[2019-08-28] MEDS: ASPIRIN 81 MG ENTERIC TAB PO SCH (10:01)
[2019-08-28] MEDS: FOLIC ACID 1 MG TAB PO SCH (10:01)
[2019-08-28] MEDS: CETIRIZINE (ZyrTEC) 10 MG TAB PO SCH (10:04)
[2019-08-28] MEDS: amLODIPine 10 MG TAB PO SCH (10:04)
[2019-08-28] MEDS: VENLAFAXINE **XR** 75MG CAPSULE PO SCH (10:05)
--- NOTE | 2019-08-28 11:11 | IPNPDOC ---
Date Seen The patient was seen on 08/28/19. Progress Note SUBJECTIVE: 44-year-old female with past medical history hypertension, gastritis, chronic abdominal pain status post multiple EGDs/colonoscopies was admitted for acute colitis and vomiting. Patient reports that multiple colonoscopies have been negative and she has not been able to establish a di agnosis over the past 20 years, CT abdomen and pelvis during this admission showed acute colitis in the descending and sigmoid colon. Patient does report slight improvement in her symptoms, not having diarrhea at this time, no longer vomiting but having persistent nausea. She has been evaluated by [facility] and scheduled for EGD later today. She denies any shortness of breath, chest pain, does report abdominal pain. 10 point review of system is negative except for above PHYSICAL EXAMINATION: VITAL SIGNS: Please see below. GENERAL: No distress HEENT: Normocephalic, atraumatic, moist mucous membranes NECK: Supple CARDIOVASCULAR EXAMINATION: S1, S2, no murmurs RESPIRATORY EXAMINATION: Clear to auscultation, no wheezing ABDOMINAL EXAMINATION: Soft, mild diffuse tenderness, nondistended, positive bowel sounds EXTREMITIES: Range of motion intact SKIN: No rash NEUROLOGICAL EXAMINATION: Alert and oriented 3, no focal deficits PSYCHIATRIC EXAMINATION: Calm and cooperative LABORATORY DATA, IMAGING STUDIES, MICROBIOLOGY: Please see below. ASSESSMENT AND PLAN: 44-year-old female with past medical history of hypertension, gastritis, chronic abdominal pain status post multiple endoscopies is admitted for acute colitis and vomiting. PROBLEMS: 1. Acute colitis: Unclear etiology, possibly inflammatory, as had multiple colonoscopies in the past, no diagnosis so for, evaluated by gastroenterology, scheduled for EGD later today.. 2. Vomiting: Her history of gastritis, has had EGD in the past, U tox positive for marijuana, patient reports occasional use, no prior history of cyclical vomiting, scheduled for EGD later today. Continue PPI, pain control. 3. Hypertension: Continue Norvasc. 4. Hypothyroidism: Continue levothyroxine DVT prophylaxis: Heparin subcutaneous GI prophylaxis: Protonix VS, I&O, 24H, Fishbone Vital Signs/I&O Vital Signs Date Time Temp Pulse Resp B/P (MAP) Pulse Ox O2 Delivery O2 Flow Rate FiO2 08/28/19 10:04 83 133/90 08/28/19 10:00 15 Room Air 08/28/19 06:00 96.7 93 I&O- Last 24 Hours up to 6 AM 08/28/19 06:00 Intake Total 3650 ml Output Total 800 ml Balance 2850 ml Laboratory Data 24H LABS Laboratory Tests 2 08/28/19 06:17: Immature Granulocyte % (Auto) 0.2, Neutrophils (%) (Auto) 49.9, Lymphocytes (%) (Auto) 37.7, Monocytes (%) (Auto) 8.7H, Eosinophils (%) (Auto) 3.1H, Basophils (%) (Auto) 0.4, Neutrophils # (Auto) 2.2, Lymphocytes # (Auto) 1.7, Monocytes # (Auto) 0.4, Eosinophils # (Auto) 0.1, Basophils # (Auto) 0.0, Nucleated Red Blood Cells % (auto) 0.0, Anion Gap 1L, Glomerular Filtration Rate > 60.0, Calcium Level 7.8L, Total Bilirubin 0.3, Aspartate Amino Transf (AST/SGOT) 16, Alanine Aminotransferase (ALT/SGPT) 25, Alkaline Phosphatase 44L, Total Protein 6.2L, Albumin 3.1L, Albumin/Globulin Ratio 1.00 CBC/BMP Laboratory Tests 08/28/19 06:17 JERROD ANDREA MD Aug 28, 2019 11:11
[2019-08-28] MEDS ORDERED: ONDANSETRON 4MG/2ML VIAL (J2405) IV PRN (11:15)
[2019-08-28 11:30] VITALS: BP 125/72
[2019-08-28] MEDS ORDERED: fentaNYL 100 MCG/2 ML INJECTION (J3010) As Ordered ONE (12:26)
[2019-08-28] MEDS ORDERED: propofoL 500 MG/50 ML VIAL As Ordered ONE (12:26)
[2019-08-28] MEDS ORDERED: LIDOCAINE 2% INJ 100 MG/5 ML SDV (FOR ANES.) As Ordered ONE (12:26)
--- NOTE | 2019-08-28 12:46 | ROOR ---
Patient Name: Swati Buckley Procedure Date: 08/28/2019 12:12 PM Date of : 1975 Age: 44 Room: [facility] Gender: Female Note Status: Finalized Procedure: Upper GI endoscopy Indications: Epigastric abdominal pain, Unexplained chest pain/costochondritis/left chest wall pain. Providers: Timothy LOGAN MD Referring MD: 2. Inpatient 2. Inpatient Requesting Provider: Medicines: Monitored Anesthesia Care Complications: No immediate complications. Procedure: Pre-Anesthesia Assessment: - The heart rate, respiratory rate, oxygen saturations, blood pressure, adequacy of pulmonary ventilation, and response to care were monitored throughout the procedure. The Endoscope was introduced through the mouth, and advanced to the second part of duodenum. The upper GI endoscopy was accomplished without difficulty. The patient tolerated the procedure well. Findings: A few 5 mm sessile polyps were found in the gastric body. The polyp was removed with a cold snare. Resection and retrieval were complete. The exam of the stomach was otherwise normal. The examined esophagus was normal. The examined duodenum was normal. Cause for epigastric pain is not identified on this exam. Impression: - A few gastric polyps. Resected and retrieved. - Normal esophagus. - Normal examined duodenum. - Cause for epigastric pain is not identified on this exam. Recommendation: - Observe patient's clinical course. - Low fat diet. - [facility]. Timothy Logan MD Timothy LOGAN MD 08/28/2019 12:46:09 PM Electronically signed by Timothy LOGAN MD Number of Addenda: 0 Note Initiated On: 08/28/2019 12:12 PM Estimated Blood Loss: Estimated blood loss: none.
[2019-08-28 14:00] VITALS: BP 123/71
[2019-08-28] MEDS: PYRIDOXINE 50 MG TAB PO SCH (15:25)
[2019-08-28] MEDS ORDERED: MIRALAX *UNIT DOSE* 17GM PACKET PO PRN (18:30)
[2019-08-28] MEDS: diphenhydrAMINE 25 MG CAP PO SCH (21:33)
[2019-08-28] MEDS: tiZANidine 4 MG TAB PO SCH (21:33)
[2019-08-28 22:00] VITALS: BP 150/84
[2019-08-29 06:00] VITALS: BP 131/74
[2019-08-29 06:14] LABS: HEMATOCRIT 36.1 % (36.0-47.0); HEMOGLOBIN 11.9 g/dl (12.0-15.5); MEAN CORPUSCULAR HEMOGLOBIN 30.5 pg (27.0-33.0); MEAN CORPUSCULAR VOLUME 92.6 fl (80.0-96.0); PLATELET COUNT, AUTOMATED 290 10^3/uL (150-450); WHITE BLOOD COUNT 5.1 10^3/uL (4.0-10.0)
[2019-08-29] MEDS: LEVOTHYROXINE 25MCG TABLET (0.025MG) PO SCH (06:36)
[2019-08-29 06:44] LABS: ALBUMIN 3.3 GM/DL (3.2-5.2); ALT/SGPT 26 U/L (12-78); BILIRUBIN,TOTAL 0.2 MG/DL (0.2-1.0); BLOOD UREA NITROGEN 8 MG/DL (7-18); CALCIUM LEVEL 8.4 MG/DL (8.5-10.1); CARBON DIOXIDE LEVEL 30 MEQ/L (21-32); CHLORIDE LEVEL 108 MEQ/L (98-107); CREATININE FOR GFR 0.85 MG/DL (0.55-1.30); GLOMERULAR FILTRATION RATE > 60.0 (>58); GLUCOSE, FASTING 106 MG/DL (70-100); MAGNESIUM LEVEL 2.1 MG/DL (1.8-2.4); POTASSIUM SERUM 3.6 MEQ/L (3.5-5.1); SODIUM LEVEL 141 MEQ/L (136-145); TOTAL PROTEIN 6.6 GM/DL (6.4-8.2)
[2019-08-29] MEDS ORDERED: POTASSIUM CHLORIDE 10 MEQ SR TABLET PO ONE (09:00)
[2019-08-29] MEDS: PYRIDOXINE 50 MG TAB PO SCH (09:52)
[2019-08-29] MEDS: PANTOPRAZOLE 40MG INJ (PROTONIX) (C9113) IV SCH (09:52)
[2019-08-29] MEDS: HEPARIN SOD (PORCINE) 5000 UNITS/ML VIAL (J1644 PER 1000UNITS) SC SCH (09:52)
[2019-08-29] MEDS: CETIRIZINE (ZyrTEC) 10 MG TAB PO SCH (09:53)
[2019-08-29] MEDS: ESCITALOPRAM OXALATE 10 MG TAB (LEXAPRO) PO SCH (09:53)
[2019-08-29] MEDS: ASPIRIN 81 MG ENTERIC TAB PO SCH (09:53)
[2019-08-29] MEDS: VENLAFAXINE **XR** 75MG CAPSULE PO SCH (09:53)
[2019-08-29 09:55] VITALS: BP 142/83
[2019-08-29] MEDS: amLODIPine 10 MG TAB PO SCH (09:55)
[2019-08-29] MEDS: FOLIC ACID 1 MG TAB PO SCH (09:55)
--- NOTE | 2019-08-29 10:52 | DS.PDOC ---
Discharge Summary General Date of Admission Aug 27, 2019 at 11:18 Date of Discharge 08/29/19 Discharge Summary PROCEDURES PERFORMED DURING STAY: None. ADMITTING DIAGNOSES: 1. Colitis. DISCHARGE DIAGNOSES: 1. Colitis. COMPLICATIONS/CHIEF COMPLAINT: Atypical Chest Pain Intractable Vomiting. HISTORY OF PRESENT ILLNESS: 44-year-old female with past medical history of hypertension, gastritis, chronic abdominal pain, was admitted for colitis. Patient was evaluated by gastroenterology and underwent EGD yesterday which showed a 5 mm polyp which was removed, otherwise unremarkable and unable to determine the etiology for patient's symptoms. Patient presented with vomiting and diarrhea, resolved upon presentation, has not had any episodes since admission. GI plans on doing colonoscopy in the outpatient setting once colitis improves, patient is aware and agrees with this plan. Patient seen in the [facility], at [facility], without any complaints at this time, clinically and hemodynamically stable for discharge and outpatient follow-up. HOSPITAL COURSE: As above. DISCHARGE MEDICATIONS: Please see below. ALLERGIES: Please see below. PHYSICAL EXAMINATION: VITAL SIGNS: Please see below. GENERAL: No distress HEENT: Normocephalic, atraumatic, moist mucous membranes NECK: Supple CARDIOVASCULAR EXAMINATION: S1, S2, no murmurs RESPIRATORY EXAMINATION: Clear to auscultation, no wheezing ABDOMINAL EXAMINATION: Soft, nontender, nondistended, positive bowel sounds EXTREMITIES: Range of motion intact SKIN: No rash NEUROLOGICAL EXAMINATION: Alert and oriented 3, no focal deficits PSYCHIATRIC EXAMINATION: Calm and cooperative LABORATORY DATA: Please see below. IMAGING: CT abdomen and pelvis showing colitis PROGNOSIS: Fair ACTIVITY: As tolerated. DIET: Regular DISCHARGE PLAN: Follow up with gastroneurology and PCP 1-2 weeks DISPOSITION: Home. DISCHARGE INSTRUCTIONS: 1. As above. DISCHARGE CONDITION: Stable. TIME SPENT ON DISCHARGE: Greater than 34 minutes. Vital Signs/I&Os Vital Signs Date Time Temp Pulse Resp B/P (MAP) Pulse Ox O2 Delivery O2 Flow Rate FiO2 08/29/19 09:55 85 142/83 08/29/19 06:00 96.7 16 96 Room Air I&O- Last 24 Hours up to 6 AM 08/29/19 06:00 Intake Total 3000 ml Output Total 3825 ml Balance -825 ml Laboratory Data Labs 24H Laboratory Tests 2 08/29/19 05:48: Nucleated Red Blood Cells % (auto) 0.0, Anion Gap 3L, Glomerular Filtration Rate > 60.0, Calcium Level 8.4L, Phosphorus Level 3.0, Magnesium Level 2.1, Total Bilirubin 0.2, Aspartate Amino Transf (AST/SGOT) 14, Alanine Aminotransferase (ALT/SGPT) 26, Alkaline Phosphatase 49, Total Protein 6.6, Albumin 3.3, Albumin/Globulin Ratio 1.00 CBC/BMP Laboratory Tests 08/29/19 05:48 Discharge Medications Scheduled Amlodipine Besylate (Amlodipine Besylate) 10 Mg Tab, 10 MG PO DAILY, (Reported) Aspirin (Aspir 81) 81 Mg Tab, 81 MG PO DAILY, (Reported) Cetirizine HCl (Cetirizine HCl) 10 Mg Tablet, 10 MG PO DAILY, (Reported) Cyanocobalamin (Vitamin B-12) (Vitamin B-12) 1,000 Mcg Tab, 500 MCG SL DAILY Diphenhydramine HCl (Benadryl) 25 Mg Capsule, 25 MG PO QHS, (Reported) Escitalopram Oxalate (Escitalopram Oxalate) 20 Mg Tablet, 20 MG PO DAILY, (Reported) Fenofibrate (Fenofibrate) 160 Mg Tab, 160 MG PO DAILY, (Reported) Folic Acid (Folic Acid) 1 Mg Tab, 1 MG PO DAILY, (Reported) Levothyroxine Sodium (Levothyroxine Sodium) 25 Mcg Tab, 25 MCG PO DAILY, (Reported) Pantoprazole Sodium (Pantoprazole Sodium) 40 Mg Tab, 40 MG PO DAILY, (Reported) Pyridoxine HCl (Vitamin B6) (Vitamin B-6) 100 Mg Tab, 500 MG PO DAILY, (Reported) Tizanidine HCl (Tizanidine HCl) 4 Mg Tablet, 4 MG PO QHS, (Reported) Venlafaxine HCl (Venlafaxine HCl ER) 150 Mg Cap, 150 MG PO DAILY, (Reported) Scheduled PRN Hydrocodone/Acetaminophen (Hydrocodone-Acetamin 10-325 mg) 1 Each Tablet, 1 TAB PO BID PRN for PAIN, (Reported) Plecanatide (Trulance) 3 Mg Tablet, 3 MG PO DAILY PRN for CONSTIPATION, (Reported) Tizanidine HCl (Tizanidine HCl) 4 Mg Tablet, 4 MG PO BID PRN for MUSCLE SPASMS, (Reported) Allergies Coded Allergies: No Known Allergies (Unverified , 07/11/17) JERROD ANDREA MD Aug 29, 2019 10:52
== END 2019-08-29 11:47 | disposition home or self-care (01) | DRG 241 ==
LOC: M ED 10:49 → M ED INP 10:50 → ENRESERVTM 21:02 → ENRESERVDT 21:02 → M MSPAV 22:06 → OBSVTOIN 08-27 11:18
PROVIDERS: ADMIT Internal Medicine; ATTEND Internal Medicine
PROC: 0DB68ZX Excision of Stomach, Via Natural or Artificial Opening Endoscopic, Diagnostic (ICD-10-PCS; principal; 2019-08-28 12:00)
DX: K29.00 Acute gastritis without bleeding (principal); I10 Essential (primary) hypertension; K52.9 Noninfective gastroenteritis and colitis, unspecified; K80.20 Calculus of gallbladder without cholecystitis without obstruction; Z79.899 Other long term (current) drug therapy; Z79.82 Long term (current) use of aspirin; E87.6 Hypokalemia; K21.9 Gastro-esophageal reflux disease without esophagitis; E03.9 Hypothyroidism, unspecified; M54.5 Low back pain; E78.5 Hyperlipidemia, unspecified; K31.7 Polyp of stomach and duodenum

== ENCOUNTER → 2019-10-29 | Outpatient (REF) | payer OTHER ==
[~2019-10-29] MED LIST changes: +BENA25CA4 PO; +CETI-14 PO; +ESCI20TA PO; +HYDR-3719 PO; -MONT10TA2 PO; +MONT10TA4 PO; +TIZA4TAB4 PO
[2019-10-29 13:00] LABS: BASO % 0.5 % (0.0-1.0); EOS # 0.1 10^3/uL (0.0-0.5); EOS % 2.1 % (0.0-3.0); HEMATOCRIT 40.2 % (36.0-47.0); LYMPH # 1.7 10^3/uL (1.5-5.0); LYMPH % 26.9 % (24.0-44.0); MEAN CORPUSCULAR HEMOGLOBIN 29.6 pg (27.0-33.0); MEAN CORPUSCULAR HGB CONC 32.3 g/dl (32.0-36.5); MEAN CORPUSCULAR VOLUME 91.6 fl (80.0-96.0); MONO # 0.4 10^3/uL (0.0-0.8); MONO % 6.7 % (0.0-5.0); NEUTROPHILS % 63.6 % (36.0-66.0); PLATELET COUNT, AUTOMATED 329 10^3/uL (150-450); RED BLOOD COUNT 4.39 10^6/uL (4.00-5.40); WHITE BLOOD COUNT 6.3 10^3/uL (4.0-10.0)
[2019-10-29 13:10] LABS: ALBUMIN 3.7 GM/DL (3.2-5.2); ALT/SGPT 25 U/L (12-78); BILIRUBIN,TOTAL 0.6 MG/DL (0.2-1.0); BLOOD UREA NITROGEN 12 MG/DL (7-18); CARBON DIOXIDE LEVEL 24 MEQ/L (21-32); CHLORIDE LEVEL 108 MEQ/L (98-107); CHOLESTEROL LEVEL 211 MG/DL (<200); CHOLESTEROL RISK RATIO 4.395 (<5); CREATININE FOR GFR 0.98 MG/DL (0.55-1.30); GLOMERULAR FILTRATION RATE > 60.0 (>58); GLUCOSE, FASTING 119 MG/DL (70-100); HDL CHOLESTEROL 48 MG/DL (>40); LDL CHOLESTEROL 140 MG/DL (<100); NON-HDL-C 163 MG/DL; POTASSIUM SERUM 3.8 MEQ/L (3.5-5.1); SODIUM LEVEL 141 MEQ/L (136-145); TOTAL PROTEIN 7.5 GM/DL (6.4-8.2); TRIGLYCERIDES LEVEL 117 MG/DL (<150)
[2019-10-29 13:11] LABS: TOTAL 25(OH) VITAMIN D 25.7 NG/ML (30.0-100.0)
[2019-10-29 13:19] LABS: HEMOGLOBIN A1c 5.8 %
== END ==
LOC: M LAB REF 12:19
PROVIDERS: ATTEND Nurse Practitioner Family
DX: I10 Essential (primary) hypertension (principal); Z13.9 Encounter for screening, unspecified; E55.9 Vitamin D deficiency, unspecified; E03.9 Hypothyroidism, unspecified; E78.5 Hyperlipidemia, unspecified

== ENCOUNTER → 2019-11-06 | Outpatient (REF) | payer OTHER | LOC: M LAB REF 18:19 | PROVIDERS: ATTEND Physician Assistant | DX: R35.0 Frequency of micturition (principal); M54.6 Pain in thoracic spine ==

== ENCOUNTER 2019-11-07 00:52 | Emergency (ER) | payer OTHER ==
[~2019-11-07] VITALS: Ht 172.7 cm; Wt 125.9 kg
[2019-11-07] MEDS ORDERED: ONDANSETRON 4MG/2ML VIAL (J2405) IV ONE (01:15)
[2019-11-07] MEDS ORDERED: KETOROLAC 30 MG/ML VIAL (J1885) IV ONE (01:15)
[2019-11-07] MEDS ORDERED: IBUPROFEN 600 MG TAB PO ONE (01:15)
[2019-11-07] MEDS ORDERED: NS 1,000 ML IV ONE (01:15)
[2019-11-07 01:51] LABS: BASO % 0.3 % (0.0-1.0); EOS # 0.2 10^3/uL (0.0-0.5); EOS % 2.6 % (0.0-3.0); HEMATOCRIT 38.4 % (36.0-47.0); HEMOGLOBIN 12.5 g/dl (12.0-15.5); LYMPH # 2.3 10^3/uL (1.5-5.0); MEAN CORPUSCULAR HEMOGLOBIN 30.3 pg (27.0-33.0); MEAN CORPUSCULAR HGB CONC 32.6 g/dl (32.0-36.5); MONO # 0.4 10^3/uL (0.0-0.8); MONO % 6.3 % (0.0-5.0); NEUTROPHILS # 3.7 10^3/uL (1.5-8.5); NEUTROPHILS % 55.5 % (36.0-66.0); PLATELET COUNT, AUTOMATED 336 10^3/uL (150-450); RED BLOOD COUNT 4.13 10^6/uL (4.00-5.40); WHITE BLOOD COUNT 6.7 10^3/uL (4.0-10.0)
[2019-11-07] MEDS ORDERED: ISOVUE-370 76% 100ML VIAL (Q9967) As Ordered ONE (02:06)
--- NOTE | 2019-11-07 02:14 | REPVR ---
PROCEDURE INFORMATION: Exam: US Retroperitoneal Complete, Kidneys and Bladder. Exam date and time: 11/07/2019 2:06 AM Age: 44 years old Clinical indication: Abdominal pain; Flank; Other: Bilateral; Additional info: Bilat CVA tenderness with urinary frequency R/O kidney stone TECHNIQUE: Imaging protocol: Real-time ultrasound of the retroperitoneum with image documentation. Complete exam focused on the kidneys and bladder. COMPARISON: 1. GALLBLADDER US 06/09/2017 7:39 PM 2. Fatty infiltration of the liver. FINDINGS: Liver: Fatty infiltration of the liver. Liver is not fully imaged on this study. Right kidney: Right kidney measures 10.5 cm in length. No right hydronephrosis. No masses. Left kidney: Left kidney measures 10.5 cm in length. No left hydronephrosis. No masses. Bladder: Bladder is partially decompressed. Postvoid volume was not performed. IMPRESSION: 1. Unremarkable kidneys. 2. Fatty infiltration of the liver. Electronically signed by: Alfred Choudhary On 11/07/2019 02:13:44 AM
[2019-11-07 02:24] LABS: ALBUMIN 3.7 GM/DL (3.2-5.2); ALT/SGPT 29 U/L (12-78); BILIRUBIN,DIRECT < 0.1 MG/DL (0.0-0.2); BILIRUBIN,TOTAL 0.3 MG/DL (0.2-1.0); LIPASE 167 U/L (73-393); TOTAL PROTEIN 7.2 GM/DL (6.4-8.2)
[2019-11-07] MEDS ORDERED: POTASSIUM CHLORIDE 10 MEQ SR TABLET PO ONE (02:30)
--- NOTE | 2019-11-07 02:40 | REPVR ---
PROCEDURE INFORMATION: Exam: CT Abdomen And Pelvis With Contrast Exam date and time: 11/07/2019 1:59 AM Age: 44 years old Clinical indication: Abdominal pain; Generalized; Additional info: Abd pain w/ n/v R/O infectious process TECHNIQUE: Imaging protocol: Computed tomography of the abdomen and pelvis with intravenous contrast. Radiation optimization: All CT scans at this facility use at least one of these dose optimization techniques: automated exposure control; mA and/or kV adjustment per patient size (includes targeted exams where dose is matched to clinical indication); or iterative reconstruction. Contrast material: ISO; Contrast volume: 100 ml; Contrast route: AC; COMPARISON: CT ABD/PEL W/IV CONTRAST ONLY 08/26/2019 1:48 PM FINDINGS: Liver: Normal. No mass. Gallbladder and bile ducts: Calcified gallstone in the neck of the gallbladder measuring 13 mm in diameter. No gallbladder wall thickening. No biliary ductal dilatation. Pancreas: Normal. No ductal dilation. Spleen: Normal. No splenomegaly. Adrenals: Normal. No mass. Kidneys and ureters: Normal. No hydronephrosis. Stomach and bowel: Unremarkable. No obstruction. No mucosal thickening. Negative for colonic diverticulitis. Appendix: Appendix is normal. Intraperitoneal space: Unremarkable. No free air. No significant fluid collection. Vasculature: Unremarkable. No abdominal aortic aneurysm. Lymph nodes: Unremarkable. No enlarged lymph nodes. Bladder: Unremarkable as visualized. Reproductive: Status post hysterectomy. Bones/joints: Unremarkable. No acute fracture. Soft tissues: Unremarkable. IMPRESSION: Cholelithiasis. Correlate clinically for possible symptomatic gallstones. Electronically signed by: Alfred Choudhary On 11/07/2019 02:39:59 AM
[2019-11-07] MEDS ORDERED: MORPHINE 4 MG/ML 1ML VIAL/SYRINGE (J2270) IV ONE (03:00)
[2019-11-07 04:30] VITALS: BP 126/88
== END 2019-11-07 04:32 | disposition home or self-care (01) ==
LOC: M ED 00:52
DX: K80.20 Calculus of gallbladder without cholecystitis without obstruction (principal); K76.0 Fatty (change of) liver, not elsewhere classified; R35.0 Frequency of micturition; I10 Essential (primary) hypertension; F12.10 Cannabis abuse, uncomplicated; Z79.82 Long term (current) use of aspirin; Z79.899 Other long term (current) drug therapy
CPT/HCPCS: 74177; 76775; 80047; 80076; 81001; 83690; 85025; 96361; 96374; 96375; 99284; J1885; J2270; J2405; Q9967

== ENCOUNTER 2019-11-30 18:33 | Emergency (ER) | payer OTHER ==
[~2019-11-30] VITALS: Ht 172.7 cm; Wt 124.0 kg
[2019-11-30] MEDS ORDERED: methylPREDNISolone INJ 125 MG/2 ML VIAL (J2930) IM ONE (19:00)
[2019-11-30] MEDS ORDERED: LIDOCAINE 5% (LIDODERM) PATCH TD ONE (19:00)
[2019-11-30] MEDS ORDERED: KETOROLAC 60 MG/2 ML VIAL IM ONE (19:00)
[2019-11-30] MEDS ORDERED: **NOTE PATIENT COMMENT** MISC XX SCH (21:00)
--- NOTE | 2019-11-30 21:30 | REPVR ---
PROCEDURE INFORMATION: Exam: MR Lumbar Spine Without Contrast. Exam date and time: 11/30/2019 8:55 PM Age: 44 years old Clinical indication: Lumbago; Low back pain; Patient HX: PT states HX of herniated bulging discs and recently has been lifting mother in the last 24 hrs and had instant increase pain and changes in bladder control; Additional info: Low back pain with loss of bladder control R/O cauda equina TECHNIQUE: Imaging protocol: Multiplanar magnetic resonance images of the lumbar spine without intravenous contrast. COMPARISON: MRI-Spine, L.S. without con 05/20/2017 12:07 PM FINDINGS: Trace retrolisthesis of L3 on L4 and L4 on L5. Vertebral body heights are preserved. Multilevel disc desiccation. Mild disc space narrowing at L4-L5. There is degenerative endplate signal. No evidence of discitis/osteomyelitis. Conus medullaris terminates at T12. No epidural fluid collection. L1-L2: No significant central or foraminal stenosis. L2-L3: Mild disc bulge and mild bilateral facet joint arthropathy. No significant central or foraminal stenosis. L3-L4: Mild disc bulge and mild bilateral facet joint arthropathy. No significant central or foraminal stenosis. L4-L5: Mild disc bulge eccentric towards the left side with mild bilateral facet joint arthropathy and small right-sided facet joint effusion. No significant central canal stenosis. [id number] left foraminal stenosis. L5-S1: Mild disc bulge with posterior annular tear. Mild bilateral facet joint arthropathy. No significant central or foraminal stenosis. IMPRESSION: 1. No acute abnormality. 2. No significant central canal compromise. 3. [id number] left foraminal stenosis at L4-L5. Electronically signed by: Gray Choudhary On 11/30/2019 21:29:41 PM
[2019-11-30] MEDS ORDERED: MEDR4PAK PO (21:48)
[2019-11-30 21:59] VITALS: BP 129/72
--- NOTE | 2019-12-01 14:59 | ED PDOC ---
Post-Departure Follow-Up chau nixon faxed formal report of mri ls spine for Juan Luis Molina MD December 01, 2019 14:59
[2019-12-09] MEDS ORDERED: LEVO50TA5 PO (08:04)
[2019-12-09] MEDS ORDERED: EQL50TAB2 PO (08:04)
== END 2019-11-30 21:57 | disposition home or self-care (01) ==
LOC: M ED 18:33
DX: M54.5 Low back pain (principal); G89.29 Other chronic pain; M48.061 Spinal stenosis, lumbar region without neurogenic claudication; R32 Unspecified urinary incontinence; I10 Essential (primary) hypertension; E03.9 Hypothyroidism, unspecified; E78.5 Hyperlipidemia, unspecified; K21.9 Gastro-esophageal reflux disease without esophagitis; D68.59 Other primary thrombophilia; F12.10 Cannabis abuse, uncomplicated; Z79.899 Other long term (current) drug therapy; Z79.82 Long term (current) use of aspirin; Z79.891 Long term (current) use of opiate analgesic
CPT/HCPCS: 72148; 96372; 99283; J1885; J2930

== ENCOUNTER → 2019-12-09 | Outpatient (REF) | payer OTHER, MEDICAID ==
[~2019-12-09] MED LIST changes: +EQL50TAB2 PO; +LEVO50TA5 PO; +MEDR4PAK PO
[2019-12-09 17:55] LABS: ALBUMIN 3.6 GM/DL (3.2-5.2); ALT/SGPT 28 U/L (12-78); BILIRUBIN,TOTAL 0.3 MG/DL (0.2-1.0); BLOOD UREA NITROGEN 13 MG/DL (7-18); CALCIUM LEVEL 8.7 MG/DL (8.5-10.1); CARBON DIOXIDE LEVEL 25 MEQ/L (21-32); CHLORIDE LEVEL 110 MEQ/L (98-107); CREATININE FOR GFR 0.98 MG/DL (0.55-1.30); GLOMERULAR FILTRATION RATE > 60.0 (>58); GLUCOSE, FASTING 103 MG/DL (70-100); POTASSIUM SERUM 3.8 MEQ/L (3.5-5.1); SODIUM LEVEL 141 MEQ/L (136-145); TOTAL PROTEIN 6.9 GM/DL (6.4-8.2)
[2019-12-09 17:56] LABS: BASO % 0.5 % (0.0-1.0); EOS # 0.1 10^3/uL (0.0-0.5); EOS % 2.4 % (0.0-3.0); HEMATOCRIT 38.3 % (36.0-47.0); HEMOGLOBIN 12.8 g/dl (12.0-15.5); LYMPH # 2.1 10^3/uL (1.5-5.0); MEAN CORPUSCULAR HEMOGLOBIN 30.7 pg (27.0-33.0); MEAN CORPUSCULAR HGB CONC 33.4 g/dl (32.0-36.5); MEAN CORPUSCULAR VOLUME 91.8 fl (80.0-96.0); MONO # 0.4 10^3/uL (0.0-0.8); MONO % 7.5 % (0.0-5.0); NEUTROPHILS # 2.8 10^3/uL (1.5-8.5); NEUTROPHILS % 50.4 % (36.0-66.0); PLATELET COUNT, AUTOMATED 322 10^3/uL (150-450); RED BLOOD COUNT 4.17 10^6/uL (4.00-5.40); WHITE BLOOD COUNT 5.5 10^3/uL (4.0-10.0)
== END ==
LOC: M LAB REF 16:56
PROVIDERS: ATTEND Physician Assistant
DX: Z01.818 Encounter for other preprocedural examination (principal); K80.20 Calculus of gallbladder without cholecystitis without obstruction

== ENCOUNTER → 2019-12-13 | Outpatient (CLI) | payer OTHER | LOC: M LABSMTC 10:17 | PROVIDERS: ATTEND Anesthesiology | DX: Z01.818 Encounter for other preprocedural examination (principal); Z11.59 Encounter for screening for other viral diseases | CPT/HCPCS: C8903; U0003 ==

== ENCOUNTER 2019-12-16 10:37 | Day surgery (SDC) | payer OTHER ==
[~2019-12-16] VITALS: Ht 172.7 cm; Wt 56.7 kg
[~2019-12-16 10:37] MED LIST changes: +AMPICILLIN SOD/SULBACTAM SOD 3 GM in D5W MINI-BAG PLUS 100 ML IV ONE; +LIDOCAINE 1% MDV 20ML VIAL SQ PRN; +LR 1,000 ML IV ONE
[2019-12-16] MEDS ORDERED: MIDAZOLAM INJ 2MG/2ML VIAL (J2250 PER 1MG) As Ordered ONE (13:11)
[2019-12-16] MEDS ORDERED: SUGAMMADEX SODIUM 500 MG/5 ML VIAL (BRIDION) As Ordered ONE (13:11)
[2019-12-16] MEDS ORDERED: dexameTHASONE 4 MG/ML 1ML VIAL (J1100 PER 1MG) As Ordered ONE (13:11)
[2019-12-16] MEDS ORDERED: ROCURONIUM BROMIDE 50 MG/5 ML VIAL As Ordered ONE (13:11)
[2019-12-16] MEDS ORDERED: propofoL 200 MG/20 ML VIAL As Ordered ONE ×2 (13:11→13:54)
[2019-12-16] MEDS ORDERED: fentaNYL 250 MCG/5 ML INJECTION (J3010) As Ordered ONE (13:11)
[2019-12-16] MEDS ORDERED: LIDOCAINE 2% 100MG/5ML SDV (FOR ANES.) As Ordered ONE (13:11)
[2019-12-16] MEDS ORDERED: BUPIVACAINE HCL 0.25% 30ML VIAL As Ordered ONE (13:22)
[2019-12-16] MEDS ORDERED: LIDOCAINE 1% SDV 30ML VIAL As Ordered ONE (13:22)
[2019-12-16] MEDS ORDERED: ONDANSETRON 4MG/2ML VIAL As Ordered ONE (14:07)
[2019-12-16] MEDS ORDERED: ACETAMINOPHEN 1000MG 100ML IV BTL (OFIRMEV) (J0131 PER 10MG) As Ordered ONE (14:08)
[2019-12-16] MEDS ORDERED: HYDROmorphone HCL 2 MG/ML 1ML VIAL (J1170) As Ordered ONE (14:20)
[2019-12-16] MEDS ORDERED: LABETALOL 100MG/20ML VIAL As Ordered ONE (14:27)
[2019-12-16] MEDS ORDERED: PHENYLephrine HCL 500 MCG/5 ML (100MCG/ML) SYRINGE (J2370) As Ordered ONE (14:44)
[2019-12-16] MEDS ORDERED: LR 1,000 ML IV SCH (15:45)
[2019-12-16] MEDS ORDERED: fentaNYL 100 MCG/2 ML INJECTION (J3010) IV PRN (15:45)
[2019-12-16] MEDS ORDERED: ONDANSETRON 4MG/2ML VIAL IV PRN ×2 (15:45)
[2019-12-16] MEDS ORDERED: HYDROMORPHONE HCL 0.5 MG/ 0.5 ML SYRINGE (J1170 PER 1) IV PRN (15:45)
[2019-12-16] MEDS ORDERED: KETOROLAC 30 MG/ML 1ML VIAL IV PRN (15:45)
[2019-12-16] MEDS ORDERED: PERCOCET 5MG/325MG TAB PO PRN ×2 (15:45)
[2019-12-16] MEDS ORDERED: oxyCODONE 5MG TAB PO PRN (15:45)
[2019-12-16 17:40] VITALS: BP 122/79
--- NOTE | 2019-12-17 05:18 | ROOPDOC ---
[facility] Report Of Operation Report of Operation DATE OF PROCEDURE: 12/16/19 PREPROCEDURE DIAGNOSES: Cholelithiasis, biliary colic. POSTPROCEDURE DIAGNOSES: cholelithiasis. PROCEDURE: Robotic Assisted Laparoscopic Cholecystectomy with use of ICG for cystic duct identification. SURGEON: Sandro Harper MD INTERIOR DESIGN INSTRUCTOR: Vidya Willingham NP ANESTHESIA: General Anesthesia. ESTIMATED BLOOD LOSS: Approximately 10 mL. COMPLICATIONS: none. REMARKS: 44 F with intermittent biliary colic attacks seen at the ER at one time with cholelithiasis. PROCEDURE NOTE: distended but relatively thin walled gb with roughly about 1.5 cm dominant stone free floating. DESCRIPTION OF PROCEDURE: . SANDRO HARPER MD December 17, 2019 05:18
== END 2019-12-16 18:05 | disposition home or self-care (01) ==
LOC: M SDC 10:37
PROVIDERS: ATTEND Surgery
DX: K80.10 Calculus of gallbladder with chronic cholecystitis without obstruction (principal); I10 Essential (primary) hypertension; E78.5 Hyperlipidemia, unspecified; E03.9 Hypothyroidism, unspecified; K21.9 Gastro-esophageal reflux disease without esophagitis; Z87.891 Personal history of nicotine dependence; Z79.899 Other long term (current) drug therapy; Z79.82 Long term (current) use of aspirin; F32.9 Major depressive disorder, single episode, unspecified
CPT/HCPCS: 47563; 88304; J0131; J1100; J1170; J1885; J2250; J2370; J2405; J3010

== ENCOUNTER 2020-01-29 12:19 | Emergency (ER) | payer OTHER ==
[~2020-01-29] VITALS: Ht 172.7 cm; Wt 124.1 kg
[~2020-01-29 12:19] MED LIST changes: -AMPICILLIN SOD/SULBACTAM SOD 3 GM in D5W MINI-BAG PLUS 100 ML IV ONE; -LIDOCAINE 1% MDV 20ML VIAL SQ PRN; -LR 1,000 ML IV ONE
[2020-01-29] MEDS ORDERED: NS 1,000 ML IV ONE (13:00)
[2020-01-29] MEDS ORDERED: ONDANSETRON 4MG/2ML VIAL IV ONE (13:00)
[2020-01-29] MEDS ORDERED: KETOROLAC 30 MG/ML 1ML VIAL As Ordered ONE (13:05)
[2020-01-29] MEDS ORDERED: KETOROLAC 30 MG/ML 1ML VIAL IV ONE (13:15)
[2020-01-29 13:30] LABS: BASO % 0.3 % (0.0-1.0); EOS # 0.2 10^3/uL (0.0-0.5); EOS % 1.7 % (0.0-3.0); HEMATOCRIT 41.2 % (36.0-47.0); HEMOGLOBIN 13.5 g/dl (12.0-15.5); LYMPH % 16.2 % (24.0-44.0); MEAN CORPUSCULAR HEMOGLOBIN 30.8 pg (27.0-33.0); MEAN CORPUSCULAR HGB CONC 32.8 g/dl (32.0-36.5); MEAN CORPUSCULAR VOLUME 93.8 fl (80.0-96.0); MONO # 0.9 10^3/uL (0.0-0.8); MONO % 7.4 % (0.0-5.0); PLATELET COUNT, AUTOMATED 420 10^3/uL (150-450); RED BLOOD COUNT 4.39 10^6/uL (4.00-5.40); WHITE BLOOD COUNT 12.2 10^3/uL (4.0-10.0)
[2020-01-29 13:49] LABS: ALBUMIN 4.1 GM/DL (3.2-5.2); BILIRUBIN,DIRECT 0.1 MG/DL (0.0-0.2); BILIRUBIN,TOTAL 0.8 MG/DL (0.2-1.0); TOTAL PROTEIN 7.9 GM/DL (6.4-8.2)
[2020-01-29] MEDS ORDERED: ISOVUE-370 76% 100ML VIAL As Ordered ONE (14:07)
[2020-01-29] MEDS ORDERED: MORPHINE 4 MG/ML 1ML VIAL/SYRINGE (J2270) IV ONE (14:30)
--- NOTE | 2020-01-29 14:42 | REP ---
CT ABDOMEN PELVIS WITH IV BUT WITHOUT ORAL CONTRAST: HISTORY: Increased pain. Status post cholecystectomy December 16, 2019. CT CONTRAST DOSE: 100 mL of intravenous Isovue 370. CT FINDINGS: Digital preliminary alcoholism worker radiograph demonstrates air and stool in a nondistended colon. There are two loops of air-filled small bowel in the left mid abdomen question ileus. The lung bases are essentially clear on axial CT images. There is moderate diffuse fatty infiltration of the liver. No intrahepatic or extrahepatic biliary ductal dilation is seen. Gallbladder surgically absent. No focal liver lesion is seen. The spleen is unremarkable. Normal adrenal glands are seen. The pancreas shows no abnormality. The kidneys enhance symmetrically and appear morphologically intact. No intrarenal calculus is seen. No hydronephrosis or ureteral calculus is seen. Urinary bladder is unremarkable. The uterus is surgically absent. There are fluid-filled loops of central abdominal small bowel with air-fluid levels question mild ileus. No obstructive lesion is seen. The large bowel is unremarkable. No free air or abnormal fluid collection is seen. The appendix is not well seen. Normal ovaries are apparent. IMPRESSION: Moderate diffuse fatty infiltration of the liver. Post cholecystectomy. Nonspecific fluid filled loops of central abdominal small bowel without obstructive lesion. Otherwise negative. Electronically Signed by Prashant Ely MD 01/29/2020 03:12 P
[2020-01-29 15:58] VITALS: BP 130/81
== END 2020-01-29 16:01 | disposition home or self-care (01) ==
LOC: M ED 12:19
DX: R10.9 Unspecified abdominal pain (principal); K56.7 Ileus, unspecified; K76.0 Fatty (change of) liver, not elsewhere classified; I10 Essential (primary) hypertension; E78.5 Hyperlipidemia, unspecified; E03.9 Hypothyroidism, unspecified; F12.10 Cannabis abuse, uncomplicated; Z79.82 Long term (current) use of aspirin; Z79.899 Other long term (current) drug therapy
CPT/HCPCS: 74177; 80047; 80076; 81001; 83605; 83690; 84702; 85025; 96361; 96374; 96375; 99284; J1885; J2270; J2405; Q9967

== ENCOUNTER 2020-02-24 10:45 | Emergency (ER) | payer OTHER ==
[~2020-02-24 10:45] MED LIST changes: -AMLO10TA5 PO; +AMLO1TAB25 PO; -ASPI81TA85 PO; +ASPI81TA86 PO; +PANT40TA29 PO; -PANT40TA3 PO
[2020-02-24] MEDS ORDERED: ONDANSETRON 4MG/2ML VIAL ONE ×2 (11:22→13:53)
[2020-02-24] MEDS ORDERED: MORPHINE 4 MG/ML 1ML VIAL/SYRINGE (J2270) ONE (11:22)
[2020-02-24] MEDS ORDERED: KETOROLAC 30 MG/ML 1ML VIAL ONE (13:53)
[2020-03-29 13:48] LABS: AMORPHOUS SEDIMENT SMALL (NEGATIVE); APPEARANCE, URINE CLOUDY (CLEAR); BACTERIA, URINE AUTO 1+ (NEGATIVE); BASO % 0.3 % (0.0-1.0); BILIRUBIN, URINE AUTO NEGATIVE (NEGATIVE); BLOOD, URINE BLOOD NEGATIVE (NEGATIVE); COLOR, URINE YELLOW (YELLOW); EOS # 0.1 10^3/uL (0.0-0.5); EOS % 1.8 % (0.0-3.0); GLUCOSE, URINE (UA) AUTO NEGATIVE (NEGATIVE); GRANULAR CAST, URINE AUTO 5 /LPF; HEMOGLOBIN 12.6 g/dl (12.0-15.5); KETONE, URINE AUTO NEGATIVE (NEGATIVE); LEUKOCYTE ESTERASE, URINE AUTO NEGATIVE (NEGATIVE); LYMPH # 1.4 10^3/uL (1.5-5.0); LYMPH % 20.8 % (24.0-44.0); MEAN CORPUSCULAR HEMOGLOBIN 30.6 pg (27.0-33.0); MEAN CORPUSCULAR HGB CONC 33.2 g/dl (32.0-36.5); MEAN CORPUSCULAR VOLUME 92.2 fl (80.0-96.0); MONO # 0.6 10^3/uL (0.0-0.8); MONO % 9.2 % (0.0-5.0); MUCUS, URINE SMALL (NEGATIVE); NEUTROPHILS # 4.5 10^3/uL (1.5-8.5); NEUTROPHILS % 67.7 % (36.0-66.0); NITRITE, URINE AUTO NEGATIVE (NEGATIVE); PLATELET COUNT, AUTOMATED 268 10^3/uL (150-450); PROTEIN, URINE AUTO 2+ mg/dL (NEGATIVE); RBC, URINE AUTO 1 /HPF (0-3); RED BLOOD COUNT 4.12 10^6/uL (4.00-5.40); SQUAMOUS EPITHELIAL CELL UR AU 5 /HPF (0-6); WBC, URINE AUTO 3 /HPF (0-3); WHITE BLOOD COUNT 6.6 10^3/uL (4.0-10.0)
[2020-04-07 15:14] LABS: ALT/SGPT 24 IU/L (0-32); BILIRUBIN,DIRECT 0.2 MG/DL (0.0-0.2); BILIRUBIN,TOTAL 0.7 MG/DL (0.2-1.0); BLOOD UREA NITROGEN 10 MG/DL (7-18); CALCIUM LEVEL 8.8 MG/DL (8.5-10.1); CARBON DIOXIDE LEVEL 28 mmol/L (20-29); CHLORIDE LEVEL 109 MEQ/L (98-107); CREATININE FOR GFR 0.99 MG/DL (0.55-1.30); GLOMERULAR FILTRATION RATE > 60.0 (>58); GLUCOSE, FASTING 102 MG/DL (70-100); POTASSIUM SERUM 3.7 MEQ/L (3.5-5.1); SODIUM LEVEL 144 MEQ/L (136-145); TOTAL PROTEIN 7.1 GM/DL (6.4-8.2)
[2020-04-07 15:15] LABS: ALBUMIN 3.7 GM/DL (3.2-5.2); HCG, SERUM QUALITATIVE NEGATIVE (NEGATIVE)
--- NOTE | 2020-04-17 16:11 | REP ---
CT OF THE ABDOMEN AND PELVIS WITHOUT IV OR ORAL CONTRAST: HISTORY: Abdominal pain and vomiting. COMPARISON: None. FINDINGS: Digital preliminary land surveyor radiograph demonstrates an unremarkable bowel gas pattern. There is diffuse fatty infiltration of the liver. The lung bases are clear on axial CT images. No focal hepatic or splenic lesion is seen. The gallbladder is surgically absent. No abnormality is noted in the pancreas. Normal adrenal glands are seen bilaterally. The spleen is unremarkable in size and homogeneous in texture. The kidneys are morphologically intact. No intrarenal calculus or hydronephrosis is seen. No retroperitoneal mass or adenopathy is seen. A normal appendix is noted. The uterus is surgically absent. No adnexal mass or cyst is observed. The urinary bladder is intact. No abdominal wall defect is seen. No bony destructive lesion is appreciated. IMPRESSION: Diffuse fatty infiltration of the liver. Post cholecystectomy and hysterectomy. Otherwise negative. MTDD
[2020-05-01] MEDS ORDERED: LEXA1TAB PO (13:35)
== END 2020-02-24 15:57 | disposition home or self-care (01) ==
LOC: M ED 10:45
DX: K76.0 Fatty (change of) liver, not elsewhere classified (principal); R10.9 Unspecified abdominal pain; R11.0 Nausea; Z79.899 Other long term (current) drug therapy; Z79.84 Long term (current) use of oral hypoglycemic drugs
CPT/HCPCS: 74176; 80048; 80076; 81001; 84703; 85025; 96361; 96374; 96375; 96376; 99283; J1885; J2270; J2405

== ENCOUNTER → 2020-05-03 | Outpatient (CLI) | payer OTHER ==
[~2020-05-03] MED LIST changes: +LEXA1TAB PO
== END ==
LOC: M LABSMTC 10:09
PROVIDERS: ATTEND Anesthesiology
DX: Z01.812 Encounter for preprocedural laboratory examination (principal); Z20.828 Contact with and (suspected) exposure to other viral communicable diseases
CPT/HCPCS: C9803; U0003

== ENCOUNTER 2020-05-08 08:18 | Day surgery (SDC) | payer OTHER ==
[~2020-05-08] VITALS: Ht 172.7 cm; Wt 120.2 kg
[~2020-05-08 08:18] MED LIST changes: +NS 1,000 ML IV ONE
[2020-05-08] MEDS ORDERED: fentaNYL 100 MCG/2 ML INJECTION (J3010) As Ordered ONE (08:52)
--- NOTE | 2020-05-08 09:41 | ROOR ---
Patient Name: Swati Buckley Procedure Date: 05/08/2020 9:20 AM Date of : 1975 Age: 45 Room: [facility] Gender: Female Note Status: Finalized Procedure: Colonoscopy Indications: Abnormal CT of the GI tract, Constipation Providers: Timothy LOGAN MD Referring MD: CARLOS ALBERTO Clayton Requesting Provider: Medicines: Monitored Anesthesia Care Complications: No immediate complications. Procedure: Pre-Anesthesia Assessment: - The heart rate, respiratory rate, oxygen saturations, blood pressure, adequacy of pulmonary ventilation, and response to care were monitored throughout the procedure. The Colonoscope was introduced through the anus and advanced to 5 cm into the ileum. The colonoscopy was performed without difficulty. The patient tolerated the procedure well. The quality of the bowel preparation was adequate and fair. Findings: The perianal and digital rectal examinations were normal. Retroflexion in the right colon was performed. Internal hemorrhoids were found during retroflexion. The hemorrhoids were moderate. The entire examined colon appeared normal on direct and retroflexion views. The terminal ileum appeared normal. Impression: - Preparation of the colon was fair. - Internal hemorrhoids. - The entire examined colon is normal on direct and retroflexion views. - The examined portion of the ileum was normal. - No specimens collected. Recommendation: - Continue present medications. - Return to referring physician as previously scheduled. Timothy Logan MD Timothy LOGAN MD 05/08/2020 9:41:28 AM Electronically signed by Timothy LOGAN MD Number of Addenda: 0 Note Initiated On: 05/08/2020 9:20 AM Estimated Blood Loss: Estimated blood loss: none.
[2020-05-08] MEDS ORDERED: propofoL 500 MG/50 ML VIAL As Ordered ONE (09:44)
[2020-05-08] MEDS ORDERED: LIDOCAINE 2% 100MG/5ML SDV (FOR ANES.) As Ordered ONE (09:44)
[2020-05-08 10:00] VITALS: BP 141/91
== END 2020-05-08 10:09 | disposition home or self-care (01) ==
LOC: M OPP 08:18
PROVIDERS: ATTEND Internal Medicine Gastroenterology
DX: K59.00 Constipation, unspecified (principal); K64.8 Other hemorrhoids; R93.3 Abnormal findings on diagnostic imaging of other parts of digestive tract; Z79.82 Long term (current) use of aspirin; Z79.899 Other long term (current) drug therapy
CPT/HCPCS: 45378; J3010

== ENCOUNTER → 2020-08-27 | Outpatient (REF) | payer OTHER, MEDICAID ==
[~2020-08-27] MED LIST changes: -ESCI20TA PO; +ESCI20TA16 PO; -MONT10TA4 PO; +MONT5TAB2 PO; -NS 1,000 ML IV ONE; +PLEC3TAB PO; -TRUL3TAB PO
[2020-08-27 17:26] LABS: BASO % 0.5 % (0.0-1.0); EOS # 0.1 10^3/uL (0.0-0.5); HEMATOCRIT 40.8 % (36.0-47.0); HEMOGLOBIN 13.7 g/dl (12.0-15.5); LYMPH # 1.7 10^3/uL (1.5-5.0); MEAN CORPUSCULAR HEMOGLOBIN 31.5 pg (27.0-33.0); MEAN CORPUSCULAR HGB CONC 33.6 g/dl (32.0-36.5); MEAN CORPUSCULAR VOLUME 93.8 fl (80.0-96.0); MONO # 0.4 10^3/uL (0.0-0.8); MONO % 7.2 % (0.0-5.0); NEUTROPHILS # 3.9 10^3/uL (1.5-8.5); PLATELET COUNT, AUTOMATED 362 10^3/uL (150-450); RED BLOOD COUNT 4.35 10^6/uL (4.00-5.40); WHITE BLOOD COUNT 6.1 10^3/uL (4.0-10.0)
[2020-08-27 17:37] LABS: ALBUMIN 4.1 GM/DL (3.2-5.2); ALT/SGPT 25 U/L (12-78); BILIRUBIN,TOTAL 0.5 MG/DL (0.2-1.0); BLOOD UREA NITROGEN 12 MG/DL (7-18); CALCIUM LEVEL 9.5 MG/DL (8.5-10.1); CARBON DIOXIDE LEVEL 26 MEQ/L (21-32); CHLORIDE LEVEL 107 MEQ/L (98-107); CHOLESTEROL LEVEL 222 MG/DL (<200); CHOLESTEROL RISK RATIO 3.639 (<5); CREATININE FOR GFR 0.92 MG/DL (0.55-1.30); FERRITIN 22 NG/ML (8-252); GLOMERULAR FILTRATION RATE > 60.0 (>58); GLUCOSE, FASTING 88 MG/DL (70-100); HDL CHOLESTEROL 61 MG/DL (>40); IRON (FE) 86 UG/DL (50-170); LDL CHOLESTEROL 135 MG/DL (<100); NON-HDL-C 161 MG/DL; PERCENT SATURATION 19.3 % (13.2-45.0); POTASSIUM SERUM 4.1 MEQ/L (3.5-5.1); SODIUM LEVEL 140 MEQ/L (136-145); TOTAL IRON BINDING CAPACITY 446 UG/DL (250-450); TOTAL PROTEIN 7.5 GM/DL (6.4-8.2); TRIGLYCERIDES LEVEL 129 MG/DL (<150)
[2020-08-27 20:03] LABS: HEMOGLOBIN A1c 5.2 %
== END ==
LOC: M LAB REF 15:55
PROVIDERS: ATTEND Physician Assistant
DX: D50.9 Iron deficiency anemia, unspecified (principal); Z13.228 Encounter for screening for other metabolic disorders; E78.5 Hyperlipidemia, unspecified; E03.9 Hypothyroidism, unspecified

== ENCOUNTER 2020-11-16 14:28 | Emergency (ER) | payer MEDICAID, OTHER ==
[~2020-11-16] VITALS: Ht 172.7 cm; Wt 127.1 kg
[~2020-11-16 14:28] MED LIST changes: +MONT10TA10 PO; -MONT5TAB2 PO
[2020-11-16] MEDS ORDERED: LORA1TAB4 (14:36)
[2020-11-16] MEDS ORDERED: HYDR-3719 (14:36)
--- NOTE | 2020-11-16 15:04 | REP ---
INDICATION: TRAUMA/PAIN. COMPARISON: None. TECHNIQUE: Axial CT images with multiplanar reformations. FINDINGS: No acute bleed or acute large vessel territorial infarct. Ventricles, cisterns and sulci are within normal limits. No mass effect or midline shift. No abnormal fluid collections. Paranasal sinuses and mastoid air cells are clear IMPRESSION: No acute findings <Electronically signed by Manjit Soliman > 11/16/20 1500
--- NOTE | 2020-11-16 15:06 | REP ---
INDICATION: TRAUMA/PAIN. COMPARISON: None. TECHNIQUE: Axial CT images with multiplanar reformations. FINDINGS: There is straightening of the cervical spine and mild reversal of normal cervical lordosis. No evidence of fracture or jb malalignment. Craniovertebral junction appears unremarkable. No significant canal stenosis. Disc osteophyte complex formation narrows the neural foramen at the C5-6 level on the left with moderate foraminal narrowing. At the remaining levels, no significant foraminal narrowing. IMPRESSION: No acute findings. Degenerative changes as described. <Electronically signed by Manjit Soliman > 11/16/20 [id number]
[2020-11-16] MEDS ORDERED: ONDANSETRON 4MG/2ML VIAL IV ONE (16:40)
[2020-11-16] MEDS ORDERED: KETOROLAC 30 MG/ML 1ML VIAL IV ONE (16:40)
[2020-11-16] MEDS ORDERED: NS 1,000 ML IV ONE (16:40)
[2020-11-16 17:23] LABS: BASO % 0.2 % (0.0-1.0); EOS # 0.1 10^3/uL (0.0-0.5); EOS % 1.2 % (0.0-3.0); HEMATOCRIT 43.3 % (36.0-47.0); HEMOGLOBIN 14.3 g/dl (12.0-15.5); LYMPH # 2.3 10^3/uL (1.5-5.0); LYMPH % 23.4 % (24.0-44.0); MEAN CORPUSCULAR HEMOGLOBIN 31.2 pg (27.0-33.0); MEAN CORPUSCULAR VOLUME 94.5 fl (80.0-96.0); MONO # 0.6 10^3/uL (0.0-0.8); MONO % 6.4 % (2.0-8.0); NEUTROPHILS # 6.7 10^3/uL (1.5-8.5); NEUTROPHILS % 68.4 % (36.0-66.0); PLATELET COUNT, AUTOMATED 404 10^3/uL (150-450); RED BLOOD COUNT 4.58 10^6/uL (4.00-5.40); WHITE BLOOD COUNT 9.9 10^3/uL (4.0-10.0)
[2020-11-16] MEDS ORDERED: ACETAMINOPHEN 500 MG TAB PO ONE (17:45)
[2020-11-16] MEDS ORDERED: diphenhydrAMINE 50MG/ML VIAL (J1200) IV ONE (17:45)
[2020-11-16 17:46] LABS: ALBUMIN 4.3 GM/DL (3.2-5.2); ALT/SGPT 27 U/L (12-78); BILIRUBIN,DIRECT 0.1 MG/DL (0.0-0.2); BILIRUBIN,TOTAL 0.3 MG/DL (0.2-1.0); LIPASE 154 U/L (73-393); TOTAL PROTEIN 7.9 GM/DL (6.4-8.2)
[2020-11-16] MEDS ORDERED: PANTOPRAZOLE 40MG VIAL (C9113 PER 1) IV ONE (17:55)
[2020-11-16] MEDS ORDERED: GI COCKTAIL 50ML BTL(HYOSCYAMINE/MAALOX/LIDOCAINE VISCOUS)(1:3:1) PO ONE (17:55)
[2020-11-16 18:07] LABS: CK-MB VALUE MASS 1.8 NG/ML (<3.6); CPK CREATINE PHOSPHOKINASE 90 U/L (26-192); TROPONIN I < 0.02 NG/ML (< 0.10)
[2020-11-16 19:19] VITALS: BP 136/77
[2020-11-16] MEDS ORDERED: LORazepam 2 MG/ML VIAL IV STA (19:33)
[2020-11-16] MEDS ORDERED: CARA1TAB6 PO (19:50)
[2020-11-16] MEDS ORDERED: REGL10TA6 PO (19:50)
[2020-11-16] MEDS ORDERED: NAPR-837 PO (19:50)
--- NOTE | 2020-11-16 22:37 | ECGEPIP ---
[facility] - ED Test Date: 2020-11-16 Pat Name: ABRAN RAMIREZ Department: Room: - Gender: Female Electronic Publisher: elmo : 1975 Requested By: JUDITH Smith PA-C Order Number: [id number] Reading MD: Timothy Mcdonnell Measurements Intervals Bostic Rate: 79 P: 46 AL: 164 QRS: 35 QRSD: 80 T: 38 QT: 386 QTc: 442 Interpretive Statements Normal sinus rhythm Nonspecific ST-T wave abnormalities subtly more notable than in tracing done Electronically Signed on 11-16-2020 22:36:58 EDT by Timothy Mcdonnell
== END 2020-11-16 20:18 | disposition home or self-care (01) ==
LOC: M ED 14:28
DX: S06.0X0A Concussion without loss of consciousness, initial encounter (principal); R11.2 Nausea with vomiting, unspecified; R10.13 Epigastric pain; W22.8XXA Striking against or struck by other objects, initial encounter; Y92.009 Unspecified place in unspecified non-institutional (private) residence as the place of occurrence of the external cause; Y93.9 Activity, unspecified; Y99.9 Unspecified external cause status; M25.78 Osteophyte, vertebrae; Z79.899 Other long term (current) drug therapy
CPT/HCPCS: 70450; 72125; 80047; 80076; 81001; 82550; 82553; 83690; 85025; 93005; 96361; 96374; 96375; 99284; C9113; J1200; J1885; J2060; J2405

== ENCOUNTER → 2021-04-26 | Outpatient (CLI) | payer OTHER ==
[~2021-04-26] MED LIST changes: +CARA1TAB6 PO; +HYDR-3719; +LORA1TAB4; +NAPR-837 PO; +REGL10TA6 PO
--- NOTE | 2021-04-26 12:30 | REP ---
INDICATION: BREAST MASS RIGHT, FAM HX, HIGH RISK DENSE BREAST. COMPARISON: Multiple TECHNIQUE: Diagnostic bilateral mammography was carried out in the CC and MLO projections using both 2D and 3D modalities and compared to the prior exam. Patient presents with a clinically palpable mass in the right breast upper outer quadrant near the 10:30 position. In addition to the standard views diagnostic digital magnified spot compression views of the right breast were obtained in the CC and MLO projections along with diagnostic ultrasonography. FINDINGS: The breasts are unchanged in size and shape. There are no masses. There is no internal architectural distortion. There are no suspicious microcalcifications. There is no skin thickening or nipple retraction. Diagnostic digital magnified spot-compression views right breast area of interest show no abnormalities. Diagnostic ultrasonography right breast region of interest shows no cystic or solid masses. The Volpara volumetric breast density pattern is b. IMPRESSION: BIRADS/ACR category 1 negative mammogram. There is no mammographic evidence or ultrasonographic evidence of malignant alteration of either breast. This patient's Tyrer-Cuzick lifetime breast cancer risk assessment score is 25.4%. Due to the patient's Tyrer Cuzick score greater than or equal to 20% bilateral breast MRI is warranted. A negative mammogram and a negative ultrasound examination should never curtail biopsy of a clinically palpable mass or clinically suspicious area the breast. This mammogram was interpreted with the aid of an FDA-approved computer-aided detection system. The patient states she had a clinical breast exam in March 2021. The patient letter being requested is M2. RECOMMENDATION: Repeat screening mammography recommended 1 year (for women over 40). Bilateral breast MRI warranted as described above. <Electronically signed by Ti Lind > 04/26/21 [id number]
== END ==
LOC: M WHC 09:52
PROVIDERS: ATTEND Nurse Practitioner Women's Health
DX: R92.2 Inconclusive mammogram (principal); Z91.89 Other specified personal risk factors, not elsewhere classified; Z80.3 Family history of malignant neoplasm of breast
CPT/HCPCS: 76642; 77066; G0279

== ENCOUNTER → 2021-07-19 | Outpatient (CLI) | payer OTHER ==
[~2021-07-19] MED LIST changes: -MONT10TA10 PO; +MONT10TA97 PO; +TIZA10TA PO; -TIZA4TAB4 PO
== END ==
LOC: M WHC 11:37
PROVIDERS: ATTEND Nurse Practitioner Women's Health
DX: R10.32 Left lower quadrant pain (principal); Z90.710 Acquired absence of both cervix and uterus

== ENCOUNTER → 2021-10-07 | Outpatient (CLI) | payer OTHER ==
[~2021-10-07] MED LIST changes: +GASTROGRAFIN SOLUTION 30ML (Q9963) As Ordered ONE; +ISOVUE-370 76% 100ML VIAL As Ordered ONE
== END ==
LOC: M RAD 15:52
PROVIDERS: ATTEND Physician Assistant
DX: K57.92 Diverticulitis of intestine, part unspecified, without perforation or abscess without bleeding (principal); R16.0 Hepatomegaly, not elsewhere classified; K76.0 Fatty (change of) liver, not elsewhere classified; Z90.49 Acquired absence of other specified parts of digestive tract
CPT/HCPCS: 74177; Q9963; Q9967

== ENCOUNTER → 2021-10-08 | Outpatient (CLI) | payer OTHER ==
[~2021-10-08] MED LIST changes: -GASTROGRAFIN SOLUTION 30ML (Q9963) As Ordered ONE; -ISOVUE-370 76% 100ML VIAL As Ordered ONE
== END ==
LOC: M PLALAB 09:38
PROVIDERS: ATTEND Surgery
DX: Z13.71 Encounter for nonprocreative screening for genetic disease carrier status (principal)

== ENCOUNTER → 2022-03-01 | Outpatient (CLI) | payer OTHER ==
[~2022-03-01] MED LIST changes: +E-Z-GAS II EFFERVESCENT PACKET (SODIUM BICARB./CITRIC ACID/SIMETHICONE) As Ordered ONE; +E-Z-HD 98% w/w 340GM SUSP BTL As Ordered ONE; +E-Z-PAQUE 96% w/w SUSP 176GM BTL As Ordered ONE
== END ==
LOC: M RAD 08:47
PROVIDERS: ATTEND Physician Assistant
DX: K21.9 Gastro-esophageal reflux disease without esophagitis (principal); R10.13 Epigastric pain; Z87.11 Personal history of peptic ulcer disease

== ENCOUNTER → 2022-03-23 | Outpatient (CLI) | payer OTHER ==
[~2022-03-23] MED LIST changes: -E-Z-GAS II EFFERVESCENT PACKET (SODIUM BICARB./CITRIC ACID/SIMETHICONE) As Ordered ONE; -E-Z-HD 98% w/w 340GM SUSP BTL As Ordered ONE; -E-Z-PAQUE 96% w/w SUSP 176GM BTL As Ordered ONE
== END ==
LOC: M RAD 12:38
PROVIDERS: ATTEND Nurse Practitioner Women's Health
DX: R92.2 Inconclusive mammogram (principal); Z53.9 Procedure and treatment not carried out, unspecified reason

== ENCOUNTER 2022-04-15 15:01 | Emergency (ER) | payer OTHER ==
[~2022-04-15] VITALS: Ht 172.7 cm; Wt 131.8 kg
[2022-04-15 16:06] LABS: BASO % 0.4 % (0.0-1.0); EOS # 0.3 10^3/uL (0.0-0.5); EOS % 4.3 % (0.0-3.0); HEMATOCRIT 41.9 % (36.0-47.0); HEMOGLOBIN 13.9 g/dl (12.0-15.5); LYMPH # 1.7 10^3/uL (1.5-5.0); LYMPH % 22.3 % (24.0-44.0); MEAN CORPUSCULAR HEMOGLOBIN 31.9 pg (27.0-33.0); MEAN CORPUSCULAR HGB CONC 33.2 g/dl (32.0-36.5); MEAN CORPUSCULAR VOLUME 96.1 fl (80.0-96.0); MONO # 0.5 10^3/uL (0.0-0.8); MONO % 6.7 % (2.0-8.0); NEUTROPHILS % 65.8 % (36.0-66.0); PLATELET COUNT, AUTOMATED 303 10^3/uL (150-450); RED BLOOD COUNT 4.36 10^6/uL (4.00-5.40); WHITE BLOOD COUNT 7.6 10^3/uL (4.0-10.0)
[2022-04-15 16:19] LABS: CK-MB VALUE MASS 2.1 NG/ML (<3.6); MB/CK RELATIVE INDEX 2.44 (< OR =4)
[2022-04-15 16:30] LABS: ALBUMIN 4.1 GM/DL (3.2-5.2); ALT/SGPT 34 U/L (12-78); BILIRUBIN,DIRECT 0.2 MG/DL (0.0-0.2); BILIRUBIN,TOTAL 0.5 MG/DL (0.2-1.0); BLOOD UREA NITROGEN 15 MG/DL (7-18); CALCIUM LEVEL 8.8 MG/DL (8.5-10.1); CARBON DIOXIDE LEVEL 27 MEQ/L (21-32); CHLORIDE LEVEL 106 MEQ/L (98-107); CREATININE FOR GFR 0.81 MG/DL (0.55-1.30); FREE T4 1.14 NG/DL (0.76-1.46); GLOMERULAR FILTRATION RATE > 60.0 (>58); GLUCOSE, FASTING 86 MG/DL (70-100); LIPASE 156 U/L (73-393); POTASSIUM SERUM 3.9 MEQ/L (3.5-5.1); SODIUM LEVEL 139 MEQ/L (136-145); TOTAL PROTEIN 7.2 GM/DL (6.4-8.2)
[2022-04-15 16:33] LABS: INR 0.93; PROTHROMBIN TIME 12.9 SECONDS (12.7-14.5)
[2022-04-15 17:37] LABS: CK-MB VALUE MASS 1.7 NG/ML (<3.6); MB/CK RELATIVE INDEX 2.05 (< OR =4)
[2022-04-15] MEDS ORDERED: ASPIRIN 81 MG CHEW TABLET PO ONE (19:10)
[2022-04-15] MEDS ORDERED: MORPHINE 4 MG/ML 1ML VIAL/SYRINGE IV ONE (19:10)
[2022-04-15] MEDS ORDERED: ISOVUE-370 76% 100ML VIAL As Ordered ONE ×2 (19:10→19:18)
[2022-04-15 21:01] VITALS: BP 129/58
== END 2022-04-15 21:16 | disposition home or self-care (01) ==
LOC: M ED 15:01
DX: R07.9 Chest pain, unspecified (principal); K21.9 Gastro-esophageal reflux disease without esophagitis; F32.9 Major depressive disorder, single episode, unspecified; F41.9 Anxiety disorder, unspecified; Z87.891 Personal history of nicotine dependence; K76.0 Fatty (change of) liver, not elsewhere classified; R16.0 Hepatomegaly, not elsewhere classified
CPT/HCPCS: 71045; 71275; 74177; 80048; 80076; 82550; 82553; 83690; 84439; 84443; 85025; 85610; 85730; 93005; 93041; 94760; 96374; 99284; J2270; Q9967

== ENCOUNTER → 2022-08-23 | Outpatient (REF) | payer OTHER ==
[~2022-08-23] MED LIST changes: -MAGN1.743; +MAGN296S37
== END ==
LOC: M LAB REF 16:27
PROVIDERS: ATTEND Physician Assistant
DX: J02.9 Acute pharyngitis, unspecified (principal)

== ENCOUNTER → 2022-08-24 | Outpatient (CLI) | payer OTHER | LOC: M RAD 15:16 | PROVIDERS: ATTEND Nurse Practitioner Family | DX: M54.16 Radiculopathy, lumbar region (principal) ==

== ENCOUNTER 2022-09-04 11:54 | Emergency (ER) | payer OTHER ==
[~2022-09-04] VITALS: Ht 172.7 cm; Wt 135.1 kg
[2022-09-04 12:34] LABS: BASO % 0.2 % (0.0-1.0); EOS # 0.1 10^3/uL (0.0-0.5); HEMATOCRIT 40.6 % (36.0-47.0); HEMOGLOBIN 13.3 g/dl (12.0-15.5); LYMPH # 1.1 10^3/uL (1.5-5.0); LYMPH % 18.7 % (24.0-44.0); MEAN CORPUSCULAR HEMOGLOBIN 31.4 pg (27.0-33.0); MEAN CORPUSCULAR HGB CONC 32.8 g/dl (32.0-36.5); MEAN CORPUSCULAR VOLUME 95.8 fl (80.0-96.0); MONO # 0.5 10^3/uL (0.0-0.8); MONO % 7.9 % (2.0-8.0); NEUTROPHILS # 4.3 10^3/uL (1.5-8.5); NEUTROPHILS % 70.9 % (36.0-66.0); PLATELET COUNT, AUTOMATED 331 10^3/uL (150-450); RED BLOOD COUNT 4.24 10^6/uL (4.00-5.40); WHITE BLOOD COUNT 6.1 10^3/uL (4.0-10.0)
[2022-09-04 12:54] LABS: LIPASE 31 U/L (12-53)
[2022-09-04 12:57] LABS: ALBUMIN 3.5 G/DL (3.2-5.2); ALKALINE PHOSPHATASE 52 U/L (46-116); ALT/SGPT 33 U/L (7.0-40); AST/SGOT 32 U/L (<34); BILIRUBIN,DIRECT 0.2 MG/DL (<0.4); BILIRUBIN,TOTAL 0.5 MG/DL (0.3-1.2); BLOOD UREA NITROGEN 10 MG/DL (9-23); CALCIUM LEVEL 8.8 MG/DL (8.5-10.1); CARBON DIOXIDE LEVEL 26 MMOL/L (20-31); CHLORIDE LEVEL 106 MMOL/L (98-107); CREATININE FOR GFR 0.85 MG/DL (0.55-1.30); GLOMERULAR FILTRATION RATE > 60.0 (>58); GLUCOSE, FASTING 103 MG/DL (60-100); POTASSIUM SERUM 3.6 MMOL/L (3.5-5.1); SODIUM LEVEL 140 MMOL/L (136-145); TOTAL PROTEIN 6.7 G/DL (5.7-8.2)
[2022-09-04] MEDS ORDERED: NS 1,000 ML IV ONE (16:15)
[2022-09-04] MEDS ORDERED: GI COCKTAIL 50ML BTL(HYOSCYAMINE/MAALOX/LIDOCAINE VISCOUS)(1:3:1) PO ONE (16:15)
[2022-09-04] MEDS ORDERED: ISOVUE-370 76% 100ML VIAL As Ordered ONE (17:08)
[2022-09-04 17:16] LABS: CK-MB VALUE MASS < 1.0 NG/ML (<3.6)
[2022-09-04 17:18] LABS: CPK CREATINE PHOSPHOKINASE 72 U/L (34-145); MB/CK RELATIVE INDEX 1.38 (< OR =4)
[2022-09-04 18:26] LABS: CK-MB VALUE MASS < 1.0 NG/ML (<3.6)
[2022-09-04 18:29] LABS: CPK CREATINE PHOSPHOKINASE 62 U/L (34-145); MB/CK RELATIVE INDEX 1.61 (< OR =4)
[2022-09-04] MEDS ORDERED: KETOROLAC 30 MG/ML 1ML VIAL IV ONE ×2 (18:35→19:25)
[2022-09-04 19:22] LABS: CK-MB VALUE MASS < 1.0 NG/ML (<3.6)
[2022-09-04 19:30] LABS: CPK CREATINE PHOSPHOKINASE 62 U/L (34-145); MB/CK RELATIVE INDEX 1.61 (< OR =4)
[2022-09-04 20:44] VITALS: BP 135/80
== END 2022-09-04 20:52 | disposition home or self-care (01) ==
LOC: M ED 11:54
DX: S39.011A Strain of muscle, fascia and tendon of abdomen, initial encounter (principal); R11.2 Nausea with vomiting, unspecified; K21.9 Gastro-esophageal reflux disease without esophagitis; K57.92 Diverticulitis of intestine, part unspecified, without perforation or abscess without bleeding; E78.5 Hyperlipidemia, unspecified; M54.50 Low back pain, unspecified; F41.9 Anxiety disorder, unspecified; I10 Essential (primary) hypertension; F10.10 Alcohol abuse, uncomplicated; F12.10 Cannabis abuse, uncomplicated; Z87.442 Personal history of urinary calculi; Z87.891 Personal history of nicotine dependence; Z79.82 Long term (current) use of aspirin; Z79.811 Long term (current) use of aromatase inhibitors; Z79.899 Other long term (current) drug therapy
CPT/HCPCS: 71275; 74177; 80048; 80076; 81000; 81015; 82550; 82553; 83605; 83690; 85025; 87486; 87581; 87633; 87798; 93005; 94760; 96361; 96374; 99284; J1885

== ENCOUNTER → 2022-09-05 | Outpatient (REF) | payer OTHER | LOC: M LAB REF 14:30 | PROVIDERS: ATTEND Physician Assistant | DX: R19.7 Diarrhea, unspecified (principal) ==

== ENCOUNTER → 2022-09-15 | Outpatient (REF) | payer OTHER ==
[2022-09-15 16:56] LABS: HEMATOCRIT 43.6 % (36.0-47.0); HEMOGLOBIN 14.1 g/dl (12.0-15.5); MEAN CORPUSCULAR HEMOGLOBIN 31.3 pg (27.0-33.0); MEAN CORPUSCULAR HGB CONC 32.3 g/dl (32.0-36.5); MEAN CORPUSCULAR VOLUME 96.9 fl (80.0-96.0); PLATELET COUNT, AUTOMATED 328 10^3/uL (150-450); WHITE BLOOD COUNT 6.5 10^3/uL (4.0-10.0)
[2022-09-15 16:58] LABS: ALBUMIN 3.5 G/DL (3.2-5.2); ALKALINE PHOSPHATASE 46 U/L (46-116); ALT/SGPT 29 U/L (7.0-40); AST/SGOT 17 U/L (<34); BILIRUBIN,TOTAL 0.4 MG/DL (0.3-1.2); BLOOD UREA NITROGEN 15 MG/DL (9-23); CALCIUM LEVEL 8.9 MG/DL (8.5-10.1); CARBON DIOXIDE LEVEL 27 MMOL/L (20-31); CHLORIDE LEVEL 107 MMOL/L (98-107); CHOLESTEROL LEVEL 178 MG/DL (<200); CHOLESTEROL RISK RATIO 4.12 (<5); CREATININE FOR GFR 0.75 MG/DL (0.55-1.30); GLOMERULAR FILTRATION RATE > 60.0 (>58); GLUCOSE, FASTING 98 MG/DL (60-100); HDL CHOLESTEROL 43.2 MG/DL (>40); NON-HDL-C 135 MG/DL; POTASSIUM SERUM 4.4 MMOL/L (3.5-5.1); SODIUM LEVEL 141 MMOL/L (136-145); TOTAL PROTEIN 6.5 G/DL (5.7-8.2); TRIGLYCERIDES LEVEL 149 MG/DL (<150)
[2022-09-15 17:03] LABS: THYROID STIMULATING HORMONE 2.579 uIU/ML (0.55-4.78)
[2022-09-15 17:04] LABS: TOTAL 25(OH) VITAMIN D 31.5 NG/ML (20.0-100.0)
[2022-09-15 17:11] LABS: HEMOGLOBIN A1c 5.5 % (4.0-6.0)
== END ==
LOC: M LAB REF 16:06
PROVIDERS: ATTEND Physician Assistant
DX: I10 Essential (primary) hypertension (principal); E55.9 Vitamin D deficiency, unspecified; R73.01 Impaired fasting glucose

== ENCOUNTER → 2022-11-10 | Outpatient (CLI) | payer OTHER ==
[2022-11-10 17:08] LABS: BASO % 0.6 % (0.0-1.0); EOS # 0.1 10^3/uL (0.0-0.5); EOS % 2.1 % (0.0-3.0); LYMPH # 1.7 10^3/uL (1.5-5.0); LYMPH % 25.2 % (24.0-44.0); MEAN CORPUSCULAR HEMOGLOBIN 31.3 pg (27.0-33.0); MEAN CORPUSCULAR HGB CONC 32.5 g/dl (32.0-36.5); MEAN CORPUSCULAR VOLUME 96.2 fl (80.0-96.0); MONO # 0.5 10^3/uL (0.0-0.8); NEUTROPHILS # 4.4 10^3/uL (1.5-8.5); NEUTROPHILS % 64.8 % (36.0-66.0); PLATELET COUNT, AUTOMATED 329 10^3/uL (150-450); RED BLOOD COUNT 4.16 10^6/uL (4.00-5.40); WHITE BLOOD COUNT 6.8 10^3/uL (4.0-10.0)
[2022-11-10 17:37] LABS: BLOOD UREA NITROGEN 14 MG/DL (9-23); CALCIUM LEVEL 8.5 MG/DL (8.5-10.1); CARBON DIOXIDE LEVEL 29 MMOL/L (20-31); CHLORIDE LEVEL 108 MMOL/L (98-107); CREATININE FOR GFR 0.79 MG/DL (0.55-1.30); GLOMERULAR FILTRATION RATE > 60.0 (>58); GLUCOSE, FASTING 88 MG/DL (60-100); POTASSIUM SERUM 4.2 MMOL/L (3.5-5.1); SODIUM LEVEL 141 MMOL/L (136-145)
== END ==
LOC: M WUC 14:45
PROVIDERS: ATTEND Physician Assistant
DX: R60.9 Edema, unspecified (principal); L30.9 Dermatitis, unspecified

== ENCOUNTER → 2022-11-29 | Outpatient (CLI) | payer OTHER ==
[~2022-11-29] MED LIST changes: -HYDR-3719; +LORA1TAB23; -LORA1TAB4; +NAPR-885 PO
== END ==
LOC: M SLEEP HO 11:09
PROVIDERS: ATTEND Internal Medicine Pulmonary Disease
DX: G47.33 Obstructive sleep apnea (adult) (pediatric) (principal)

== ENCOUNTER 2022-12-20 12:26 | Day surgery (SDC) | payer OTHER ==
[~2022-12-20] VITALS: Ht 172.7 cm; Wt 132.9 kg
[~2022-12-20 12:26] MED LIST changes: +NS 1,000 ML IV ONE
[2022-12-20] MEDS ORDERED: LIDOCAINE 2% 100MG/5ML SDV (FOR ANES.) As Ordered ONE (14:22)
[2022-12-20] MEDS ORDERED: fentaNYL 100 MCG/2 ML INJECTION As Ordered ONE (14:25)
[2022-12-20] MEDS ORDERED: propofoL 200 MG/20 ML VIAL As Ordered ONE (15:16)
[2022-12-20] MEDS ORDERED: propofoL 500 MG/50 ML VIAL As Ordered ONE (15:19)
[2022-12-20 15:45] VITALS: BP 132/66
== END 2022-12-20 15:55 | disposition home or self-care (01) ==
LOC: M OPP 12:26
PROVIDERS: ATTEND Internal Medicine Gastroenterology
DX: D12.3 Benign neoplasm of transverse colon (principal); K64.8 Other hemorrhoids; K62.89 Other specified diseases of anus and rectum; K58.0 Irritable bowel syndrome with diarrhea; K31.89 Other diseases of stomach and duodenum; Z79.890 Hormone replacement therapy; Z79.891 Long term (current) use of opiate analgesic; Z79.899 Other long term (current) drug therapy
CPT/HCPCS: 43239; 45380; 45385; 88305; J3010

== ENCOUNTER → 2023-04-17 | Outpatient (CLI) | payer OTHER ==
[~2023-04-17] MED LIST changes: -NS 1,000 ML IV ONE
[2023-04-17 14:10] LABS: ALBUMIN 3.6 G/DL (3.2-5.2); ALKALINE PHOSPHATASE 65 U/L (46-116); ALT/SGPT 23 U/L (7.0-40); AST/SGOT 10 U/L (<34); BILIRUBIN,TOTAL 0.6 MG/DL (0.3-1.2); BLOOD UREA NITROGEN 12 MG/DL (9-23); CALCIUM LEVEL 8.8 MG/DL (8.5-10.1); CARBON DIOXIDE LEVEL 30 MMOL/L (20-31); CHLORIDE LEVEL 106 MMOL/L (98-107); CHOLESTEROL LEVEL 215 MG/DL (<200); CHOLESTEROL RISK RATIO 4.31 (<5); CREATININE FOR GFR 0.71 MG/DL (0.55-1.30); GLOMERULAR FILTRATION RATE > 60.0 (>58); GLUCOSE, FASTING 119 MG/DL (60-100); HDL CHOLESTEROL 49.8 MG/DL (>40); LDL CHOLESTEROL 113.6 MG/DL (<100); NON-HDL-C 165.2 MG/DL; POTASSIUM SERUM 3.9 MMOL/L (3.5-5.1); SODIUM LEVEL 142 MMOL/L (136-145); TOTAL PROTEIN 6.8 G/DL (5.7-8.2); TRIGLYCERIDES LEVEL 258 MG/DL (<150)
[2023-04-17 14:46] LABS: HEPATITIS C VIRUS ABY INDEX 0.13 INDEX (<0.8)
== END ==
LOC: M WUC 10:00
PROVIDERS: ATTEND Physician Assistant
DX: Z11.59 Encounter for screening for other viral diseases (principal); I10 Essential (primary) hypertension; E78.5 Hyperlipidemia, unspecified

== ENCOUNTER 2023-05-07 21:14 | Emergency (ER) | payer OTHER ==
[~2023-05-07] VITALS: Ht 172.7 cm; Wt 132.3 kg
[2023-05-07 21:16] VITALS: BP 159/93; TEMP 98.1; O2SAT 95
[2023-05-07 22:10] LABS: BASO % 0.5 % (0.0-1.0); EOS # 0.3 10^3/uL (0.0-0.5); EOS % 4.4 % (0.0-3.0); HEMATOCRIT 41.1 % (36.0-47.0); HEMOGLOBIN 14.3 g/dl (12.0-15.5); LYMPH # 2.7 10^3/uL (1.5-5.0); LYMPH % 34.6 % (24.0-44.0); MEAN CORPUSCULAR HEMOGLOBIN 31.8 pg (27.0-33.0); MEAN CORPUSCULAR HGB CONC 34.8 g/dl (32.0-36.5); MEAN CORPUSCULAR VOLUME 91.5 fl (80.0-96.0); MONO # 0.7 10^3/uL (0.0-0.8); MONO % 8.4 % (2.0-8.0); NEUTROPHILS % 51.8 % (36.0-66.0); PLATELET COUNT, AUTOMATED 348 10^3/uL (150-450); RED BLOOD COUNT 4.49 10^6/uL (4.00-5.40); WHITE BLOOD COUNT 7.8 10^3/uL (4.0-10.0)
[2023-05-07 22:25] LABS: LIPASE 48 U/L (12-53)
[2023-05-07 22:30] LABS: ALBUMIN 3.9 G/DL (3.2-5.2); ALKALINE PHOSPHATASE 63 U/L (46-116); ALT/SGPT 24 U/L (7.0-40); AST/SGOT 17 U/L (<34); BILIRUBIN,DIRECT 0.2 MG/DL (<0.4); BILIRUBIN,TOTAL 0.5 MG/DL (0.3-1.2); BLOOD UREA NITROGEN 13 MG/DL (9-23); CARBON DIOXIDE LEVEL 24 MMOL/L (20-31); CHLORIDE LEVEL 107 MMOL/L (98-107); CREATININE FOR GFR 0.84 MG/DL (0.55-1.30); GLOMERULAR FILTRATION RATE > 60.0 (>58); GLUCOSE, FASTING 95 MG/DL (60-100); SODIUM LEVEL 139 MMOL/L (136-145); TOTAL PROTEIN 6.9 G/DL (5.7-8.2)
[2023-05-07] MEDS ORDERED: NS 1,000 ML IV ONE (22:40)
[2023-05-07] MEDS ORDERED: ISOVUE-370 76% 100ML VIAL As Ordered ONE (23:00)
[2023-05-07] MEDS ORDERED: ONDANSETRON 4MG 2ML VIAL IV ONE (23:00)
[2023-05-07] MEDS ORDERED: KETOROLAC 30 MG/ML 1ML VIAL IV ONE (23:00)
[2023-05-08] MEDS ORDERED: MORPHINE 4 MG/ML 1ML VIAL IV ONE (00:30)
[2023-05-08] MEDS ORDERED: VALI5TAB PO (01:16)
== END 2023-05-08 01:53 | disposition home or self-care (01) ==
LOC: M ED 21:14
DX: R10.9 Unspecified abdominal pain (principal); I10 Essential (primary) hypertension; E03.9 Hypothyroidism, unspecified; K21.9 Gastro-esophageal reflux disease without esophagitis; E78.5 Hyperlipidemia, unspecified; Z87.891 Personal history of nicotine dependence; Z79.899 Other long term (current) drug therapy
CPT/HCPCS: 74177; 80048; 80076; 81001; 83690; 85025; 96374; 96375; 99283; J1885; J2405; Q9967

== ENCOUNTER 2023-11-10 23:54 | Emergency (ER) | payer OTHER, SELFPAY ==
[~2023-11-10] VITALS: Ht 172.7 cm; Wt 131.4 kg
[~2023-11-10 23:54] MED LIST changes: +VALI5TAB PO
[2023-11-11 00:34] LABS: BASO % 0.6 % (0.0-1.0); EOS # 0.2 10^3/uL (0.0-0.5); EOS % 3.1 % (0.0-3.0); HEMATOCRIT 41.8 % (36.0-47.0); HEMOGLOBIN 13.6 g/dl (12.0-15.5); LYMPH # 2.6 10^3/uL (1.5-5.0); LYMPH % 35.6 % (24.0-44.0); MEAN CORPUSCULAR HEMOGLOBIN 31.3 pg (27.0-33.0); MEAN CORPUSCULAR HGB CONC 32.5 g/dl (32.0-36.5); MEAN CORPUSCULAR VOLUME 96.3 fl (80.0-96.0); MONO # 0.5 10^3/uL (0.0-0.8); MONO % 7.5 % (2.0-8.0); NEUTROPHILS # 3.8 10^3/uL (1.5-8.5); NEUTROPHILS % 52.9 % (36.0-66.0); PLATELET COUNT, AUTOMATED 313 10^3/uL (150-450); RED BLOOD COUNT 4.34 10^6/uL (4.00-5.40); WHITE BLOOD COUNT 7.2 10^3/uL (4.0-10.0)
[2023-11-11 00:45] LABS: INR 0.95; PROTHROMBIN TIME 12.4 SECONDS (12.5-14.5)
[2023-11-11 00:57] LABS: CK-MB VALUE MASS 2.3 NG/ML (<3.6)
[2023-11-11 00:58] LABS: LIPASE 37 U/L (12-53)
[2023-11-11 01:00] LABS: ALBUMIN 3.8 G/DL (3.2-5.2); ALKALINE PHOSPHATASE 62 U/L (46-116); ALT/SGPT 29 U/L (7.0-40); AST/SGOT 14 U/L (<34); BILIRUBIN,DIRECT < 0.1 MG/DL (<0.4); BILIRUBIN,TOTAL 0.3 MG/DL (0.3-1.2); BLOOD UREA NITROGEN 11 MG/DL (9-23); CALCIUM LEVEL 9.2 MG/DL (8.5-10.1); CARBON DIOXIDE LEVEL 24 MMOL/L (20-31); CHLORIDE LEVEL 110 MMOL/L (98-107); CPK CREATINE PHOSPHOKINASE 102 U/L (34-145); CREATININE FOR GFR 0.74 MG/DL (0.55-1.30); GLOMERULAR FILTRATION RATE > 60.0 (>58); GLUCOSE, FASTING 146 MG/DL (60-100); MB/CK RELATIVE INDEX 2.25 (< OR =4); POTASSIUM SERUM 4.6 MMOL/L (3.5-5.1); SODIUM LEVEL 144 MMOL/L (136-145); TOTAL PROTEIN 6.9 G/DL (5.7-8.2)
[2023-11-11 01:47] LABS: ETHYL ALCOHOL (ETHANOL) 0.185 % (0.000-0.010)
[2023-11-11 01:49] LABS: SALICYLATE LEVEL < 3.0 MG/DL (<30)
[2023-11-11 01:51] LABS: THYROID STIMULATING HORMONE 5.101 uIU/ML (0.55-4.78)
[2023-11-11 03:05] LABS: AMPHETAMINES LEVEL URINE NEGATIVE (NEGATIVE)
[2023-11-11 03:06] LABS: BARBITURATES URINE NEGATIVE (NEGATIVE); BENZODIAZEPINES URINE NEGATIVE (NEGATIVE); CANNABINOIDS URINE POSITIVE (NEGATIVE); COCAINE METABOLITE URINE NEGATIVE (NEGATIVE); METHADONE URINE NEGATIVE (NEGATIVE); OPIATES URINE POSITIVE (NEGATIVE); PHENCYCLIDINE URINE NEGATIVE (NEGATIVE)
[2023-11-11] MEDS: LORazepam 0.5 MG TAB PO ONE (03:15)
[2023-11-11] MEDS: ONDANSETRON 4MG ORAL DISINTEGRATING TAB PO ONE (03:15)
[2023-11-11] MEDS ORDERED: LEXA1TAB2 PO (07:54)
[2023-11-11] MEDS ORDERED: D3 S1CAP3 PO (07:57)
[2023-11-11] MEDS ORDERED: CETI-24 PO (07:57)
[2023-11-11] MEDS ORDERED: HYDR-4517 PO (07:57)
[2023-11-11] MEDS ORDERED: HOME MED LIST COMPLETE! XX SCH (08:00)
[2023-11-11] MEDS: LEVOTHYROXINE 25MCG TABLET (0.025MG) PO SCH (09:04)
[2023-11-11] MEDS: VITAMIN D 1,000 INTERNATIONAL UNITS TABLET PO SCH (09:05)
[2023-11-11] MEDS: ESCITALOPRAM OXALATE 10 MG TAB (LEXAPRO) PO SCH (09:05)
[2023-11-11] MEDS: PANTOPRAZOLE 40MG TAB (PROTONIX) PO SCH (09:06)
[2023-11-11] MEDS: CETIRIZINE (ZyrTEC) 10 MG TAB PO SCH (09:06)
[2023-11-11] MEDS: FENOFIBRATE 145MG TABLET (TRICOR) PO SCH (10:08)
[2023-11-11 14:37] VITALS: BP 135/78; TEMP 98.5; O2SAT 95
== END 2023-11-11 14:49 | disposition home or self-care (01) ==
LOC: M ED 23:54
DX: Z04.6 Encounter for general psychiatric examination, requested by authority (principal); F32.9 Major depressive disorder, single episode, unspecified; Z79.899 Other long term (current) drug therapy

== ENCOUNTER 2023-12-07 12:07 | Emergency (ER) | payer OTHER, SELFPAY ==
[~2023-12-07] VITALS: Ht 172.7 cm; Wt 132.0 kg
[~2023-12-07 12:07] MED LIST changes: +CETI-24 PO; +D3 S1CAP3 PO; +HYDR-4517 PO; +LEXA1TAB2 PO
[2023-12-07 13:07] LABS: BASO % 0.4 % (0.0-1.0); EOS # 0.1 10^3/uL (0.0-0.5); EOS % 1.2 % (0.0-3.0); HEMATOCRIT 37.4 % (36.0-47.0); HEMOGLOBIN 13.1 g/dl (12.0-15.5); LYMPH # 1.4 10^3/uL (1.5-5.0); LYMPH % 17.4 % (24.0-44.0); MEAN CORPUSCULAR HEMOGLOBIN 31.9 pg (27.0-33.0); MONO # 0.6 10^3/uL (0.0-0.8); MONO % 7.7 % (2.0-8.0); NEUTROPHILS % 73.2 % (36.0-66.0); PLATELET COUNT, AUTOMATED 338 10^3/uL (150-450); RED BLOOD COUNT 4.11 10^6/uL (4.00-5.40); WHITE BLOOD COUNT 8.2 10^3/uL (4.0-10.0)
[2023-12-07 13:28] LABS: INR 1.01; PARTIAL THROMBOPLASTIN TIME 27.2 SECONDS (24.8-34.2)
[2023-12-07 13:40] LABS: LIPASE 27 U/L (12-53)
[2023-12-07 13:41] LABS: AMYLASE 53 U/L (30-118)
[2023-12-07 13:42] LABS: ALBUMIN 3.8 G/DL (3.2-5.2); ALKALINE PHOSPHATASE 52 U/L (46-116); ALT/SGPT 37 U/L (7.0-40); AST/SGOT 24 U/L (<34); BILIRUBIN,DIRECT 0.3 MG/DL (<0.4); BILIRUBIN,TOTAL 0.7 MG/DL (0.3-1.2); BLOOD UREA NITROGEN 9 MG/DL (9-23); CALCIUM LEVEL 9.6 MG/DL (8.5-10.1); CARBON DIOXIDE LEVEL 25 MMOL/L (20-31); CHLORIDE LEVEL 107 MMOL/L (98-107); CREATININE FOR GFR 0.86 MG/DL (0.55-1.30); GLOMERULAR FILTRATION RATE > 60.0 (>58); GLUCOSE, FASTING 99 MG/DL (60-100); POTASSIUM SERUM 3.8 MMOL/L (3.5-5.1); SODIUM LEVEL 141 MMOL/L (136-145); TOTAL PROTEIN 7.2 G/DL (5.7-8.2)
[2023-12-07 14:56] LABS: CK-MB VALUE MASS 1.1 NG/ML (<3.6)
[2023-12-07 14:58] LABS: CPK CREATINE PHOSPHOKINASE 91 U/L (34-145)
[2023-12-07] MEDS ORDERED: ISOVUE-370 76% 100ML VIAL As Ordered ONE (15:28)
[2023-12-07] MEDS: NS 1,000 ML IV ONE (15:42)
[2023-12-07] MEDS: PANTOPRAZOLE 40MG VIAL IV ONE (15:42)
[2023-12-07] MEDS: METOCLOPRAMIDE INJ 10MG/2ML VIAL IV ONE (15:42)
[2023-12-07] MEDS: SUCRALFATE 1 GM TAB PO ONE (16:18)
[2023-12-07] MEDS ORDERED: SUCR1SS PO (16:38)
[2023-12-07 16:58] VITALS: BP 142/85; TEMP 97.8; O2SAT 96
== END 2023-12-07 16:59 | disposition home or self-care (01) ==
LOC: M ED 12:07
DX: R10.10 Upper abdominal pain, unspecified (principal); K30 Functional dyspepsia; I45.81 Long QT syndrome; I10 Essential (primary) hypertension; K21.9 Gastro-esophageal reflux disease without esophagitis; E78.5 Hyperlipidemia, unspecified; E03.9 Hypothyroidism, unspecified; Z79.1 Long term (current) use of non-steroidal anti-inflammatories (NSAID); Z79.810 Long term (current) use of selective estrogen receptor modulators (SERMs); Z79.899 Other long term (current) drug therapy
CPT/HCPCS: 74177; 80048; 80076; 81001; 82150; 82550; 82553; 83605; 83690; 84484; 85025; 85610; 85730; 87507; 93005; 96361; 96374; 99284; C9113; J2765; Q9967

== ENCOUNTER → 2023-12-21 | Outpatient (REF) | payer OTHER ==
[~2023-12-21] MED LIST changes: +SUCR1SS PO
[2023-12-28 07:08] LABS: CANNABINOID, URINE Positive (Cutoff=20); CARBOXY THC (GC/MS) 171 ng/mL (Cutoff=10); CREATININE, URINE 207.6 mg/dL (20.0-300.0)
== END ==
LOC: M LAB REF 16:23
PROVIDERS: ATTEND Physician Assistant
DX: Z79.899 Other long term (current) drug therapy (principal)

== ENCOUNTER → 2024-03-29 | Outpatient (CLI) | payer OTHER ==
[2024-03-29 13:32] LABS: HEMATOCRIT 37.1 % (36.0-47.0); HEMOGLOBIN 12.2 g/dl (12.0-15.5); MEAN CORPUSCULAR HEMOGLOBIN 31.2 pg (27.0-33.0); MEAN CORPUSCULAR HGB CONC 32.9 g/dl (32.0-36.5); MEAN CORPUSCULAR VOLUME 94.9 fl (80.0-96.0); PLATELET COUNT, AUTOMATED 299 10^3/uL (150-450); RED BLOOD COUNT 3.91 10^6/uL (4.00-5.40); WHITE BLOOD COUNT 5.6 10^3/uL (4.0-10.0)
[2024-03-29 13:54] LABS: HEMOGLOBIN A1c 5.2 % (4.0-6.0)
[2024-03-29 14:00] LABS: ALBUMIN 3.6 G/DL (3.2-5.2); ALKALINE PHOSPHATASE 51 U/L (46-116); ALT/SGPT 27 U/L (7.0-40); AST/SGOT 14 U/L (<34); BILIRUBIN,TOTAL 0.4 MG/DL (0.3-1.2); BLOOD UREA NITROGEN 13 MG/DL (9-23); CALCIUM LEVEL 9.1 MG/DL (8.5-10.1); CARBON DIOXIDE LEVEL 29 MMOL/L (20-31); CHLORIDE LEVEL 108 MMOL/L (98-107); CHOLESTEROL LEVEL 194 MG/DL (<200); CHOLESTEROL RISK RATIO 3.64 (<5); CREATININE FOR GFR 0.77 MG/DL (0.55-1.30); GLOMERULAR FILTRATION RATE > 60.0 (>58); GLUCOSE, FASTING 110 MG/DL (60-100); HDL CHOLESTEROL 53.2 MG/DL (>40); LDL CHOLESTEROL 109.2 MG/DL (<100); NON-HDL-C 140.8 MG/DL; POTASSIUM SERUM 4.2 MMOL/L (3.5-5.1); SODIUM LEVEL 140 MMOL/L (136-145); TOTAL PROTEIN 6.7 G/DL (5.7-8.2); TRIGLYCERIDES LEVEL 158 MG/DL (<150)
[2024-03-29 14:03] LABS: THYROID STIMULATING HORMONE 1.791 uIU/ML (0.55-4.78); TOTAL 25(OH) VITAMIN D 33.5 NG/ML (20.0-100.0)
== END ==
LOC: M WUC 09:24
PROVIDERS: ATTEND Physician Assistant
DX: E03.9 Hypothyroidism, unspecified (principal); E55.9 Vitamin D deficiency, unspecified; R73.01 Impaired fasting glucose; I10 Essential (primary) hypertension

== ENCOUNTER 2024-05-13 15:53 | Emergency (ER) | payer OTHER ==
[~2024-05-13] VITALS: Ht 172.7 cm; Wt 133.4 kg
[2024-05-13] MEDS: ONDANSETRON 4MG 2ML VIAL IV ONE (17:28)
[2024-05-13 17:38] LABS: BASO % 0.4 % (0.0-1.0); EOS # 0.2 10^3/uL (0.0-0.5); EOS % 2.2 % (0.0-3.0); HEMATOCRIT 35.9 % (36.0-47.0); HEMOGLOBIN 12.2 g/dl (12.0-15.5); LYMPH # 1.4 10^3/uL (1.5-5.0); LYMPH % 20.7 % (24.0-44.0); MEAN CORPUSCULAR VOLUME 91.1 fl (80.0-96.0); MONO # 0.5 10^3/uL (0.0-0.8); MONO % 6.7 % (2.0-8.0); NEUTROPHILS # 4.7 10^3/uL (1.5-8.5); NEUTROPHILS % 69.9 % (36.0-66.0); PLATELET COUNT, AUTOMATED 272 10^3/uL (150-450); RED BLOOD COUNT 3.94 10^6/uL (4.00-5.40); WHITE BLOOD COUNT 6.7 10^3/uL (4.0-10.0)
[2024-05-13] MEDS: ACETAMINOPHEN 325 MG TAB PO ONE (17:55)
[2024-05-13 18:00] LABS: ALBUMIN 3.7 G/DL (3.2-5.2); BILIRUBIN,DIRECT 0.1 MG/DL (<0.4); BILIRUBIN,TOTAL 0.4 MG/DL (0.3-1.2); TOTAL PROTEIN 6.8 G/DL (5.7-8.2)
[2024-05-13] MEDS ORDERED: ISOVUE-370 76% 100ML VIAL As Ordered ONE (18:20)
[2024-05-13 18:51] LABS: APPEARANCE, URINE CLOUDY (CLEAR); BACTERIA, URINE AUTO NEGATIVE (NEGATIVE); BILIRUBIN, URINE AUTO 1+ (NEGATIVE); BLOOD, URINE BLOOD NEGATIVE (NEGATIVE); COLOR, URINE AMBER (YELLOW); GLUCOSE, URINE (UA) AUTO NEGATIVE (NEGATIVE); KETONE, URINE AUTO TRACE mg/dL (NEGATIVE); LEUKOCYTE ESTERASE, URINE AUTO NEGATIVE (NEGATIVE); MUCUS, URINE LARGE (NEGATIVE); NITRITE, URINE AUTO NEGATIVE (NEGATIVE); PROTEIN, URINE AUTO 2+ mg/dL (NEGATIVE); RBC, URINE AUTO 3 /HPF (0-3); SPECIFIC GRAVITY URINE AUTO 1.034 (1.002-1.035); SQUAMOUS EPITHELIAL CELL UR AU 12 /HPF (0-6); WBC, URINE AUTO 3 /HPF (0-3)
[2024-05-13] MEDS: MAALOX 30 ML SUSP *UDC PO ONE (19:58)
[2024-05-13] MEDS: LIDOCAINE VISCOUS 2% SOLN 15ML UDC PO ONE (19:58)
[2024-05-13] MEDS ORDERED: SUCR1SS PO (21:17)
[2024-05-13 21:37] VITALS: BP 154/87; TEMP 98.2; O2SAT 95
== END 2024-05-13 21:39 | disposition home or self-care (01) ==
LOC: M ED 15:53
DX: R10.13 Epigastric pain (principal); K76.0 Fatty (change of) liver, not elsewhere classified; K59.00 Constipation, unspecified; K42.9 Umbilical hernia without obstruction or gangrene; F12.10 Cannabis abuse, uncomplicated; F10.10 Alcohol abuse, uncomplicated; Z87.891 Personal history of nicotine dependence; Z90.49 Acquired absence of other specified parts of digestive tract; Z79.899 Other long term (current) drug therapy
CPT/HCPCS: 71045; 74177; 80047; 80076; 81001; 83690; 85025; 96374; 99284; J2405; Q9967

== ENCOUNTER → 2024-06-03 | Outpatient (REF) | payer OTHER, MEDICAID | LOC: M LAB REF 16:23 | PROVIDERS: ATTEND Physician Assistant | DX: J02.9 Acute pharyngitis, unspecified (principal) ==

== ENCOUNTER → 2025-02-24 | Outpatient (CLI) | payer OTHER ==
[~2025-02-24] MED LIST changes: -EQL50TAB2 PO; +VITA1TAB82 PO
== END ==
LOC: M RAD 14:12
PROVIDERS: ATTEND Internal Medicine Gastroenterology
DX: T18.4XXA Foreign body in colon, initial encounter (principal)

== ENCOUNTER → 2025-02-24 | Outpatient (REF) | payer OTHER | LOC: M LAB REF 16:22 | PROVIDERS: ATTEND Surgery | DX: L72.0 Epidermal cyst (principal) ==

== ENCOUNTER 2025-03-04 18:26 | Observation (INO) | payer OTHER ==
[~2025-03-04] VITALS: Ht 172.7 cm; Wt 130.3 kg
[~2025-03-04 18:26] MED LIST changes: -ZOLP5TAB; +ZOLP5TAB9
[2025-03-04 19:41] LABS: KETONE, URINE AUTO RFX NEGATIVE (NEGATIVE); LEUKOCYTE ESTERASE UR AUTO RFX NEGATIVE (NEGATIVE); NITRITE, URINE AUTO RFX NEGATIVE (NEGATIVE); RBC, URINE AUTO RFX 1 /HPF (0-3); SQUAM EPITHELIAL CELL UR AURFX 3 /HPF (0-6); WBC, URINE AUTO RFX 2 /HPF (0-3)
[2025-03-04 19:43] LABS: BASO # 0.0 10^3/uL (0.0-0.2); BASO % 0.3 % (0.0-1.0); EOS # 0.2 10^3/uL (0.0-0.5); EOS % 2.2 % (0.0-3.0); LYMPH # 2.1 10^3/uL (1.5-5.0); LYMPH % 21.9 % (24.0-44.0); MONO # 0.8 10^3/uL (0.0-0.8); MONO % 8.4 % (2.0-8.0); NEUTROPHILS # 6.5 10^3/uL (1.5-8.5); NEUTROPHILS % 66.9 % (36.0-66.0); PLATELET COUNT, AUTOMATED 297 10^3/uL (150-450)
[2025-03-04 20:02] LABS: ALT/SGPT 25.0 U/L (7.0-40); AST/SGOT 26.0 U/L (<34)
[2025-03-04] MEDS: KETOROLAC 30 MG/ML 1 ML VIAL IV ONE (20:22)
[2025-03-04] MEDS ORDERED: ISOVUE-370 76% 100 ML VIAL As Ordered ONE (20:51)
[2025-03-04] MEDS: MORPHINE 4 MG/ML 1 ML VIAL IV ONE (21:06)
[2025-03-04 21:10] LABS: CALCIUM LEVEL 9.1 MG/DL (8.5-10.1); CARBON DIOXIDE LEVEL 28.0 MMOL/L (20-31); CHLORIDE LEVEL 102.0 MMOL/L (98-107); CREATININE FOR GFR 1.6 MG/DL (0.55-1.30); GLOMERULAR FILTRATION RATE 39.8 (>58); POTASSIUM SERUM 3.3 MMOL/L (3.5-5.1); SODIUM LEVEL 141.0 MMOL/L (136-145)
[2025-03-04] MEDS: POTASSIUM CHLORIDE 10MEQ SR TABLET PO ONE (21:21)
[2025-03-04] MEDS: NS (Normal Saline) 0.9% 1,000 ML IV ONE (23:04)
[2025-03-04] MEDS ORDERED: ALBU8.5H INH (23:30)
[2025-03-04] MEDS ORDERED: HOME MED LIST COMPLETE! XX SCH (23:35)
[2025-03-04] MEDS ORDERED: MOM 30 ML SUSPENSION UDC PO PRN (23:35)
[2025-03-04] MEDS ORDERED: MAALOX 30 ML SUSP *UDC PO PRN (23:35)
[2025-03-04] MEDS: LR 1,000 ML IV ONE (23:46)
[2025-03-05 00:36] VITALS: BP 145/74; TEMP 97.6; O2SAT 95
[2025-03-05 00:48] LABS: POTASSIUM RANDOM URINE 11.0 MMOL/L
[2025-03-05 00:59] LABS: SODIUM,RANDOM URINE < 10 MMOL/L
[2025-03-05] MEDS: ACETAMINOPHEN 325 MG TAB PO PRN (01:12)
[2025-03-05] MEDS: PANTOPRAZOLE 40MG VIAL IV ONE (02:27)
[2025-03-05] MEDS: NS (Normal Saline) 0.9% 1,000 ML IV SCH (02:27)
[2025-03-05] MEDS: metroNIDAZOLE 500 MG in IV 1 EA IV SCH (02:27)
[2025-03-05] MEDS: KETOROLAC 30 MG/ML 1 ML VIAL IV ONE (02:27)
[2025-03-05 04:50] VITALS: BP 137/75; TEMP 97.2; O2SAT 97
[2025-03-05] MEDS ORDERED: ALBUTEROL 90 MCG/ACT 8 GM HFA INHALER INH PRN (05:35)
[2025-03-05 07:01] LABS: PLATELET COUNT, AUTOMATED 227 10^3/uL (150-450)
[2025-03-05 07:28] LABS: ALT/SGPT 51 U/L (7.0-40); AST/SGOT 93 U/L (<34); CALCIUM LEVEL 8.4 MG/DL (8.5-10.1); CARBON DIOXIDE LEVEL 28 MMOL/L (20-31); CHLORIDE LEVEL 109 MMOL/L (98-107); CREATININE FOR GFR 0.98 MG/DL (0.55-1.30); GLOMERULAR FILTRATION RATE 71.6 (>58); MAGNESIUM LEVEL 1.7 MG/DL (1.8-2.4); POTASSIUM SERUM 3.7 MMOL/L (3.5-5.1); SODIUM LEVEL 146 MMOL/L (136-145)
[2025-03-05 08:00] LABS: OSMOLALITY SERUM 300 MOSM/KG (275-295)
[2025-03-05] MEDS: LEVOTHYROXINE 25 MCG TABLET (0.025MG) PO SCH (09:19)
[2025-03-05] MEDS: ESCITALOPRAM OXALATE 10 MG TABLET PO SCH (09:19)
[2025-03-05] MEDS: VITAMIN D 1,000 INTERNATIONAL UNITS TABLET PO SCH (09:19)
[2025-03-05] MEDS: amLODIPine 10 MG TAB PO SCH (09:19)
[2025-03-05] MEDS: DOCUSATE SODIUM 100 MG CAPSULE PO SCH (09:19)
[2025-03-05] MEDS: CETIRIZINE 10 MG TAB PO SCH (09:20)
[2025-03-05 09:59] LABS: HEPATITIS C VIRUS ABY INDEX < 0.02 INDEX (<0.8)
[2025-03-05] MEDS: MAG SULF 1GM/100ML (MAG RUN) 1 GM in IV 1 EA IV SCH (11:07)
[2025-03-05 12:00] VITALS: BP 129/55; TEMP 97.5; O2SAT 98
[2025-03-05] MEDS: FENOFIBRATE 145 MG TABLET PO SCH (12:09)
[2025-03-05] MEDS ORDERED: ONDANSETRON 4MG 2ML VIAL IV PRN (16:15)
[2025-03-05] MEDS: SUCRALFATE SUSP 1GM/10ML UD PO SCH (17:30)
[2025-03-05] MEDS: RIVAROXABAN 10MG TAB PO SCH (17:30)
[2025-03-05 20:11] VITALS: BP 143/75; TEMP 97.3; O2SAT 97
[2025-03-06 05:33] LABS: BASO # 0.0 10^3/uL (0.0-0.2); BASO % 0.4 % (0.0-1.0); EOS # 0.2 10^3/uL (0.0-0.5); EOS % 4.2 % (0.0-3.0); LYMPH # 1.2 10^3/uL (1.5-5.0); LYMPH % 25.8 % (24.0-44.0); MONO # 0.4 10^3/uL (0.0-0.8); MONO % 8.0 % (2.0-8.0); NEUTROPHILS # 2.8 10^3/uL (1.5-8.5); NEUTROPHILS % 61.4 % (36.0-66.0); PLATELET COUNT, AUTOMATED 246 10^3/uL (150-450)
[2025-03-06 06:00] LABS: ALT/SGPT 48 U/L (7.0-40); AST/SGOT 46 U/L (<34); CALCIUM LEVEL 8.6 MG/DL (8.5-10.1); CARBON DIOXIDE LEVEL 28 MMOL/L (20-31); CHLORIDE LEVEL 106 MMOL/L (98-107); CREATININE FOR GFR 0.71 MG/DL (0.55-1.30); GLOMERULAR FILTRATION RATE > 90.0 (>58); MAGNESIUM LEVEL 2.0 MG/DL (1.8-2.4); POTASSIUM SERUM 3.6 MMOL/L (3.5-5.1); SODIUM LEVEL 144 MMOL/L (136-145)
[2025-03-06 06:36] VITALS: BP 124/66; TEMP 97.2; O2SAT 97
[2025-03-06 08:11] VITALS: BP 120/70
[2025-03-06] MEDS: PANTOPRAZOLE 40MG TAB PO SCH (08:11)
[2025-03-06] MEDS ORDERED: PANTOPRAZOLE 40MG VIAL IV SCH (09:00)
[2025-03-06] MEDS ORDERED: ONDA-282 PO (09:58)
[2025-03-06] MEDS ORDERED: CARA1TAB6 PO (11:10)
[2025-04-14] MEDS ORDERED: SUCR1TAB56 PO (12:44)
== END 2025-03-06 12:05 | disposition home or self-care (01) ==
LOC: M ED 18:26 → M ED INP 18:27 → M MS5PR 03-05 00:35
PROVIDERS: ADMIT Student in an Organized Health Care Education/Training Program; ATTEND Internal Medicine
DX: N17.9 Acute kidney failure, unspecified (principal); R11.2 Nausea with vomiting, unspecified; R19.7 Diarrhea, unspecified; E87.6 Hypokalemia; E87.0 Hyperosmolality and hypernatremia; E83.42 Hypomagnesemia; K76.0 Fatty (change of) liver, not elsewhere classified; I10 Essential (primary) hypertension; E78.5 Hyperlipidemia, unspecified; E03.9 Hypothyroidism, unspecified; F41.9 Anxiety disorder, unspecified; F32.A Depression, unspecified; E55.9 Vitamin D deficiency, unspecified; M54.50 Low back pain, unspecified; K21.9 Gastro-esophageal reflux disease without esophagitis; Z79.899 Other long term (current) drug therapy
CPT/HCPCS: 36415; 71045; 74018; 74177; 80047; 80048; 80053; 80074; 80076; 81001; 82570; 83690; 83735; 83930; 83935; 84133; 84300; 85025; 85027; 87507; 93005; 96361; 96365; 96366; 96375; 96376; 99284; J1836; J1885; J2060; J2470; J3475; Q9967

== ENCOUNTER → 2025-03-17 | Outpatient (REF) | payer OTHER ==
[~2025-03-17] MED LIST changes: +ALBU8.5H INH; +ONDA-282 PO; +ZOLP5TAB; -ZOLP5TAB9
[2025-03-17 18:34] LABS: CALCIUM LEVEL 8.2 MG/DL (8.5-10.1); CARBON DIOXIDE LEVEL 28 MMOL/L (20-31); CHLORIDE LEVEL 106 MMOL/L (98-107); CREATININE FOR GFR 0.79 MG/DL (0.55-1.30); GLOMERULAR FILTRATION RATE > 90.0 (>58); MAGNESIUM LEVEL 1.5 MG/DL (1.8-2.4); POTASSIUM SERUM 3.8 MMOL/L (3.5-5.1); SODIUM LEVEL 144 MMOL/L (136-145)
== END ==
LOC: M LAB REF 17:55
PROVIDERS: ATTEND Student in an Organized Health Care Education/Training Program
DX: N17.9 Acute kidney failure, unspecified (principal); E83.42 Hypomagnesemia

== ENCOUNTER 2025-04-28 11:58 | Day surgery (SDC) | payer OTHER ==
[~2025-04-28] VITALS: Ht 172.7 cm; Wt 121.6 kg
[~2025-04-28 11:58] MED LIST changes: -ZOLP5TAB; +ZOLP5TAB9
[2025-04-28] MEDS ORDERED: LIDOCAINE 2% 100 MG/5 ML SDV (FOR ANES.) As Ordered ONE (12:53)
[2025-04-28] MEDS ORDERED: GLYCOPYRROLATE INJ 0.2 MG/ML 2 ML VIAL As Ordered ONE (13:07)
[2025-04-28 13:24] VITALS: TEMP 97.7
[2025-04-28 13:41] VITALS: BP 128/85; O2SAT 94
== END 2025-04-28 13:46 | disposition home or self-care (01) ==
LOC: M OPP 11:58
PROVIDERS: ATTEND Internal Medicine Gastroenterology
DX: D12.8 Benign neoplasm of rectum (principal); K64.8 Other hemorrhoids; K58.2 Mixed irritable bowel syndrome; R19.4 Change in bowel habit; R10.13 Epigastric pain; R10.84 Generalized abdominal pain; R19.7 Diarrhea, unspecified; G47.30 Sleep apnea, unspecified; Z79.891 Long term (current) use of opiate analgesic; Z79.899 Other long term (current) drug therapy
CPT/HCPCS: 43239; 45380; 45385; 88305; J1596; J3010

== ENCOUNTER → 2025-07-02 | Outpatient (REF) | payer OTHER | LOC: M LAB REF 17:15 | PROVIDERS: ATTEND Nurse Practitioner Family | DX: J02.9 Acute pharyngitis, unspecified (principal) ==